=== PATIENT | female | born 1975 | race Hispanic/Latino ===

== ENCOUNTER → 2018-06-09 | Outpatient (CLI) | payer MEDICARE ==
[~2018-06-09] MED LIST: IOHEXOL-350 50ML VIAL IV ONE
== END | disposition home or self-care (01) ==
LOC: RAH 08:23
PROVIDERS: ATTEND Family Medicine
DX: R10.11 Right upper quadrant pain (principal); E11.69 Type 2 diabetes mellitus with other specified complication; Z90.49 Acquired absence of other specified parts of digestive tract
CPT/HCPCS: 74170; Q9967

== ENCOUNTER 2018-12-04 22:42 | Emergency (ER) | payer MEDICARE ==
[2018-12-04 23:31] LABS: APPEARANCE,URINE Cloudy (CLEAR); BILIRUBIN,URINE Negative (NEGATIVE); COLOR,URINE Yellow (YELLOW); GLUCOSE, URINE (UA) Negative (NEGATIVE); KETONES,URINE Negative (NEGATIVE); LEUKOCYTE ESTERASE ,URINE Large (NEGATIVE); NITRATE,URINE Negative (NEGATIVE); OCCULT BLOOD,URINE Negative (NEGATIVE); PROTEIN,URINE Negative (NEGATIVE); UROBILINOGEN,URINE 0.2 mg/dL (0.2-1.0)
[2018-12-04 23:42] LABS: BASOPHILS % (AUTO) 0.6 % (0.0-5.0); EOSINOPHILS % (AUTO) 2.8 % (0.0-8.0); HEMATOCRIT 38.2 % (36-48); LYMPHOCYTES % (AUTO) 15.3 % (21.0-51.0); MEAN CORPUSCULAR HEMOGLOBIN 28.9 pg (27.0-33.0); MEAN CORPUSCULAR HGB CONC 33.5 g/dL (32.0-36.0); MEAN CORPUSCULAR VOLUME 86.4 fL (79-99); MONOCYTES % (AUTO) 5.3 % (3.0-13.0); NUCLEATED RED BLOOD CELLS 0.1 % (0.0-0.19); PLATELET COUNT (AUTO) 292 K/uL (130-400); RED BLOOD CELL COUNT(AUTO) 4.43 MIL/uL (4.00-5.50); RED CELL DISTRIBUTION WIDTH 12.8 % (11.0-15.5); WHITE BLOOD COUNT (AUTO) 7.5 K/uL (4.8-10.8)
[2018-12-04] MEDS ORDERED: ONDANSETRON HCL 4 MG/2 ML VIAL ONE (23:42)
[2018-12-04] MEDS ORDERED: METOCLOPRAMIDE 10 MG/2 ML VIAL ONE (23:42)
[2018-12-04] MEDS ORDERED: SODIUM CHLORIDE 0.9% 1000ML 2,000 ML IV ONE (23:43)
[2018-12-04 23:47] LABS: BACTERIA,URINE None Seen /HPF (None Seen); RBC,URINE None Seen /HPF (0-1)
[2018-12-04 23:50] LABS: CREATININE 0.8 mg/dL (0.5-1.5); POTASSIUM 4.1 mmol/L (3.5-5.1)
[2018-12-04 23:54] LABS: INR 0.92 (0.85-1.15); PROTHROMBIN TIME 9.7 SEC (9.6-11.6)
[2018-12-04 23:55] LABS: ALBUMIN 3.2 g/dL (3.5-5.0); BILIRUBIN,TOTAL 0.2 mg/dL (0.2-1.0); TOTAL PROTEIN, SERUM 6.9 g/dL (6.0-8.3)
[2018-12-04] MEDS ORDERED: IOHEXOL-350 75 ML VIAL IV ONE (23:58)
[2018-12-05] MEDS ORDERED: DIPHENOXYLATE HCL/ATROPINE 2.5/0.025 MG TAB PO ONE (01:49)
[2018-12-05] MEDS ORDERED: DiphenhydrAMINE HCL 50 MG/ML VIAL ONE (01:49)
== END 2018-12-05 02:08 | disposition home or self-care (01) ==
LOC: EEVIPCON 22:42 → EDH 22:42
DX: E86.9 Volume depletion, unspecified (principal); R11.2 Nausea with vomiting, unspecified; R19.7 Diarrhea, unspecified; R10.31 Right lower quadrant pain; E11.9 Type 2 diabetes mellitus without complications; E78.5 Hyperlipidemia, unspecified; F41.9 Anxiety disorder, unspecified; F32.9 Major depressive disorder, single episode, unspecified; Z88.6 Allergy status to analgesic agent; Z90.710 Acquired absence of both cervix and uterus
CPT/HCPCS: 36415; 74177; 80053; 81001; 82550; 83605; 83690; 84484; 85025; 85610; 85730; 93005; 96361; 96374; 96375 ×2; 99285; J1200; J2405; J2765; J7030; Q9967

== ENCOUNTER 2019-09-27 | Emergency (ER) | payer MEDICARE | END 2019-09-27 21:11 | disposition home or self-care (01) ==

== ENCOUNTER 2020-02-20 19:55 | Emergency (ER) | payer MEDICARE ==
[2020-02-20 20:31] LABS: APPEARANCE,URINE Clear (CLEAR); BILIRUBIN,URINE Negative (NEGATIVE); COLOR,URINE Yellow (YELLOW); GLUCOSE, URINE (UA) Negative (NEGATIVE); KETONES,URINE Negative (NEGATIVE); LEUKOCYTE ESTERASE ,URINE Negative (NEGATIVE); NITRATE,URINE Negative (NEGATIVE); OCCULT BLOOD,URINE Negative (NEGATIVE); PH,URINE 6.5 (5.0-8.0); PROTEIN,URINE Negative (NEGATIVE)
[2020-02-20 21:12] LABS: BASOPHILS % (AUTO) 0.5 % (0.0-5.0); EOSINOPHILS % (AUTO) 3.6 % (0.0-8.0); HEMATOCRIT 34.5 % (36-48); LYMPHOCYTES % (AUTO) 35.2 % (21.0-51.0); MEAN CORPUSCULAR HEMOGLOBIN 28.2 pg (27.0-33.0); MEAN CORPUSCULAR HGB CONC 32.8 g/dL (32.0-36.0); NEUTROPHILS % (AUTO) 52.5 % (40.0-77.0); PLATELET COUNT (AUTO) 314 K/uL (130-400); RED BLOOD CELL COUNT(AUTO) 4.01 MIL/uL (4.00-5.50); RED CELL DISTRIBUTION WIDTH 12.4 % (11.0-15.5); WHITE BLOOD COUNT (AUTO) 8.4 K/uL (4.8-10.8)
[2020-02-20 21:19] LABS: CREATININE 0.8 mg/dL (0.5-1.5); POTASSIUM 3.7 mmol/L (3.5-5.1)
[2020-02-20 21:24] LABS: ALBUMIN 3.4 g/dL (3.5-5.0); BILIRUBIN,TOTAL 0.2 mg/dL (0.2-1.0); TOTAL PROTEIN, SERUM 6.9 g/dL (6.0-8.3)
[2020-02-20] MEDS ORDERED: DiphenhydrAMINE HCL 50 MG/ML VIAL ONE (22:05)
[2020-02-20] MEDS ORDERED: FAMOTIDINE/PF 20 MG/2 ML VIAL IV ONE (22:06)
[2020-02-20] MEDS ORDERED: METOCLOPRAMIDE 10 MG/2 ML VIAL ONE (22:07)
[2020-02-20] MEDS ORDERED: SODIUM CHLORIDE 0.9% 100 ML IV ONE (22:18)
[2020-02-20] MEDS ORDERED: MORPHINE SULFATE 4 MG/1ML SYG ONE (23:54)
== END 2020-02-21 01:30 | disposition home or self-care (01) ==
LOC: EDH 19:55
DX: K52.89 Other specified noninfective gastroenteritis and colitis (principal); E78.5 Hyperlipidemia, unspecified; E11.9 Type 2 diabetes mellitus without complications; F41.9 Anxiety disorder, unspecified; Z79.899 Other long term (current) drug therapy; Z90.710 Acquired absence of both cervix and uterus
CPT/HCPCS: 36415; 74176; 80053; 81003; 81025; 85025; 96374; 96375 ×2; 99284; J1200; J2270; J2765; J3490

== ENCOUNTER 2020-03-11 18:41 | Emergency (ER) | payer MEDICARE ==
[2020-03-11] MEDS ORDERED: ONDANSETRON HCL 4 MG/2 ML VIAL ONE (20:06)
[2020-03-11] MEDS ORDERED: KETOROLAC TROMETHAMINE 30MG/ML ONE (20:06)
[2020-03-11 20:33] LABS: APPEARANCE,URINE Clear (CLEAR); BILIRUBIN,URINE Negative (NEGATIVE); COLOR,URINE Yellow (YELLOW); GLUCOSE, URINE (UA) Negative (NEGATIVE); KETONES,URINE Negative (NEGATIVE); LEUKOCYTE ESTERASE ,URINE Negative (NEGATIVE); NITRATE,URINE Negative (NEGATIVE); OCCULT BLOOD,URINE Negative (NEGATIVE); PH,URINE 5.5 (5.0-8.0); PROTEIN,URINE Negative (NEGATIVE)
[2020-03-11 20:37] LABS: BASOPHILS % (AUTO) 0.8 % (0.0-5.0); EOSINOPHILS % (AUTO) 3.3 % (0.0-8.0); LYMPHOCYTES % (AUTO) 37.1 % (21.0-51.0); MEAN CORPUSCULAR HEMOGLOBIN 28.9 pg (27.0-33.0); MEAN CORPUSCULAR HGB CONC 33.1 g/dL (32.0-36.0); MEAN CORPUSCULAR VOLUME 87.1 fL (79-99); NEUTROPHILS % (AUTO) 50.5 % (40.0-77.0); PLATELET COUNT (AUTO) 310 K/uL (130-400); RED BLOOD CELL COUNT(AUTO) 4.02 MIL/uL (4.00-5.50); RED CELL DISTRIBUTION WIDTH 12.3 % (11.0-15.5); WHITE BLOOD COUNT (AUTO) 7.5 K/uL (4.8-10.8)
[2020-03-11 20:45] LABS: CREATININE 0.7 mg/dL (0.5-1.5); POTASSIUM 3.9 mmol/L (3.5-5.1)
[2020-03-11 20:50] LABS: ALBUMIN 3.5 g/dL (3.5-5.0); BILIRUBIN,TOTAL 0.2 mg/dL (0.2-1.0)
[2020-03-11] MEDS ORDERED: IOHEXOL-350 75 ML VIAL IV ONE (21:13)
[2020-03-11] MEDS ORDERED: MORPHINE SULFATE 2 MG/ML 1ML SYG ONE (21:19)
== END 2020-03-11 23:46 | disposition home or self-care (01) ==
LOC: EDH 18:41
DX: N20.0 Calculus of kidney (principal); E11.9 Type 2 diabetes mellitus without complications; E78.5 Hyperlipidemia, unspecified; F41.9 Anxiety disorder, unspecified; F32.9 Major depressive disorder, single episode, unspecified; Z90.710 Acquired absence of both cervix and uterus; Z98.890 Other specified postprocedural states; Z88.6 Allergy status to analgesic agent
CPT/HCPCS: 36415; 74177; 80053; 81003; 83690; 84484; 85025; 96374; 96375; 99285; J1885; J2405; Q9967

== ENCOUNTER 2020-03-26 11:22 | Emergency (ER) | payer MEDICARE ==
[2020-03-26] MEDS ORDERED: ONDANSETRON 4 MG TABLET ONE (12:31)
[2020-03-26] MEDS ORDERED: MORPHINE SULFATE 4 MG/1ML SYG ONE (12:31)
[2020-03-26 12:51] LABS: APPEARANCE,URINE Clear (CLEAR); BILIRUBIN,URINE Negative (NEGATIVE); COLOR,URINE Yellow (YELLOW); GLUCOSE, URINE (UA) Negative (NEGATIVE); KETONES,URINE Negative (NEGATIVE); LEUKOCYTE ESTERASE ,URINE Negative (NEGATIVE); NITRATE,URINE Negative (NEGATIVE); OCCULT BLOOD,URINE Negative (NEGATIVE); PROTEIN,URINE Negative (NEGATIVE); UROBILINOGEN,URINE 0.2 mg/dL (0.2-1.0)
[2020-03-26 13:20] LABS: BASOPHILS % (AUTO) 0.6 % (0.0-5.0); EOSINOPHILS % (AUTO) 3.1 % (0.0-8.0); HEMATOCRIT 38.9 % (36-48); LYMPHOCYTES % (AUTO) 36.3 % (21.0-51.0); MEAN CORPUSCULAR HEMOGLOBIN 28.1 pg (27.0-33.0); MEAN CORPUSCULAR HGB CONC 32.4 g/dL (32.0-36.0); MEAN CORPUSCULAR VOLUME 86.8 fL (79-99); MONOCYTES % (AUTO) 7.4 % (3.0-13.0); NEUTROPHILS % (AUTO) 52.3 % (40.0-77.0); PLATELET COUNT (AUTO) 325 K/uL (130-400); RED BLOOD CELL COUNT(AUTO) 4.48 MIL/uL (4.00-5.50); RED CELL DISTRIBUTION WIDTH 12.2 % (11.0-15.5); WHITE BLOOD COUNT (AUTO) 6.2 K/uL (4.8-10.8)
[2020-03-26 13:31] LABS: CREATININE 0.7 mg/dL (0.5-1.5); POTASSIUM 3.9 mmol/L (3.5-5.1)
[2020-03-26 13:35] LABS: ALBUMIN 3.6 g/dL (3.5-5.0); BILIRUBIN,TOTAL 0.2 mg/dL (0.2-1.0); TOTAL PROTEIN, SERUM 7.4 g/dL (6.0-8.3)
[2020-03-26 13:51] LABS: B-TYPE NATRIURETIC PEPTIDE 18 pg/mL (0-100)
[2020-03-26] MEDS ORDERED: KETOROLAC TROMETHAMINE 30MG/ML ONE (14:25)
[2020-03-26] MEDS ORDERED: CYCLOBENZAPRINE HCL 10 MG TABLET ONE (14:26)
== END 2020-03-26 14:39 | disposition home or self-care (01) ==
LOC: EDH 11:22
DX: R07.89 Other chest pain (principal); M54.5 Low back pain; R42 Dizziness and giddiness; R11.0 Nausea; E11.9 Type 2 diabetes mellitus without complications; E78.5 Hyperlipidemia, unspecified; F41.9 Anxiety disorder, unspecified; F32.9 Major depressive disorder, single episode, unspecified; Z88.6 Allergy status to analgesic agent; Z90.710 Acquired absence of both cervix and uterus
CPT/HCPCS: 36415; 71045; 80053; 81003; 82550; 83880; 84484; 85025; 93005; 96372 ×2; 99285; J1885; J2270; Q0162

== ENCOUNTER 2020-04-16 20:15 | Emergency (ER) | payer MEDICARE ==
[2020-04-16] MEDS ORDERED: METOCLOPRAMIDE 10 MG/2 ML VIAL ONE (21:18)
[2020-04-16] MEDS ORDERED: 0.9%NACL 1000ML 1,000 ML IV ONE (21:19)
[2020-04-16] MEDS ORDERED: DiphenhydrAMINE HCL 50 MG/ML VIAL ONE (21:19)
[2020-04-16 21:39] LABS: BASOPHILS % (AUTO) 0.6 % (0.0-5.0); EOSINOPHILS % (AUTO) 3.3 % (0.0-8.0); HEMATOCRIT 37.5 % (36-48); LYMPHOCYTES % (AUTO) 33.6 % (21.0-51.0); MEAN CORPUSCULAR HEMOGLOBIN 28.7 pg (27.0-33.0); MEAN CORPUSCULAR HGB CONC 33.1 g/dL (32.0-36.0); MEAN CORPUSCULAR VOLUME 86.8 fL (79-99); MONOCYTES % (AUTO) 7.7 % (3.0-13.0); NEUTROPHILS % (AUTO) 54.6 % (40.0-77.0); PLATELET COUNT (AUTO) 344 K/uL (130-400); RED BLOOD CELL COUNT(AUTO) 4.32 MIL/uL (4.00-5.50); RED CELL DISTRIBUTION WIDTH 11.9 % (11.0-15.5); WHITE BLOOD COUNT (AUTO) 8.7 K/uL (4.8-10.8)
[2020-04-16 21:44] LABS: APPEARANCE,URINE Clear (CLEAR); BILIRUBIN,URINE Negative (NEGATIVE); COLOR,URINE Yellow (YELLOW); GLUCOSE, URINE (UA) Negative (NEGATIVE); KETONES,URINE Negative (NEGATIVE); LEUKOCYTE ESTERASE ,URINE Trace (NEGATIVE); NITRATE,URINE Negative (NEGATIVE); OCCULT BLOOD,URINE Negative (NEGATIVE); PH,URINE 5.5 (5.0-8.0); PROTEIN,URINE Negative (NEGATIVE); UROBILINOGEN,URINE 0.2 mg/dL (0.2-1.0)
[2020-04-16 21:49] LABS: CREATININE 0.9 mg/dL (0.5-1.5); POTASSIUM 3.8 mmol/L (3.5-5.1)
[2020-04-16 21:54] LABS: BACTERIA,URINE Few /HPF (None Seen); RBC,URINE 0-1 /HPF (0-1)
[2020-04-16 21:54] LABS: ALBUMIN 3.8 g/dL (3.5-5.0); BILIRUBIN,TOTAL 0.3 mg/dL (0.2-1.0); TOTAL PROTEIN, SERUM 7.7 g/dL (6.0-8.3)
[2020-04-16 21:55] LABS: MUCUS,URINE Rare LPF (None Seen); SQUAMOUS EPITHELIAL CELL,UR Few /HPF (0-2)
[2020-04-16 21:57] LABS: AMPHET/METH SCREEN,URINE NEGATIVE (NEGATIVE); BARBITURATE SCREEN, URINE NEGATIVE (NEGATIVE); BENZODIAZEPINES SCREEN,URINE NEGATIVE (NEGATIVE); CANNABINOID SCREEN,URINE NEGATIVE (NEGATIVE); COCAINE SCREEN,URINE NEGATIVE (NEGATIVE); OPIATE SCREEN,URINE NEGATIVE (NEGATIVE); PHENCYCLIDINE SCREEN,URINE NEGATIVE (NEGATIVE)
[2020-08-23] MEDS ORDERED: CYCL-309 PO (04:19)
[2020-10-24] MEDS ORDERED: ESTR2TAB25 PO (12:01)
[2020-10-24] MEDS ORDERED: ESCI-8 PO (12:01)
[2020-10-24] MEDS ORDERED: BUPR150T8 PO (12:01)
[2020-10-24] MEDS ORDERED: MULT-1367 PO (12:01)
[2020-10-24] MEDS ORDERED: LITH300T4 PO (12:01)
[2020-10-24] MEDS ORDERED: TRAZ-187 PO (12:01)
[2020-10-24] MEDS ORDERED: ERGO500093 PO (12:01)
[2020-10-24] MEDS ORDERED: ISOS10TA8 PO (12:01)
[2020-10-24] MEDS ORDERED: LINA145C PO (12:01)
[2020-10-24] MEDS ORDERED: BUSP10TA3 PO (12:01)
[2020-10-24] MEDS ORDERED: OLAN10TA73 PO (12:01)
[2020-10-24] MEDS ORDERED: PRAV80TA21 PO (12:01)
[2020-11-27] MEDS ORDERED: CYCL-309 PO (22:04)
[2020-12-03] MEDS ORDERED: CYCL10TA16 PO (20:32)
== END 2020-04-16 23:13 | disposition home or self-care (01) ==
LOC: EDH 20:15
DX: B34.9 Viral infection, unspecified (principal); R51.9 Headache, unspecified; Z20.822 Contact with and (suspected) exposure to COVID-19; E11.9 Type 2 diabetes mellitus without complications; E78.5 Hyperlipidemia, unspecified; F41.9 Anxiety disorder, unspecified; F32.9 Major depressive disorder, single episode, unspecified; R11.2 Nausea with vomiting, unspecified; E07.9 Disorder of thyroid, unspecified; Z90.710 Acquired absence of both cervix and uterus; Z88.6 Allergy status to analgesic agent
CPT/HCPCS: 36415; 80053; 80305; 81001; 85025; 87426; 96361; 96374; 96375; 99284; J1200; J2765; J7030; U0003

== ENCOUNTER 2020-05-20 20:06 | Emergency (ER) | payer MEDICARE ==
[2020-05-20] MEDS ORDERED: SOLU-MEDROL 125MG VIAL ONE (21:06)
[2020-05-20 21:38] LABS: APPEARANCE,URINE Clear (CLEAR); BASOPHILS % (AUTO) 0.6 % (0.0-5.0); BILIRUBIN,URINE Negative (NEGATIVE); COLOR,URINE Yellow (YELLOW); EOSINOPHILS % (AUTO) 2.9 % (0.0-8.0); GLUCOSE, URINE (UA) Negative (NEGATIVE); HEMATOCRIT 34.6 % (36-48); KETONES,URINE Trace mg/dL (NEGATIVE); LEUKOCYTE ESTERASE ,URINE Negative (NEGATIVE); LYMPHOCYTES % (AUTO) 32.7 % (21.0-51.0); MEAN CORPUSCULAR HEMOGLOBIN 28.9 pg (27.0-33.0); MEAN CORPUSCULAR HGB CONC 32.9 g/dL (32.0-36.0); MEAN CORPUSCULAR VOLUME 87.6 fL (79-99); MONOCYTES % (AUTO) 6.8 % (3.0-13.0); NEUTROPHILS % (AUTO) 56.9 % (40.0-77.0); NITRATE,URINE Negative (NEGATIVE); OCCULT BLOOD,URINE Negative (NEGATIVE); PLATELET COUNT (AUTO) 311 K/uL (130-400); PROTEIN,URINE Negative (NEGATIVE); RED BLOOD CELL COUNT(AUTO) 3.95 MIL/uL (4.00-5.50); UROBILINOGEN,URINE 0.2 mg/dL (0.2-1.0); WHITE BLOOD COUNT (AUTO) 7.9 K/uL (4.8-10.8)
[2020-05-20 21:41] LABS: HCG,QUAL RESULT NEGATIVE (NEGATIVE)
[2020-05-20 21:48] LABS: CREATININE 0.9 mg/dL (0.5-1.5); POTASSIUM 3.8 mmol/L (3.5-5.1)
[2020-05-20 21:51] LABS: ALBUMIN 3.5 g/dL (3.5-5.0); BILIRUBIN,TOTAL 0.2 mg/dL (0.2-1.0)
[2020-08-23] MEDS ORDERED: CYCL-309 PO (04:19)
[2020-10-24] MEDS ORDERED: LINA145C PO (12:01)
[2020-10-24] MEDS ORDERED: ESTR2TAB25 PO (12:01)
[2020-10-24] MEDS ORDERED: ESCI-8 PO (12:01)
[2020-10-24] MEDS ORDERED: OLAN10TA73 PO (12:01)
[2020-10-24] MEDS ORDERED: LITH300T4 PO (12:01)
[2020-10-24] MEDS ORDERED: TRAZ-187 PO (12:01)
[2020-10-24] MEDS ORDERED: BUPR150T8 PO (12:01)
[2020-10-24] MEDS ORDERED: BUSP10TA3 PO (12:01)
[2020-10-24] MEDS ORDERED: MULT-1367 PO (12:01)
[2020-10-24] MEDS ORDERED: PRAV80TA21 PO (12:01)
[2020-10-24] MEDS ORDERED: ERGO500093 PO (12:01)
[2020-10-24] MEDS ORDERED: ISOS10TA8 PO (12:01)
[2020-11-27] MEDS ORDERED: CYCL-309 PO (22:04)
[2020-12-03] MEDS ORDERED: CYCL10TA16 PO (20:32)
== END 2020-05-21 00:04 | disposition home or self-care (01) ==
LOC: EDH 20:06
DX: S46.812A Strain of other muscles, fascia and tendons at shoulder and upper arm level, left arm, initial encounter (principal); M54.6 Pain in thoracic spine; F41.9 Anxiety disorder, unspecified; F32.9 Major depressive disorder, single episode, unspecified; E11.9 Type 2 diabetes mellitus without complications; E78.5 Hyperlipidemia, unspecified; E07.9 Disorder of thyroid, unspecified; Z88.5 Allergy status to narcotic agent; Z90.710 Acquired absence of both cervix and uterus; X58.XXXA Exposure to other specified factors, initial encounter; Y93.89 Activity, other specified; Y92.89 Other specified places as the place of occurrence of the external cause; Y99.8 Other external cause status
CPT/HCPCS: 36415; 71045; 80053; 81003; 81025; 85025; 96374; 99284; J2930

== ENCOUNTER → 2020-06-24 | Outpatient (CLI) | payer MEDICARE | END | disposition home or self-care (01) | LOC: RAH 11:00 | PROVIDERS: ATTEND Family Medicine | DX: M75.52 Bursitis of left shoulder (principal); M75.112 Incomplete rotator cuff tear or rupture of left shoulder, not specified as traumatic | CPT/HCPCS: 73221 ==

== ENCOUNTER 2020-08-22 22:20 | Emergency (ER) | payer MEDICARE ==
[~2020-08-22] VITALS: Ht 165.1 cm; Wt 97.5 kg
[2020-08-22 22:28] VITALS: BP 126/74
[2020-08-23] MEDS ORDERED: PHARMACY COMMUNICATION MISC SCH
[2020-08-23 00:22] VITALS: BP 129/71
[2020-08-23] MEDS ORDERED: ORPHENADRINE CITRATE 30 MG/ML ML IM SCH (02:15)
[2020-08-23] MEDS ORDERED: KETOROLAC 60 MG VIAL (30MG/ML) IM SCH (02:15)
[2020-08-23 02:43] VITALS: BP 131/79
[2020-08-23] MEDS ORDERED: ACETAMINOPHEN-CODEINE 300/30MG TAB PO ONE (03:45)
[2020-08-23] MEDS ORDERED: ACETAMINOPHEN 500 MG TABLET PO SCH (03:45)
[2020-08-23] MEDS ORDERED: MELO7.5T12 PO (04:19)
[2020-08-23] MEDS ORDERED: LIDOP TP (04:19)
[2020-08-23] MEDS ORDERED: CYCL10TA7 PO (04:19)
[2020-08-23 04:27] VITALS: BP 129/74
== END 2020-08-23 04:35 | disposition home or self-care (01) ==
LOC: EDH 08-23 04:03
DX: S60.212A Contusion of left wrist, initial encounter (principal); M54.5 Low back pain; M54.6 Pain in thoracic spine; M25.512 Pain in left shoulder; M54.2 Cervicalgia; E78.5 Hyperlipidemia, unspecified; F41.9 Anxiety disorder, unspecified; F31.9 Bipolar disorder, unspecified; Z88.5 Allergy status to narcotic agent; Z98.84 Bariatric surgery status; W01.0XXA Fall on same level from slipping, tripping and stumbling without subsequent striking against object, initial encounter; Y93.01 Activity, walking, marching and hiking; Y92.89 Other specified places as the place of occurrence of the external cause; Y99.8 Other external cause status
CPT/HCPCS: 72040; 72131; 73110; 96372 ×2; 99284; J1885; J2360

== ENCOUNTER 2020-10-08 22:44 | Emergency (ER) | payer MEDICARE ==
[~2020-10-08] VITALS: Ht 165.1 cm; Wt 92.5 kg
[~2020-10-08 22:44] MED LIST changes: +CYCL10TA7 PO; -IOHEXOL-350 50ML VIAL IV ONE; +LIDOP TP; +MELO7.5T12 PO
[2020-10-08 23:55] LABS: APPEARANCE,URINE Clear (CLEAR); BILIRUBIN,URINE Negative (NEGATIVE); COLOR,URINE Yellow (YELLOW); GLUCOSE, URINE (UA) Negative (NEGATIVE); KETONES,URINE Negative (NEGATIVE); LEUKOCYTE ESTERASE ,URINE Trace (NEGATIVE); NITRATE,URINE Negative (NEGATIVE); OCCULT BLOOD,URINE Negative (NEGATIVE); PH,URINE 5.5 (5.0-8.0); PROTEIN,URINE Negative (NEGATIVE)
[2020-10-09 00:05] LABS: BACTERIA,URINE None Seen /HPF (None Seen); MUCUS,URINE Rare LPF (None Seen); RBC,URINE None Seen /HPF (0-1); SQUAMOUS EPITHELIAL CELL,UR Few /HPF (0-2); WBC,URINE 0-1 /HPF (0-1)
[2020-10-09] MEDS ORDERED: HYDR25SU38 RC (00:09)
[2020-10-09] MEDS ORDERED: LIDO15CR11 TP (00:09)
[2020-10-09] MEDS ORDERED: DICY20TA2 PO (00:09)
[2020-10-09] MEDS ORDERED: DICYCLOMINE 20MG (10MG/ML) AMP IM ONE (00:30)
[2020-10-09] MEDS ORDERED: LACTULOSE 20 GM/30 ML UDCUP PO ONE (00:30)
[2020-10-09] MEDS: LIDOCAINE HCL 2% JELLY 5 ML MM SCH (00:50)
== END 2020-10-09 00:51 | disposition home or self-care (01) ==
LOC: EDH 22:44
DX: K64.4 Residual hemorrhoidal skin tags (principal); K59.00 Constipation, unspecified; F31.9 Bipolar disorder, unspecified; F41.9 Anxiety disorder, unspecified; Z79.1 Long term (current) use of non-steroidal anti-inflammatories (NSAID); Z88.5 Allergy status to narcotic agent; Z98.84 Bariatric surgery status
CPT/HCPCS: 81001; 96372; 99283; J0500

== ENCOUNTER 2020-10-13 10:01 | Emergency (ER) | payer MEDICARE ==
[~2020-10-13] VITALS: Ht 165.1 cm; Wt 94.3 kg
[~2020-10-13 10:01] MED LIST changes: +DICY20TA2 PO; +HYDR25SU38 RC; +LIDO15CR11 TP
[2020-10-13 10:03] VITALS: BP 157/72
[2020-10-13 10:34] LABS: APPEARANCE,URINE Clear (CLEAR); BILIRUBIN,URINE Negative (NEGATIVE); COLOR,URINE Yellow (YELLOW); GLUCOSE, URINE (UA) Negative (NEGATIVE); KETONES,URINE Negative (NEGATIVE); LEUKOCYTE ESTERASE ,URINE Negative (NEGATIVE); NITRATE,URINE Negative (NEGATIVE); OCCULT BLOOD,URINE Negative (NEGATIVE); PROTEIN,URINE Negative (NEGATIVE); UROBILINOGEN,URINE 0.2 mg/dL (0.2-1.0)
[2020-10-13 11:11] LABS: MEAN CORPUSCULAR HEMOGLOBIN 28.3 pg (27.0-33.0); MEAN CORPUSCULAR HGB CONC 32.7 g/dL (32.0-36.0); MEAN CORPUSCULAR VOLUME 86.7 fL (79-99); PLATELET COUNT (AUTO) 317 K/uL (130-400); RED BLOOD CELL COUNT(AUTO) 4.27 MIL/uL (4.00-5.50); RED CELL DISTRIBUTION WIDTH 12.1 % (11.0-15.5); WHITE BLOOD COUNT (AUTO) 6.3 K/uL (4.8-10.8)
[2020-10-13 11:13] LABS: CREATININE 0.7 mg/dL (0.5-1.5); POTASSIUM 4.2 mmol/L (3.5-5.1)
[2020-10-13 11:18] LABS: ALBUMIN 3.6 g/dL (3.5-5.0); BILIRUBIN,TOTAL 0.3 mg/dL (0.2-1.0); TOTAL PROTEIN, SERUM 7.1 g/dL (6.0-8.3)
[2020-10-13 11:50] VITALS: BP 104/68
[2020-10-13 11:54] LABS: BASOPHILS % (MANUAL) 1 % (0-2); EOSINOPHILS % (MANUAL) 2 % (1-6); LYMPHOCYTES % (MANUAL) 31 % (22-44); MAN.DIFF COMMENT-IMPRESSION MANUAL DIFFERENTIAL; MONOCYTES % (MANUAL) 13 % (2-9); PLATELET MORPHOLOGY COMMENT ADEQUATE; REACTIVE LYMPHOCYTES 2 % (0-0); SEGMENTED NEUTROPHILS % 51 % (40-70)
[2020-10-13] MEDS ORDERED: HYDR25SU38 RC (12:45)
[2020-10-13] MEDS ORDERED: FENTANYL CITRATE PF 50 MCG/1 ML 2ML VIAL IM ONE (13:00)
[2020-10-13] MEDS ORDERED: FENTANYL 50 MCG/HR PATCH TD SCH (13:00)
[2020-10-13 13:30] VITALS: BP 128/75
== END 2020-10-13 13:39 | disposition home or self-care (01) ==
LOC: EDH 10:01
DX: K64.4 Residual hemorrhoidal skin tags (principal); F31.9 Bipolar disorder, unspecified; F41.9 Anxiety disorder, unspecified; Z79.1 Long term (current) use of non-steroidal anti-inflammatories (NSAID); Z90.710 Acquired absence of both cervix and uterus; Z90.49 Acquired absence of other specified parts of digestive tract
CPT/HCPCS: 36415; 80053; 81003; 84484; 85025; 93005; 96372; 99284; J3010

== ENCOUNTER 2020-10-27 06:38 | Day surgery (SDC) | payer MEDICARE ==
[2020-10-23 08:58] LABS: BASOPHILS % (AUTO) 1.1 % (0.0-5.0); EOSINOPHILS % (AUTO) 4.1 % (0.0-8.0); HEMATOCRIT 36.1 % (36-48); MEAN CORPUSCULAR HEMOGLOBIN 28.3 pg (27.0-33.0); MEAN CORPUSCULAR VOLUME 85.7 fL (79-99); NEUTROPHILS % (AUTO) 55.6 % (40.0-77.0); PLATELET COUNT (AUTO) 330 K/uL (130-400); RED BLOOD CELL COUNT(AUTO) 4.21 MIL/uL (4.00-5.50); RED CELL DISTRIBUTION WIDTH 12.1 % (11.0-15.5); WHITE BLOOD COUNT (AUTO) 5.6 K/uL (4.8-10.8)
[2020-10-23 09:10] LABS: CREATININE 0.8 mg/dL (0.5-1.5); POTASSIUM 3.6 mmol/L (3.5-5.1)
[2020-10-24 11:38] VITALS: BP 140/77
[2020-10-27] VITALS (15 sets, daily range): BP systolic 121–138; BP diastolic 67–78
[~2020-10-27] VITALS: Ht 165.1 cm; Wt 91.5 kg
[~2020-10-27 06:38] MED LIST changes: +BUPR150T8 PO; +BUSP10TA3 PO; -CYCL10TA7 PO; -DICY20TA2 PO; +ERGO500093 PO; +ESCI-8 PO; +ESTR2TAB PO; -HYDR25SU38 RC; +ISOS10TA8 PO; -LIDO15CR11 TP; -LIDOP TP; +LINA145C PO; +LITH300T4 PO; -MELO7.5T12 PO; +MULT-1367 PO; +OLAN10TA73 PO; +PRAV80TA21 PO; +TRAZ-187 PO
[2020-10-27] MEDS ORDERED: EPINEPHRINE 1 MG/ML 30ML VIAL IJ ONE (07:43)
[2020-10-27] MEDS ORDERED: LACTATED RINGERS 1000ML 1,000 ML IV ONE (07:44)
[2020-10-27] MEDS ORDERED: PROPOFOL 10 MG/ML 20ML VIAL IV ONE (07:50)
[2020-10-27] MEDS ORDERED: SUCCINYLCHOLINE CHLORIDE 20 MG/ML 10 ML VIAL ONE (07:50)
[2020-10-27] MEDS ORDERED: LIDOCAINE PF 100MG/5ML (2%) SYRINGE 5ML ONE (07:50)
[2020-10-27] MEDS ORDERED: MIDAZOLAM HCL 1 MG/ML 2ML VIAL ONE (07:51)
[2020-10-27] MEDS: CEFAZOLIN SODIUM 1 GM VIAL ONE ×2 (07:57→09:00)
[2020-10-27] MEDS ORDERED: ROCURONIUM 10MG/1ML SYR 10 MG/ML ML ONE (08:29)
[2020-10-27] MEDS ORDERED: EPHEDRINE SULFATE 50 MG/ML AMPULE ONE (08:52)
[2020-10-27] MEDS ORDERED: NEOSTIGMINE 5MG/5ML SYR IV ONE (09:52)
[2020-10-27] MEDS ORDERED: GLYCOPYRROLATE 1 MG/5 ML SYRINGE ONE (09:52)
[2020-10-27] MEDS ORDERED: ONDANSETRON 4MG INJ ONE (09:52)
[2020-10-27] MEDS ORDERED: CEPH500B PO (10:18)
[2020-10-27] MEDS ORDERED: IBUP-2070 PO (10:18)
[2020-10-27] MEDS ORDERED: HYDR-4060 PO (10:18)
[2020-10-27] MEDS ORDERED: ROPIVACAINE 0.5% 5MG/ML 30ML IJ ONE (11:30)
== END 2020-10-27 12:13 | disposition home or self-care (01) ==
LOC: DAH 06:38 → EDSTATUS 12:00 → DAH 12:13
PROVIDERS: ATTEND Orthopaedic Surgery
DX: M75.02 Adhesive capsulitis of left shoulder (principal); M75.112 Incomplete rotator cuff tear or rupture of left shoulder, not specified as traumatic; Z20.822 Contact with and (suspected) exposure to COVID-19; M77.8 Other enthesopathies, not elsewhere classified; M75.42 Impingement syndrome of left shoulder; K21.9 Gastro-esophageal reflux disease without esophagitis; E78.5 Hyperlipidemia, unspecified; E66.9 Obesity, unspecified; F31.9 Bipolar disorder, unspecified; F41.9 Anxiety disorder, unspecified; Z98.890 Other specified postprocedural states; Z68.33 Body mass index [BMI] 33.0-33.9, adult; Z98.84 Bariatric surgery status; Z90.710 Acquired absence of both cervix and uterus; Z82.49 Family history of ischemic heart disease and other diseases of the circulatory system; Z83.3 Family history of diabetes mellitus; Z90.49 Acquired absence of other specified parts of digestive tract
CPT/HCPCS: 29824; 29826; 36415; 64415; 76942; 80048; 84703; 85025; 87635; A4215; A4221; A4222; A4223; A4565; A4600; A4649 ×3; A4663; A4930 ×3; A5120; A6204; C9803; G0168; J0171; J0330; J0690; J2001; J2250; J2405; J2704; J2710; J2795; J3490 ×2; J7030; J7120

== ENCOUNTER 2020-11-02 14:27 | Emergency (ER) | payer MEDICARE ==
[~2020-11-02] VITALS: Ht 165.1 cm; Wt 94.3 kg
[~2020-11-02 14:27] MED LIST changes: +CEPH500B PO; +HYDR-4060 PO; +IBUP-2070 PO
[2020-11-02 14:30] VITALS: BP 111/70
[2020-11-02 15:03] LABS: APPEARANCE,URINE Clear (CLEAR); BILIRUBIN,URINE Negative (NEGATIVE); COLOR,URINE Yellow (YELLOW); GLUCOSE, URINE (UA) Negative (NEGATIVE); KETONES,URINE Negative (NEGATIVE); LEUKOCYTE ESTERASE ,URINE Negative (NEGATIVE); NITRATE,URINE Negative (NEGATIVE); OCCULT BLOOD,URINE Negative (NEGATIVE); PH,URINE 6.5 (5.0-8.0); PROTEIN,URINE Negative (NEGATIVE)
[2020-11-02 15:07] LABS: HEMATOCRIT 33.4 % (36-48); MEAN CORPUSCULAR HEMOGLOBIN 28.7 pg (27.0-33.0); MEAN CORPUSCULAR HGB CONC 33.2 g/dL (32.0-36.0); MEAN CORPUSCULAR VOLUME 86.3 fL (79-99); PLATELET COUNT (AUTO) 357 K/uL (130-400); RED BLOOD CELL COUNT(AUTO) 3.87 MIL/uL (4.00-5.50); RED CELL DISTRIBUTION WIDTH 12.1 % (11.0-15.5); WHITE BLOOD COUNT (AUTO) 7.2 K/uL (4.8-10.8)
[2020-11-02 15:19] LABS: CREATININE 0.8 mg/dL (0.5-1.5)
[2020-11-02 15:30] LABS: BAND NEUTROPHILS % (MANUAL) 4 % (0-2); EOSINOPHILS % (MANUAL) 2 % (1-6); LYMPHOCYTES % (MANUAL) 15 % (22-44); MAN.DIFF COMMENT-IMPRESSION MANUAL DIFFERENTIAL; MONOCYTES % (MANUAL) 8 % (2-9); REACTIVE LYMPHOCYTES 6 % (0-0); SEGMENTED NEUTROPHILS % 65 % (40-70)
[2020-11-02 15:34] LABS: ALBUMIN 3.5 g/dL (3.5-5.0); BILIRUBIN,TOTAL 0.2 mg/dL (0.2-1.0); TOTAL PROTEIN, SERUM 6.8 g/dL (6.0-8.3)
== END 2020-11-02 16:23 | disposition home or self-care (01) ==
LOC: EDH 14:27
DX: D64.9 Anemia, unspecified (principal); R42 Dizziness and giddiness; E78.00 Pure hypercholesterolemia, unspecified; F41.9 Anxiety disorder, unspecified; F31.9 Bipolar disorder, unspecified; Z79.899 Other long term (current) drug therapy; Z90.49 Acquired absence of other specified parts of digestive tract; Z98.84 Bariatric surgery status; Z79.1 Long term (current) use of non-steroidal anti-inflammatories (NSAID)
CPT/HCPCS: 36415; 80053; 81003; 84484; 85025; 93005

== ENCOUNTER 2020-11-27 17:38 | Emergency (ER) | payer MEDICARE ==
[~2020-11-27] VITALS: Ht 165.1 cm; Wt 89.8 kg
[2020-11-27] MEDS ORDERED: SOLU-MEDROL 125MG VIAL IM ONE (19:30)
[2020-11-27] MEDS ORDERED: SOLU-MEDROL 125MG VIAL ONE (19:33)
[2020-11-27] MEDS ORDERED: CYCLOBENZAPRINE HCL 10 MG TABLET PO ONE (20:00)
[2020-11-27] MEDS ORDERED: CYCLOBENZAPRINE HCL 10 MG TABLET ONE (20:06)
[2020-11-27] MEDS ORDERED: METH4TAB3 PO (22:02)
[2020-11-27] MEDS ORDERED: CYCL10TA7 PO (22:04)
[2020-11-27 22:13] VITALS: BP 128/88
== END 2020-11-27 22:20 | disposition home or self-care (01) ==
LOC: EDH 17:38
DX: S39.012A Strain of muscle, fascia and tendon of lower back, initial encounter (principal); S70.02XA Contusion of left hip, initial encounter; S70.12XA Contusion of left thigh, initial encounter; F41.9 Anxiety disorder, unspecified; F31.9 Bipolar disorder, unspecified; E78.00 Pure hypercholesterolemia, unspecified; Z79.1 Long term (current) use of non-steroidal anti-inflammatories (NSAID); Z79.52 Long term (current) use of systemic steroids; Z79.899 Other long term (current) drug therapy; Z87.19 Personal history of other diseases of the digestive system; Z90.49 Acquired absence of other specified parts of digestive tract; Z98.84 Bariatric surgery status; W01.0XXA Fall on same level from slipping, tripping and stumbling without subsequent striking against object, initial encounter; Y93.89 Activity, other specified; Y92.89 Other specified places as the place of occurrence of the external cause; Y99.8 Other external cause status
CPT/HCPCS: 73502; 96372; J2930

== ENCOUNTER 2020-12-03 18:38 | Emergency (ER) | payer MEDICARE ==
[~2020-12-03] VITALS: Ht 165.1 cm; Wt 90.7 kg
[~2020-12-03 18:38] MED LIST changes: +CYCL10TA7 PO; +METH4TAB3 PO
[2020-12-03] MEDS ORDERED: BUPIVACAINE/PF 0.5% 30ML VIAL INJ ONE (19:00)
[2020-12-03] MEDS ORDERED: KETOROLAC 60 MG VIAL (30MG/ML) IM ONE (19:00)
[2020-12-03] MEDS ORDERED: HYDROCODONE/ACETAMINOPHEN 10/325 MG TAB PO ONE (19:00)
[2020-12-03] MEDS ORDERED: TRIAMCINOLONE ACETONIDE 40 MG/ML 1ML VIAL SQ ONE (19:00)
[2020-12-03] MEDS ORDERED: IBUP-1552 PO (20:32)
[2020-12-03] MEDS ORDERED: CYCL10 PO (20:32)
[2020-12-03 20:34] VITALS: BP 120/70
== END 2020-12-03 21:27 | disposition home or self-care (01) ==
LOC: EDH 18:38
DX: S39.013A Strain of muscle, fascia and tendon of pelvis, initial encounter (principal); M70.62 Trochanteric bursitis, left hip; E03.9 Hypothyroidism, unspecified; E66.9 Obesity, unspecified; E78.00 Pure hypercholesterolemia, unspecified; F31.9 Bipolar disorder, unspecified; F41.9 Anxiety disorder, unspecified; Z79.1 Long term (current) use of non-steroidal anti-inflammatories (NSAID); Z79.52 Long term (current) use of systemic steroids; Z79.899 Other long term (current) drug therapy; Z87.19 Personal history of other diseases of the digestive system; Z90.49 Acquired absence of other specified parts of digestive tract; W18.39XA Other fall on same level, initial encounter; Y93.89 Activity, other specified; Y92.89 Other specified places as the place of occurrence of the external cause; Y99.8 Other external cause status
CPT/HCPCS: 20610; 72192; 96372; 99284; J1885; J3301; J3490

== ENCOUNTER 2020-12-09 21:20 | Emergency (ER) | payer MEDICARE ==
[~2020-12-09] VITALS: Ht 165.1 cm; Wt 88.9 kg
[~2020-12-09 21:20] MED LIST changes: +CYCL10 PO; +IBUP-1552 PO
[2020-12-09 21:24] VITALS: BP 133/53
[2020-12-09 21:50] LABS: APPEARANCE,URINE Cloudy (CLEAR); BILIRUBIN,URINE Negative (NEGATIVE); COLOR,URINE Yellow (YELLOW); GLUCOSE, URINE (UA) Negative (NEGATIVE); KETONES,URINE Negative (NEGATIVE); LEUKOCYTE ESTERASE ,URINE Trace (NEGATIVE); NITRATE,URINE Negative (NEGATIVE); OCCULT BLOOD,URINE Negative (NEGATIVE); PROTEIN,URINE Negative (NEGATIVE)
[2020-12-09 21:56] LABS: AMORPHOUS SEDIMENT,UR Trace /LPF (None Seen); MUCUS,URINE Few LPF (None Seen)
[2020-12-09 22:01] LABS: BACTERIA,URINE Few /HPF (None Seen); YEAST,URINE BUDDING Rare /HPF (None Seen)
[2020-12-09] MEDS ORDERED: KETOROLAC 30MG VIAL (30MG/ML) IM ONE (22:30)
[2020-12-09] MEDS ORDERED: HYDROCODONE/ACETAMINOPHEN 5/325 MG TAB PO ONE (22:30)
[2020-12-09] MEDS ORDERED: CEPH500T PO (23:51)
[2020-12-09] MEDS ORDERED: PHEN-847 PO (23:51)
[2020-12-09] MEDS ORDERED: [UNRECOGNIZED DRUG - CODE] VG (23:51)
[2020-12-09] MEDS ORDERED: BISA10SU61 RC (23:51)
[2020-12-10] VITALS: BP 136/69
== END 2020-12-09 23:59 | disposition home or self-care (01) ==
LOC: EDH 21:20
DX: N39.0 Urinary tract infection, site not specified (principal); B37.3 Candidiasis of vulva and vagina; K59.00 Constipation, unspecified; E78.00 Pure hypercholesterolemia, unspecified; F31.9 Bipolar disorder, unspecified; F41.9 Anxiety disorder, unspecified; E66.9 Obesity, unspecified; Z79.1 Long term (current) use of non-steroidal anti-inflammatories (NSAID); Z79.52 Long term (current) use of systemic steroids; Z79.899 Other long term (current) drug therapy; Z87.19 Personal history of other diseases of the digestive system; Z90.49 Acquired absence of other specified parts of digestive tract; Z68.32 Body mass index [BMI] 32.0-32.9, adult
CPT/HCPCS: 74176; 81001; 81025; 96372; 99284; J1885

== ENCOUNTER 2020-12-30 21:02 | Emergency (ER) | payer MEDICARE ==
[~2020-12-30] VITALS: Ht 165.1 cm; Wt 90.3 kg
[~2020-12-30 21:02] MED LIST changes: +BISA10SU61 RC; +CEPH500T PO; -ESTR2TAB PO; +ESTR2TAB25 PO; +PHEN-847 PO; +[UNRECOGNIZED DRUG - CODE] VG
[2020-12-31 00:37] LABS: APPEARANCE,URINE Clear (CLEAR); BILIRUBIN,URINE Negative (NEGATIVE); COLOR,URINE Yellow (YELLOW); GLUCOSE, URINE (UA) Negative (NEGATIVE); KETONES,URINE Negative (NEGATIVE); LEUKOCYTE ESTERASE ,URINE Small (NEGATIVE); NITRATE,URINE Negative (NEGATIVE); OCCULT BLOOD,URINE Negative (NEGATIVE); PROTEIN,URINE Negative (NEGATIVE)
[2020-12-31 00:46] LABS: RBC,URINE 0-1 /HPF (0-1)
[2020-12-31 00:47] LABS: BACTERIA,URINE None Seen /HPF (None Seen); SQUAMOUS EPITHELIAL CELL,UR Few /HPF (0-2)
[2020-12-31] MEDS ORDERED: HYDROCODONE/ACETAMINOPHEN 5/325 MG TAB PO ONE (02:00)
[2020-12-31] MEDS ORDERED: KETOROLAC 60 MG VIAL (30MG/ML) IM ONE (02:00)
[2020-12-31] MEDS ORDERED: ORPHENADRINE CITRATE 30 MG/ML ML IM ONE (02:00)
[2020-12-31] MEDS ORDERED: ORPH-43 PO (03:10)
[2020-12-31] MEDS ORDERED: LIDOP TP (03:10)
[2020-12-31] MEDS ORDERED: MELO7.5T12 PO (03:10)
[2020-12-31 03:32] VITALS: BP 119/85
== END 2020-12-31 03:41 | disposition home or self-care (01) ==
LOC: EDH 21:02
DX: M54.50 Low back pain, unspecified (principal); M62.838 Other muscle spasm; R42 Dizziness and giddiness; F31.9 Bipolar disorder, unspecified; F41.9 Anxiety disorder, unspecified; Z79.1 Long term (current) use of non-steroidal anti-inflammatories (NSAID); Z79.52 Long term (current) use of systemic steroids; Z79.899 Other long term (current) drug therapy; Z90.49 Acquired absence of other specified parts of digestive tract
CPT/HCPCS: 72100; 81001; 96372 ×2; 99284; J1885; J2360

== ENCOUNTER 2021-01-25 02:12 | Emergency (ER) | payer MEDICARE ==
[~2021-01-25] VITALS: Ht 165.1 cm; Wt 90.7 kg
[~2021-01-25 02:12] MED LIST changes: +CYCL-309 PO; -CYCL10 PO; +CYCL10TA16 PO; -CYCL10TA7 PO; +LIDOP TP; +MELO7.5T12 PO; +ORPH-43 PO
[2021-01-25] MEDS ORDERED: MELO7.5T12 PO (02:55)
[2021-01-25] MEDS ORDERED: CYCL-309 PO (02:55)
[2021-01-25] MEDS ORDERED: LIDOP TP (02:56)
[2021-01-25] MEDS ORDERED: KETOROLAC 60 MG VIAL (30MG/ML) IM ONE (03:00)
[2021-01-25] MEDS ORDERED: ORPHENADRINE CITRATE 30 MG/ML ML IM ONE (03:00)
[2021-01-25 03:18] VITALS: BP 118/82
== END 2021-01-25 02:35 | disposition home or self-care (01) ==
LOC: EDH 02:12
DX: M62.830 Muscle spasm of back (principal); Z79.1 Long term (current) use of non-steroidal anti-inflammatories (NSAID); Z79.52 Long term (current) use of systemic steroids; Z79.899 Other long term (current) drug therapy; Z90.49 Acquired absence of other specified parts of digestive tract; Z98.84 Bariatric surgery status
CPT/HCPCS: 96372 ×2; 99284; J1885; J2360

== ENCOUNTER 2021-02-02 19:16 | Emergency (ER) | payer MEDICARE ==
[~2021-02-02] VITALS: Ht 165.1 cm; Wt 90.7 kg
[2021-02-02] MEDS ORDERED: MORPHINE 4 MG SYG IM ONE ×2 (20:00→22:00)
[2021-02-02] MEDS ORDERED: ACETAMINOPHEN 500 MG TABLET PO ONE (20:00)
[2021-02-02] MEDS ORDERED: MORPHINE 4 MG SYG ONE (21:44)
[2021-02-02] MEDS ORDERED: ACET1TAB25 PO (21:48)
[2021-02-02 22:10] VITALS: BP 117/78
== END 2021-02-02 22:20 | disposition home or self-care (01) ==
LOC: EDH 19:16
DX: S39.012A Strain of muscle, fascia and tendon of lower back, initial encounter (principal); M54.2 Cervicalgia; F41.9 Anxiety disorder, unspecified; F31.9 Bipolar disorder, unspecified; Z79.1 Long term (current) use of non-steroidal anti-inflammatories (NSAID); Z79.52 Long term (current) use of systemic steroids; Z98.1 Arthrodesis status; Z90.49 Acquired absence of other specified parts of digestive tract; Z79.899 Other long term (current) drug therapy; X58.XXXA Exposure to other specified factors, initial encounter; Y93.89 Activity, other specified; Y92.89 Other specified places as the place of occurrence of the external cause; Y99.8 Other external cause status
CPT/HCPCS: 72040; 72100; 96372 ×2; 99284; J2270 ×2

== ENCOUNTER → 2021-02-17 | Emergency (ER) | payer MEDICARE ==
[~2021-02-17] MED LIST changes: +ACET1TAB25 PO; +LACT10SO9 PO
== END | disposition left against medical advice (07) ==
LOC: EDH 22:16
DX: L29.9 Pruritus, unspecified (principal); Z53.21 Procedure and treatment not carried out due to patient leaving prior to being seen by health care provider

== ENCOUNTER 2021-03-02 19:29 | Emergency (ER) | payer MEDICARE ==
[~2021-03-02] VITALS: Ht 165.1 cm; Wt 90.7 kg
[~2021-03-02 19:29] MED LIST changes: -LACT10SO9 PO
[2021-03-02 21:28] LABS: BASOPHILS % (AUTO) 0.9 % (0.0-5.0); EOSINOPHILS % (AUTO) 4.9 % (0.0-8.0); HEMATOCRIT 33.8 % (36-48); LYMPHOCYTES % (AUTO) 37.3 % (21.0-51.0); MEAN CORPUSCULAR HGB CONC 32.5 g/dL (32.0-36.0); NEUTROPHILS % (AUTO) 48.6 % (40.0-77.0); PLATELET COUNT (AUTO) 314 K/uL (130-400); RED BLOOD CELL COUNT(AUTO) 3.93 MIL/uL (4.00-5.50); RED CELL DISTRIBUTION WIDTH 11.9 % (11.0-15.5); WHITE BLOOD COUNT (AUTO) 7.5 K/uL (4.8-10.8)
[2021-03-02] MEDS ORDERED: KETOROLAC 30MG VIAL (30MG/ML) IVP ONE (21:30)
[2021-03-02] MEDS ORDERED: ONDANSETRON 4MG INJ IVP ONE (21:30)
[2021-03-02] MEDS ORDERED: 0.9%NACL 1000ML 1,000 ML IV ONE (21:30)
[2021-03-02] MEDS ORDERED: MAG/ALUM/SIMETH 30 ML UDCUP PO ONE (21:30)
[2021-03-02 21:43] LABS: CREATININE 0.9 mg/dL (0.5-1.5); POTASSIUM 4.3 mmol/L (3.5-5.1)
[2021-03-02 21:47] LABS: ALBUMIN 3.6 g/dL (3.5-5.0); BILIRUBIN,TOTAL 0.1 mg/dL (0.2-1.0)
[2021-03-02] MEDS ORDERED: LACTULOSE 20 GM/30 ML UDCUP PR SCH (23:30)
[2021-03-02] MEDS ORDERED: LACT10SO9 PO (23:36)
[2021-03-02 23:53] VITALS: BP 127/89
== END 2021-03-02 23:53 | disposition home or self-care (01) ==
LOC: EDH 19:29
DX: K59.00 Constipation, unspecified (principal); E03.9 Hypothyroidism, unspecified; F41.9 Anxiety disorder, unspecified; F31.9 Bipolar disorder, unspecified; R11.2 Nausea with vomiting, unspecified; Z90.710 Acquired absence of both cervix and uterus; Z90.49 Acquired absence of other specified parts of digestive tract; Z79.899 Other long term (current) drug therapy
CPT/HCPCS: 36415; 74018; 80053; 81025; 83690; 85025; 96361; 96374; 96375; 99284; J1885; J2405; J7030

== ENCOUNTER 2021-05-06 05:26 | Emergency (ER) | payer MEDICARE ==
[~2021-05-06] VITALS: Ht 165.1 cm; Wt 86.2 kg
[~2021-05-06 05:26] MED LIST changes: +LACT10SO9 PO
[2021-05-06] MEDS ORDERED: OSEL75 PO (07:20)
[2021-05-06] MEDS ORDERED: FLUT16H NASAL (07:20)
[2021-05-06] MEDS ORDERED: ACET-66 PO (07:20)
[2021-05-06 07:47] VITALS: BP 132/74
== END 2021-05-06 07:48 | disposition home or self-care (01) ==
LOC: EDH 05:26
DX: J10.1 Influenza due to other identified influenza virus with other respiratory manifestations (principal); F41.9 Anxiety disorder, unspecified; F32.9 Major depressive disorder, single episode, unspecified; Z20.822 Contact with and (suspected) exposure to COVID-19; Z90.710 Acquired absence of both cervix and uterus; Z90.49 Acquired absence of other specified parts of digestive tract; Z98.890 Other specified postprocedural states; Z79.899 Other long term (current) drug therapy
CPT/HCPCS: 87635; 87804 ×2; 87880; 99283; C9803

== ENCOUNTER → 2021-05-26 | Outpatient (CLI) | payer MEDICARE ==
[~2021-05-26] MED LIST changes: +ACET-66 PO; +FLUT16H NASAL; +OSEL75 PO
== END | disposition home or self-care (01) ==
LOC: LAB 11:26
PROVIDERS: ATTEND Internal Medicine Gastroenterology
DX: K59.04 Chronic idiopathic constipation (principal)
CPT/HCPCS: 36415; 74018; 84443

== ENCOUNTER → 2021-06-19 | Outpatient (CLI) | payer MEDICARE ==
[~2021-06-19] MED LIST changes: +IOHEXOL-350 75 ML VIAL IV ONE
== END | disposition home or self-care (01) ==
LOC: RAH 10:24
PROVIDERS: ATTEND Anesthesiology
DX: M47.812 Spondylosis without myelopathy or radiculopathy, cervical region (principal); M48.02 Spinal stenosis, cervical region; Z98.890 Other specified postprocedural states
CPT/HCPCS: 72127; Q9967

== ENCOUNTER 2021-07-23 22:12 | Emergency (ER) | payer MEDICARE ==
[~2021-07-23] VITALS: Ht 165.1 cm; Wt 86.2 kg
[~2021-07-23 22:12] MED LIST changes: +ACET-2079 PO; -ACET1TAB25 PO; +BUPR-113 PO; -BUPR150T8 PO; -IOHEXOL-350 75 ML VIAL IV ONE
[2021-07-23 23:44] LABS: BILIRUBIN,URINE Negative (NEGATIVE); COLOR,URINE Yellow (YELLOW); GLUCOSE, URINE (UA) Negative (NEGATIVE); KETONES,URINE Negative (NEGATIVE); LEUKOCYTE ESTERASE ,URINE Moderate (NEGATIVE); NITRATE,URINE Negative (NEGATIVE); OCCULT BLOOD,URINE Negative (NEGATIVE); PH,URINE 6.5 (5.0-8.0); PROTEIN,URINE Negative (NEGATIVE)
[2021-07-23 23:45] LABS: APPEARANCE,URINE HAZY (CLEAR)
[2021-07-23 23:48] LABS: HCG,QUAL RESULT NEGATIVE (NEGATIVE)
[2021-07-23 23:57] LABS: BACTERIA,URINE Moderate /HPF (None Seen); MUCUS,URINE Rare LPF (None Seen); RBC,URINE 0-1 /HPF (0-1)
[2021-07-23 23:58] LABS: BASOPHILS % (AUTO) 0.9 % (0.0-5.0); EOSINOPHILS % (AUTO) 2.8 % (0.0-8.0); HEMATOCRIT 35.3 % (36-48); LYMPHOCYTES % (AUTO) 37.5 % (21.0-51.0); MEAN CORPUSCULAR HEMOGLOBIN 27.8 pg (27.0-33.0); MEAN CORPUSCULAR HGB CONC 32.9 g/dL (32.0-36.0); MEAN CORPUSCULAR VOLUME 84.7 fL (79-99); MONOCYTES % (AUTO) 7.9 % (3.0-13.0); NEUTROPHILS % (AUTO) 50.7 % (40.0-77.0); PLATELET COUNT (AUTO) 329 K/uL (130-400); RED BLOOD CELL COUNT(AUTO) 4.17 MIL/uL (4.00-5.50); RED CELL DISTRIBUTION WIDTH 12.3 % (11.0-15.5); WHITE BLOOD COUNT (AUTO) 8.2 K/uL (4.8-10.8)
[2021-07-24 00:15] LABS: CREATININE 0.7 mg/dL (0.5-1.5); POTASSIUM 4.1 mmol/L (3.5-5.1)
[2021-07-24 00:20] LABS: ALBUMIN 3.6 g/dL (3.5-5.0); BILIRUBIN,TOTAL 0.2 mg/dL (0.2-1.0); TOTAL PROTEIN, SERUM 7.2 g/dL (6.0-8.3)
[2021-07-24] MEDS ORDERED: HYOSCYAMINE SULFATE 0.125 MG TAB.SUBL SL SCH (00:30)
[2021-07-24] MEDS ORDERED: SUCRALFATE 1 GM TABLET PO SCH (00:30)
[2021-07-24] MEDS ORDERED: ONDANSETRON 4MG INJ IVP ONE (00:30)
[2021-07-24] MEDS ORDERED: FAMOTIDINE 20MG VIAL IV ONE (00:30)
[2021-07-24] MEDS ORDERED: KETOROLAC 30MG VIAL (30MG/ML) IVP ONE (02:30)
[2021-07-24] MEDS ORDERED: SUCR1TAB28 PO (02:59)
[2021-07-24 03:03] VITALS: BP 122/72
== END 2021-07-24 03:12 | disposition home or self-care (01) ==
LOC: EDH 22:12
DX: R10.13 Epigastric pain (principal); R79.89 Other specified abnormal findings of blood chemistry; R82.81 Pyuria; F32.9 Major depressive disorder, single episode, unspecified; F41.9 Anxiety disorder, unspecified; Z98.890 Other specified postprocedural states; Z79.899 Other long term (current) drug therapy
CPT/HCPCS: 36415; 74176; 80053; 81001; 81025; 85025; 87088; 96374; 96375; 99284; J1885; J2405; J3490

== ENCOUNTER 2021-10-21 21:03 | Emergency (ER) | payer OTHER, MEDICARE ==
[~2021-10-21] VITALS: Ht 165.1 cm; Wt 86.6 kg
[~2021-10-21 21:03] MED LIST changes: +SUCR1TAB28 PO
[2021-10-21] MEDS ORDERED: TETRACAINE HCL 0.5% 4 ML OPHTH SOLN ONE (21:12)
[2021-10-21] MEDS ORDERED: FLUORESCEIN SODIUM 1 STRIP STRIP ONE (21:13)
[2021-10-21 21:21] VITALS: BP 137/85
[2021-10-21] MEDS ORDERED: ACET-66 PO (21:25)
[2021-10-21] MEDS ORDERED: ERYT1OIN7 OP (21:25)
[2021-10-21] MEDS ORDERED: ERYT1OIN7 OS (21:29)
[2021-10-21] MEDS ORDERED: ACETAMINOPHEN 500 MG TABLET PO ONE (21:30)
[2021-10-21] MEDS ORDERED: ERYTHROMYCIN BASE 0.5% OPHTH OINT 1 GM TUBE OU SCH (21:30)
== END 2021-10-21 21:34 | disposition home or self-care (01) ==
LOC: EDH 21:03
DX: H10.9 Unspecified conjunctivitis (principal); F41.9 Anxiety disorder, unspecified; F32.A Depression, unspecified; Z98.890 Other specified postprocedural states; Z79.899 Other long term (current) drug therapy; Z90.49 Acquired absence of other specified parts of digestive tract

== ENCOUNTER 2022-02-17 07:22 | Emergency (ER) | payer OTHER, MEDICARE ==
[~2022-02-17] VITALS: Ht 165.1 cm; Wt 81.6 kg
[~2022-02-17 07:22] MED LIST changes: +ERYT1OIN7 OS
[2022-02-17] MEDS ORDERED: ACET1TAB97 PO (09:15)
[2022-02-17] MEDS ORDERED: KETOROLAC 60 MG VIAL (30MG/ML) IM ONE (09:30)
[2022-02-17] MEDS ORDERED: HYDROCODONE/ACETAMINOPHEN 5/325 MG TAB PO ONE (09:30)
[2022-02-17 09:45] VITALS: BP 112/74
== END 2022-02-17 09:45 | disposition home or self-care (01) ==
LOC: EDH 07:22
DX: M25.551 Pain in right hip (principal); F41.9 Anxiety disorder, unspecified; F32.9 Major depressive disorder, single episode, unspecified; Z90.49 Acquired absence of other specified parts of digestive tract; Z79.1 Long term (current) use of non-steroidal anti-inflammatories (NSAID); Z79.52 Long term (current) use of systemic steroids; Z90.710 Acquired absence of both cervix and uterus; Z79.899 Other long term (current) drug therapy
CPT/HCPCS: 99283; 96372; J1885

== ENCOUNTER 2022-03-16 18:37 | Emergency (ER) | payer OTHER, MEDICARE ==
[~2022-03-16] VITALS: Ht 165.1 cm; Wt 79.4 kg
[~2022-03-16 18:37] MED LIST changes: +ACET1TAB97 PO
[2022-03-16 18:50] VITALS: BP 141/88
[2022-03-16] MEDS ORDERED: IBUP-1493 PO (20:05)
[2022-03-16] MEDS ORDERED: PHEN118L19 PO (20:05)
[2022-03-16] MEDS ORDERED: IBUPROFEN 800 MG TAB PO ONE (20:30)
== END 2022-03-16 21:01 | disposition home or self-care (01) ==
LOC: EDH 18:37
DX: B34.9 Viral infection, unspecified (principal); M54.9 Dorsalgia, unspecified; Z79.899 Other long term (current) drug therapy
CPT/HCPCS: 99284; 87635; 87804 ×2; 93005 ×2; C9803

== ENCOUNTER → 2022-04-20 | Outpatient (CLI) | payer OTHER, MEDICARE ==
[~2022-04-20] MED LIST changes: -ACET-2079 PO; -ACET-66 PO; -ACET1TAB97 PO; -BISA10SU61 RC; -CEPH500B PO; -CEPH500T PO; -CYCL-309 PO; -CYCL10TA16 PO; -ERYT1OIN7 OS; -FLUT16H NASAL; -HYDR-4060 PO; +IBUP-1493 PO; -IBUP-1552 PO; -IBUP-2070 PO; -LACT10SO9 PO; -LIDOP TP; -MELO7.5T12 PO; -METH4TAB3 PO; -ORPH-43 PO; -OSEL75 PO; -PHEN-847 PO; +PHEN118L19 PO; -SUCR1TAB28 PO; -[UNRECOGNIZED DRUG - CODE] VG
== END | disposition home or self-care (01) ==
LOC: RAH 09:09
PROVIDERS: ATTEND Family Medicine
DX: M70.61 Trochanteric bursitis, right hip (principal)
CPT/HCPCS: 73721

== ENCOUNTER 2023-01-22 20:58 | Emergency (ER) | payer OTHER, MEDICARE ==
[~2023-01-22] VITALS: Ht 165.1 cm; Wt 74.8 kg
[2023-01-22] MEDS ORDERED: 0.9%NACL 1000ML 1,000 ML IV ONE ×2 (21:30→23:30)
[2023-01-22 22:05] LABS: BASOPHILS # (AUTO) 0.07 K/uL (0.00-0.20); BASOPHILS % (AUTO) 0.7 % (0.0-5.0); EOSINOPHILS # (AUTO) 0.13 K/uL (0.00-0.70); EOSINOPHILS % (AUTO) 1.4 % (0.0-8.0); HEMATOCRIT 32.5 % (36-48); IMMATURE GRANULOCYTE ABSOLUTE 0.05 K/uL (0-1); LYMPHOCYTES # (AUTO) 1.7 K/uL (1.0-4.8); LYMPHOCYTES % (AUTO) 18.4 % (21.0-51.0); MEAN CORPUSCULAR HEMOGLOBIN 24.3 pg (27.0-33.0); MEAN CORPUSCULAR HGB CONC 30.5 g/dL (32.0-36.0); MEAN CORPUSCULAR VOLUME 79.7 fL (79-99); MONOCYTES # (AUTO) 0.6 K/uL (0.1-1.0); MONOCYTES % (AUTO) 6.6 % (3.0-13.0); NEUTROPHILS # (AUTO) 6.8 K/uL (1.8-7.7); NEUTROPHILS % (AUTO) 72.4 % (40.0-77.0); PLATELET COUNT (AUTO) 381 K/uL (130-400); RED BLOOD CELL COUNT(AUTO) 4.08 MIL/uL (4.00-5.50); WHITE BLOOD COUNT (AUTO) 9.4 K/uL (4.8-10.8)
[2023-01-22] MEDS ORDERED: DIATR MEGLU/DIATRIZOATE SODIUM 30 ML BOTTLE ONE (22:05)
[2023-01-22] MEDS ORDERED: IOHEXOL-350 75 ML VIAL IV ONE (22:16)
[2023-01-22 22:25] LABS: CREATININE 0.7 mg/dL (0.5-1.5); POTASSIUM 3.8 mmol/L (3.5-5.1)
[2023-01-22 22:29] LABS: ALBUMIN 3.4 g/dL (3.5-5.0); BILIRUBIN,TOTAL 0.2 mg/dL (0.2-1.0)
[2023-01-22] MEDS ORDERED: KETOROLAC 30MG VIAL (30MG/ML) IVP ONE (22:30)
[2023-01-22] MEDS ORDERED: FAMOTIDINE 20MG VIAL IV ONE (22:30)
[2023-01-22] MEDS ORDERED: METOCLOPRAMIDE 10 MG/2 ML VIAL IVP ONE (22:30)
[2023-01-22] MEDS ORDERED: LACTULOSE 20 GM/30 ML UDCUP PO ONE (23:30)
[2023-01-23] MEDS ORDERED: LACT10SO9 PO (00:04)
[2023-01-23] MEDS ORDERED: [UNRECOGNIZED DRUG - OTHER] PO (00:04)
[2023-01-23 00:12] VITALS: BP 150/60; PULSE 80; RESP 18; O2SAT 98
== END 2023-01-23 01:13 | disposition home or self-care (01) ==
LOC: EDH 20:58
DX: K59.00 Constipation, unspecified (principal); R10.9 Unspecified abdominal pain; F41.9 Anxiety disorder, unspecified; F32.A Depression, unspecified; Z79.899 Other long term (current) drug therapy; Z98.890 Other specified postprocedural states; Z90.49 Acquired absence of other specified parts of digestive tract; Z90.710 Acquired absence of both cervix and uterus
CPT/HCPCS: 99285; 74178; 96374; 96375; 80053; 84703; 85025; 36415; 74018; J3490; J1885; J2765; Q9967; Q9963

== ENCOUNTER 2023-01-31 17:43 | Emergency (ER) | payer OTHER, MEDICARE ==
[~2023-01-31] VITALS: Ht 165.1 cm; Wt 81.2 kg
[~2023-01-31 17:43] MED LIST changes: +LACT10SO9 PO; +[UNRECOGNIZED DRUG - OTHER] PO
[2023-01-31 18:05] VITALS: BP 131/88; PULSE 104; RESP 16; O2SAT 100
[2023-01-31 18:37] LABS: SARS-CoV-2, RNA, NAAT NEGATIVE SARS CoV-2 (NEGATIVE)
[2023-01-31 18:43] LABS: INFLUENZA TYPE A Negative For Type A (NEGATIVE); INFLUENZA TYPE B Negative For Type B (NEGATIVE)
== END 2023-01-31 19:10 | disposition left against medical advice (07) ==
LOC: EDH 17:43
DX: R50.9 Fever, unspecified (principal); Z53.21 Procedure and treatment not carried out due to patient leaving prior to being seen by health care provider; Z20.822 Contact with and (suspected) exposure to COVID-19
CPT/HCPCS: 99281; 87635; 87804 ×2; C9803

== ENCOUNTER 2023-07-24 00:32 | Emergency (ER) | payer MEDICARE ==
[~2023-07-24] VITALS: Ht 152.4 cm; Wt 70.3 kg
[2023-07-24] MEDS: KETOROLAC 30MG VIAL (30MG/ML) IVP ONE (01:09)
[2023-07-24] MEDS: ONDANSETRON 4MG INJ IVP ONE (01:09)
[2023-07-24] MEDS: 0.9%NACL 1000ML 1,000 ML IV ONE (01:09)
[2023-07-24 01:10] LABS: BASOPHILS # (AUTO) 0.07 K/uL (0.00-0.20); BASOPHILS % (AUTO) 1.2 % (0.0-5.0); EOSINOPHILS % (AUTO) 3.5 % (0.0-8.0); HEMATOCRIT 34.6 % (36-48); IMMATURE GRANULOCYTE ABSOLUTE 0.01 K/uL (0-1); LYMPHOCYTES # (AUTO) 2.3 K/uL (1.0-4.8); LYMPHOCYTES % (AUTO) 39.8 % (21.0-51.0); MEAN CORPUSCULAR HEMOGLOBIN 25.5 pg (27.0-33.0); MEAN CORPUSCULAR HGB CONC 31.8 g/dL (32.0-36.0); MEAN CORPUSCULAR VOLUME 80.1 fL (79-99); MONOCYTES # (AUTO) 0.4 K/uL (0.1-1.0); MONOCYTES % (AUTO) 7.3 % (3.0-13.0); NEUTROPHILS # (AUTO) 2.7 K/uL (1.8-7.7); PLATELET COUNT (AUTO) 369 K/uL (130-400); RED BLOOD CELL COUNT(AUTO) 4.32 MIL/uL (4.00-5.50); RED CELL DISTRIBUTION WIDTH 17.5 % (11.0-15.5); WHITE BLOOD COUNT (AUTO) 5.7 K/uL (4.8-10.8)
[2023-07-24 01:18] LABS: APPEARANCE,URINE CLOUDY (CLEAR); BILIRUBIN,URINE NEGATIVE (NEGATIVE); COLOR,URINE YELLOW (YELLOW); GLUCOSE, URINE (UA) NEGATIVE (NEGATIVE); KETONES,URINE NEGATIVE (NEGATIVE); LEUKOCYTE ESTERASE ,URINE 500 Leu/uL (NEGATIVE); NITRATE,URINE NEGATIVE (NEGATIVE); OCCULT BLOOD,URINE NEGATIVE (NEGATIVE); PROTEIN,URINE 20 mg/dL (NEGATIVE)
[2023-07-24 01:21] LABS: CREATININE 0.8 mg/dL (0.5-1.0); POTASSIUM 3.5 mmol/L (3.5-5.1)
[2023-07-24 01:22] LABS: ADD UA MICROSCOPIC YES
[2023-07-24 01:25] LABS: ALBUMIN 3.8 g/dL (3.5-5.0); BILIRUBIN,TOTAL 0.3 mg/dL (0.2-1.0); TOTAL PROTEIN, SERUM 7.4 g/dL (6.0-8.3)
[2023-07-24 01:25] LABS: BACTERIA,URINE RARE /HPF (None Seen); MUCUS,URINE MANY LPF (None Seen); SQUAMOUS EPITHELIAL CELL,UR MANY /HPF (0-2); WBC,URINE 26-50 /HPF (0-1)
[2023-07-24] MEDS: CEFTRIAXONE 1G VIAL IVPB STA (02:10)
[2023-07-24] MEDS: MORPHINE 2 MG SYG IVP STA (02:42)
[2023-07-24] MEDS ORDERED: MACR100 PO (03:40)
[2023-07-24] MEDS ORDERED: ONDA22I SL (03:40)
[2023-07-24] MEDS ORDERED: ACET-541 PO (03:40)
[2023-07-24 04:06] VITALS: BP 126/82; PULSE 65; RESP 16; O2SAT 100
== END 2023-07-24 04:07 | disposition home or self-care (01) ==
LOC: EDH 00:32
DX: N39.0 Urinary tract infection, site not specified (principal); E11.9 Type 2 diabetes mellitus without complications; F31.9 Bipolar disorder, unspecified; F41.9 Anxiety disorder, unspecified; K76.0 Fatty (change of) liver, not elsewhere classified; Z79.899 Other long term (current) drug therapy; Z90.49 Acquired absence of other specified parts of digestive tract; Z90.710 Acquired absence of both cervix and uterus; Z98.890 Other specified postprocedural states
CPT/HCPCS: 99285; 74176; 96374; 96375; 80053; 83690; 85025; 87088; 81001; 36415; J2270; J7030; J0696; J2405; J1885

== ENCOUNTER 2023-08-06 17:49 | Emergency (ER) | payer MEDICARE ==
[~2023-08-06] VITALS: Ht 165.1 cm; Wt 65.8 kg
[~2023-08-06 17:49] MED LIST changes: +ACET-541 PO; +MACR100 PO; +ONDA22I SL
[2023-08-06] MEDS: 0.9%NACL 1000ML 1,000 ML IV ONE (18:13)
[2023-08-06] MEDS: ONDANSETRON 4MG INJ IVP ONE (18:13)
[2023-08-06] MEDS: FAMOTIDINE 20MG VIAL IV ONE (18:13)
[2023-08-06] MEDS: MORPHINE 2 MG SYG IVP ONE (18:13)
[2023-08-06 18:15] LABS: BASOPHILS # (AUTO) 0.05 K/uL (0.00-0.20); BASOPHILS % (AUTO) 0.7 % (0.0-5.0); EOSINOPHILS # (AUTO) 0.06 K/uL (0.00-0.70); EOSINOPHILS % (AUTO) 0.8 % (0.0-8.0); HEMATOCRIT 33.8 % (36-48); IMMATURE GRANULOCYTE ABSOLUTE 0.02 K/uL (0-1); LYMPHOCYTES # (AUTO) 1.1 K/uL (1.0-4.8); LYMPHOCYTES % (AUTO) 14.6 % (21.0-51.0); MEAN CORPUSCULAR HEMOGLOBIN 25.9 pg (27.0-33.0); MEAN CORPUSCULAR HGB CONC 31.1 g/dL (32.0-36.0); MEAN CORPUSCULAR VOLUME 83.3 fL (79-99); MONOCYTES # (AUTO) 0.6 K/uL (0.1-1.0); MONOCYTES % (AUTO) 7.3 % (3.0-13.0); NEUTROPHILS # (AUTO) 5.8 K/uL (1.8-7.7); NEUTROPHILS % (AUTO) 76.3 % (40.0-77.0); PLATELET COUNT (AUTO) 223 K/uL (130-400); RED BLOOD CELL COUNT(AUTO) 4.06 MIL/uL (4.00-5.50); RED CELL DISTRIBUTION WIDTH 17.1 % (11.0-15.5); WHITE BLOOD COUNT (AUTO) 7.6 K/uL (4.8-10.8)
[2023-08-06 18:23] LABS: POTASSIUM 3.5 mmol/L (3.5-5.1)
[2023-08-06 18:28] LABS: ALBUMIN 3.3 g/dL (3.5-5.0); BILIRUBIN,TOTAL 0.3 mg/dL (0.2-1.0); TOTAL PROTEIN, SERUM 6.7 g/dL (6.0-8.3)
[2023-08-06 18:45] LABS: APPEARANCE,URINE CLOUDY (CLEAR); BILIRUBIN,URINE NEGATIVE (NEGATIVE); COLOR,URINE YELLOW (YELLOW); GLUCOSE, URINE (UA) NEGATIVE (NEGATIVE); KETONES,URINE 5 mg/dL (NEGATIVE); LEUKOCYTE ESTERASE ,URINE MODERATE Leu/uL (NEGATIVE); NITRATE,URINE NEGATIVE (NEGATIVE); OCCULT BLOOD,URINE SMALL (NEGATIVE); PH,URINE 5.5 (5.0-8.0); PROTEIN,URINE 30 mg/dL (NEGATIVE); UROBILINOGEN,URINE 0.2 mg/dL (0.2-1.0)
[2023-08-06] MEDS ORDERED: IOHEXOL-350 75 ML VIAL IV ONE (18:50)
[2023-08-06 18:55] LABS: ADD UA MICROSCOPIC YES
[2023-08-06 19:00] LABS: BACTERIA,URINE MOD /HPF (None Seen); MUCUS,URINE RARE LPF (None Seen); NON-SQUAMOUS EPITHELIAL CELL 8 /HPF (0-2); OTHER CASTS, URINE 40 /LPF (None Seen); SQUAMOUS EPITHELIAL CELL,UR FEW /HPF (0-2); UNCLASSIFIED CRYSTAL 8 /HPF (None Seen); WBC CLUMP RARE /HPF (0-1); YEAST,URINE BUDDING RARE /HPF (None Seen)
[2023-08-06] MEDS: CEFTRIAXONE 1G VIAL IM ONE (19:49)
[2023-08-06] MEDS: METOCLOPRAMIDE 10 MG/2 ML VIAL IVP ONE (19:52)
[2023-08-06] MEDS: MORPHINE 4 MG SYG IVP ONE (19:56)
[2023-08-06] MEDS ORDERED: DICY20TA2 PO (20:42)
[2023-08-06] MEDS ORDERED: ONDA4TAB10 PO (20:42)
[2023-08-06] MEDS ORDERED: NITR100C PO (20:42)
[2023-08-06 21:09] VITALS: BP 108/69; PULSE 78; RESP 20; O2SAT 100
== END 2023-08-06 21:17 | disposition home or self-care (01) ==
LOC: EDH 17:49
DX: A08.4 Viral intestinal infection, unspecified (principal); N39.0 Urinary tract infection, site not specified; R11.2 Nausea with vomiting, unspecified; R19.7 Diarrhea, unspecified; Z98.84 Bariatric surgery status
CPT/HCPCS: 99285; 74177; 96374; 96375; 96361; 80053; 83690; 85025; 87088; 81001; 36415; 96372; J3490; J2270 ×2; J7030; J0696; J2405; J2765; Q9967

== ENCOUNTER 2023-09-01 12:19 | Emergency (ER) | payer MEDICARE ==
[~2023-09-01] VITALS: Ht 165.1 cm; Wt 63.5 kg
[~2023-09-01 12:19] MED LIST changes: +DICY20TA2 PO; +NITR100C PO; +ONDA-243 PO
[2023-09-01] MEDS: 0.9%NACL 1000ML 1,000 ML IV ONE (13:13)
[2023-09-01] MEDS: FAMOTIDINE 20MG VIAL IV ONE (13:13)
[2023-09-01] MEDS: KETOROLAC 30MG VIAL (30MG/ML) IVP ONE (13:13)
[2023-09-01 13:22] LABS: BASOPHILS # (AUTO) 0.03 K/uL (0.00-0.20); BASOPHILS % (AUTO) 0.8 % (0.0-5.0); EOSINOPHILS # (AUTO) 0.12 K/uL (0.00-0.70); EOSINOPHILS % (AUTO) 3.4 % (0.0-8.0); HEMATOCRIT 29.3 % (36-48); IMMATURE GRANULOCYTE ABSOLUTE 0.01 K/uL (0-1); LYMPHOCYTES # (AUTO) 1.4 K/uL (1.0-4.8); LYMPHOCYTES % (AUTO) 39.8 % (21.0-51.0); MEAN CORPUSCULAR HEMOGLOBIN 26.3 pg (27.0-33.0); MEAN CORPUSCULAR HGB CONC 31.7 g/dL (32.0-36.0); MEAN CORPUSCULAR VOLUME 82.8 fL (79-99); MONOCYTES # (AUTO) 0.4 K/uL (0.1-1.0); MONOCYTES % (AUTO) 10.2 % (3.0-13.0); NEUTROPHILS # (AUTO) 1.6 K/uL (1.8-7.7); NEUTROPHILS % (AUTO) 45.5 % (40.0-77.0); PLATELET COUNT (AUTO) 257 K/uL (130-400); RED BLOOD CELL COUNT(AUTO) 3.54 MIL/uL (4.00-5.50); WHITE BLOOD COUNT (AUTO) 3.5 K/uL (4.8-10.8)
[2023-09-01 13:25] LABS: APPEARANCE,URINE CLOUDY (CLEAR); BILIRUBIN,URINE NEGATIVE (NEGATIVE); COLOR,URINE LIGHT-YELLOW (YELLOW); GLUCOSE, URINE (UA) NEGATIVE (NEGATIVE); KETONES,URINE NEGATIVE (NEGATIVE); LEUKOCYTE ESTERASE ,URINE 500 Leu/uL (NEGATIVE); NITRATE,URINE NEGATIVE (NEGATIVE); OCCULT BLOOD,URINE NEGATIVE (NEGATIVE); PH,URINE 6.5 (5.0-8.0); PROTEIN,URINE 10 mg/dL (NEGATIVE); UROBILINOGEN,URINE 0.2 mg/dL (0.2-1.0)
[2023-09-01 13:30] LABS: CREATININE 0.7 mg/dL (0.5-1.0); POTASSIUM 3.9 mmol/L (3.5-5.1)
[2023-09-01 13:35] LABS: ALBUMIN 3.1 g/dL (3.5-5.0); BILIRUBIN,TOTAL 0.3 mg/dL (0.2-1.0); TOTAL PROTEIN, SERUM 6.1 g/dL (6.0-8.3)
[2023-09-01 13:36] LABS: ADD UA MICROSCOPIC YES
[2023-09-01] MEDS: LIDOCAINE HCL 2% VISCOUS 15 ML UDCUP PO ONE (14:15)
[2023-09-01] MEDS: CEFTRIAXONE 1G VIAL IVPB ONE (14:15)
[2023-09-01] MEDS: DICYCLOMINE HCL 10 MG/5 ML ML PO ONE (14:15)
[2023-09-01] MEDS: MAG/ALUM/SIMETH 30 ML UDCUP PO ONE (14:15)
[2023-09-01 14:19] LABS: BACTERIA,URINE RARE /HPF (None Seen); CALCIUM OXALATE CRYSTALS,UR FEW /LPF (None Seen); MUCUS,URINE FEW LPF (None Seen); NON-SQUAMOUS EPITHELIAL CELL 1 /HPF (0-2); SQUAMOUS EPITHELIAL CELL,UR MANY /HPF (0-2); UNCLASSIFIED CRYSTAL <1 /HPF (None Seen)
[2023-09-01] MEDS ORDERED: AMOX1TAB16 PO (14:39)
[2023-09-01] MEDS ORDERED: SUCR1TAB PO (14:39)
[2023-09-01] MEDS: MORPHINE 2 MG SYG IVP ONE (15:00)
[2023-09-01 15:30] VITALS: BP 110/68; PULSE 80; RESP 18; O2SAT 98
== END 2023-09-01 15:49 | disposition home or self-care (01) ==
LOC: EDH 12:19
DX: K29.00 Acute gastritis without bleeding (principal); N39.0 Urinary tract infection, site not specified; E11.9 Type 2 diabetes mellitus without complications; F41.9 Anxiety disorder, unspecified; F32.A Depression, unspecified; Z79.899 Other long term (current) drug therapy; Z90.49 Acquired absence of other specified parts of digestive tract; Z90.710 Acquired absence of both cervix and uterus; Z98.890 Other specified postprocedural states
CPT/HCPCS: 99284; 96365; 96375; 80053; 83690; 85025; 87088; 81001; 36415; J3490; J2270; J7030; J0696; J1885

== ENCOUNTER 2023-09-18 00:28 | Emergency (ER) | payer MEDICARE ==
[~2023-09-18] VITALS: Ht 165.1 cm; Wt 63.5 kg
[~2023-09-18 00:28] MED LIST changes: +AMOX1TAB16 PO; +SUCR1TAB PO
[2023-09-18 01:03] LABS: BILIRUBIN,URINE NEGATIVE (NEGATIVE); COLOR,URINE YELLOW (YELLOW); GLUCOSE, URINE (UA) NEGATIVE (NEGATIVE); KETONES,URINE NEGATIVE (NEGATIVE); LEUKOCYTE ESTERASE ,URINE 500 Leu/uL (NEGATIVE); NITRATE,URINE NEGATIVE (NEGATIVE); OCCULT BLOOD,URINE SMALL (NEGATIVE); PH,URINE 5.5 (5.0-8.0); PROTEIN,URINE 30 mg/dL (NEGATIVE); UROBILINOGEN,URINE 0.2 mg/dL (0.2-1.0)
[2023-09-18 01:05] LABS: BASOPHILS # (AUTO) 0.04 K/uL (0.00-0.20); BASOPHILS % (AUTO) 0.9 % (0.0-5.0); EOSINOPHILS # (AUTO) 0.16 K/uL (0.00-0.70); EOSINOPHILS % (AUTO) 3.6 % (0.0-8.0); HEMATOCRIT 32.3 % (36-48); IMMATURE GRANULOCYTE ABSOLUTE 0.01 K/uL (0-1); LYMPHOCYTES # (AUTO) 1.7 K/uL (1.0-4.8); LYMPHOCYTES % (AUTO) 37.5 % (21.0-51.0); MEAN CORPUSCULAR HEMOGLOBIN 26.2 pg (27.0-33.0); MEAN CORPUSCULAR VOLUME 84.6 fL (79-99); MONOCYTES # (AUTO) 0.3 K/uL (0.1-1.0); MONOCYTES % (AUTO) 7.7 % (3.0-13.0); NEUTROPHILS # (AUTO) 2.2 K/uL (1.8-7.7); NEUTROPHILS % (AUTO) 50.1 % (40.0-77.0); PLATELET COUNT (AUTO) 312 K/uL (130-400); RED BLOOD CELL COUNT(AUTO) 3.82 MIL/uL (4.00-5.50); RED CELL DISTRIBUTION WIDTH 13.3 % (11.0-15.5); WHITE BLOOD COUNT (AUTO) 4.4 K/uL (4.8-10.8)
[2023-09-18 01:21] LABS: CREATININE 0.7 mg/dL (0.5-1.0); POTASSIUM 3.8 mmol/L (3.5-5.1)
[2023-09-18 01:24] LABS: ADD UA MICROSCOPIC YES; APPEARANCE,URINE CLOUDY (CLEAR)
[2023-09-18 01:25] LABS: ALBUMIN 3.7 g/dL (3.5-5.0); BILIRUBIN,TOTAL 0.3 mg/dL (0.2-1.0); TOTAL PROTEIN, SERUM 7.2 g/dL (6.0-8.3)
[2023-09-18 01:26] LABS: MUCUS,URINE RARE LPF (None Seen); RBC,URINE 26-50 /HPF (0-1); SQUAMOUS EPITHELIAL CELL,UR MANY /HPF (0-2); WBC CLUMP FEW /HPF (0-1); WBC,URINE TNTC /HPF (0-1)
[2023-09-18] MEDS ORDERED: IOHEXOL-350 75 ML VIAL IV ONE (01:34)
[2023-09-18 02:03] LABS: AMPHET/METH SCREEN,URINE NEGATIVE (NEGATIVE); BARBITURATE SCREEN, URINE NEGATIVE (NEGATIVE); BENZODIAZEPINES SCREEN,URINE NEGATIVE (NEGATIVE); CANNABINOID SCREEN,URINE NEGATIVE (NEGATIVE); COCAINE SCREEN,URINE NEGATIVE (NEGATIVE); OPIATE SCREEN,URINE POSITIVE (NEGATIVE); PHENCYCLIDINE SCREEN,URINE NEGATIVE (NEGATIVE)
[2023-09-18] MEDS: MORPHINE 2 MG SYG IVP STA (02:11)
[2023-09-18] MEDS: CEFTRIAXONE 1G VIAL IVPB STA (02:11)
[2023-09-18] MEDS: ONDANSETRON 4MG INJ IVP STA (02:11)
[2023-09-18] MEDS: ACETAMINOPHEN 500 MG TABLET ONE (03:07)
[2023-09-18] MEDS: ACETAMINOPHEN 500 MG TABLET PO STA (03:07)
[2023-09-18 03:28] VITALS: BP 107/66; PULSE 78; RESP 16; O2SAT 99
[2023-09-18] MEDS ORDERED: CEPH500B PO (03:28)
== END 2023-09-18 03:36 | disposition home or self-care (01) ==
LOC: EDH 00:28
DX: N39.0 Urinary tract infection, site not specified (principal); E11.9 Type 2 diabetes mellitus without complications; F31.9 Bipolar disorder, unspecified; F41.9 Anxiety disorder, unspecified; N20.0 Calculus of kidney; Z79.899 Other long term (current) drug therapy; Z90.49 Acquired absence of other specified parts of digestive tract; Z90.710 Acquired absence of both cervix and uterus; Z98.890 Other specified postprocedural states
CPT/HCPCS: 99285; 74176; 96374; 96375 ×2; 80053; 80305; 83690; 85025; 87086; 36415; 81001; J2270; J0696; J2405; Q9967

== ENCOUNTER 2023-10-01 11:52 | Emergency (ER) | payer MEDICARE ==
[~2023-10-01] VITALS: Ht 165.1 cm; Wt 63.5 kg
[~2023-10-01 11:52] MED LIST changes: +CEPH500B PO; +IBUP-2070 PO; +PHEN-846 PO
[2023-10-01] MEDS: ONDANSETRON 4MG INJ IVP ONE (13:04)
[2023-10-01] MEDS: PANTOPRAZOLE 40 MG/VIAL IVP ONE (13:04)
[2023-10-01] MEDS: 0.9% NACL 500ML IV.SOLN 500 ML IV ONE (13:04)
[2023-10-01 13:06] LABS: BASOPHILS # (AUTO) 0.03 K/uL (0.00-0.20); BASOPHILS % (AUTO) 0.4 % (0.0-5.0); EOSINOPHILS # (AUTO) 0.01 K/uL (0.00-0.70); EOSINOPHILS % (AUTO) 0.1 % (0.0-8.0); HEMATOCRIT 31.7 % (36-48); IMMATURE GRANULOCYTE ABSOLUTE 0.03 K/uL (0-1); LYMPHOCYTES # (AUTO) 0.4 K/uL (1.0-4.8); LYMPHOCYTES % (AUTO) 4.5 % (21.0-51.0); MEAN CORPUSCULAR HGB CONC 32.5 g/dL (32.0-36.0); MONOCYTES # (AUTO) 0.7 K/uL (0.1-1.0); MONOCYTES % (AUTO) 8.3 % (3.0-13.0); NEUTROPHILS # (AUTO) 6.7 K/uL (1.8-7.7); NEUTROPHILS % (AUTO) 86.3 % (40.0-77.0); PLATELET COUNT (AUTO) 280 K/uL (130-400); RED BLOOD CELL COUNT(AUTO) 3.82 MIL/uL (4.00-5.50); RED CELL DISTRIBUTION WIDTH 14.2 % (11.0-15.5); WHITE BLOOD COUNT (AUTO) 7.8 K/uL (4.8-10.8)
[2023-10-01 13:28] LABS: ALBUMIN 3.4 g/dL (3.5-5.0); BILIRUBIN,TOTAL 0.4 mg/dL (0.2-1.0); CREATININE 0.6 mg/dL (0.5-1.0); POTASSIUM 3.2 mmol/L (3.5-5.1); TOTAL PROTEIN, SERUM 6.2 g/dL (6.0-8.3)
[2023-10-01] MEDS: MORPHINE 2 MG SYG IVP ONE ×2 (13:52→15:08)
[2023-10-01 15:34] VITALS: BP 124/65; PULSE 74; RESP 14; O2SAT 98
== END 2023-10-01 15:45 | disposition home or self-care (01) ==
LOC: EDH 11:52
DX: R10.13 Epigastric pain (principal); R11.10 Vomiting, unspecified; F41.9 Anxiety disorder, unspecified; F31.9 Bipolar disorder, unspecified; E03.9 Hypothyroidism, unspecified; Z98.84 Bariatric surgery status; Z90.710 Acquired absence of both cervix and uterus; Z79.899 Other long term (current) drug therapy; Z79.2 Long term (current) use of antibiotics
CPT/HCPCS: 99284; 80053; 83690; 85025; 83605; 36415; 96374; 96375; 96376; J7040; J2270 ×2; J2405; J2470

== ENCOUNTER 2023-11-10 18:19 | Emergency (ER) | payer MEDICARE ==
[~2023-11-10] VITALS: Ht 165.1 cm; Wt 59.0 kg
[2023-11-10 19:52] LABS: BASOPHILS # (AUTO) 0.05 K/uL (0.00-0.20); BASOPHILS % (AUTO) 0.6 % (0.0-5.0); EOSINOPHILS # (AUTO) 0.07 K/uL (0.00-0.70); EOSINOPHILS % (AUTO) 0.9 % (0.0-8.0); HEMATOCRIT 33.5 % (36-48); IMMATURE GRANULOCYTE ABSOLUTE 0.03 K/uL (0-1); LYMPHOCYTES # (AUTO) 1.6 K/uL (1.0-4.8); LYMPHOCYTES % (AUTO) 20.5 % (21.0-51.0); MEAN CORPUSCULAR HEMOGLOBIN 28.2 pg (27.0-33.0); MEAN CORPUSCULAR HGB CONC 32.2 g/dL (32.0-36.0); MEAN CORPUSCULAR VOLUME 87.5 fL (79-99); MONOCYTES # (AUTO) 0.6 K/uL (0.1-1.0); NEUTROPHILS # (AUTO) 5.5 K/uL (1.8-7.7); NEUTROPHILS % (AUTO) 69.6 % (40.0-77.0); PLATELET COUNT (AUTO) 333 K/uL (130-400); RED BLOOD CELL COUNT(AUTO) 3.83 MIL/uL (4.00-5.50); RED CELL DISTRIBUTION WIDTH 15.7 % (11.0-15.5)
[2023-11-10 20:05] LABS: CREATININE 0.7 mg/dL (0.5-1.0); POTASSIUM 3.7 mmol/L (3.5-5.1)
[2023-11-10 20:09] LABS: ALBUMIN 3.1 g/dL (3.5-5.0); BILIRUBIN,DIRECT 0.1 mg/dL (0.0-0.3); BILIRUBIN,TOTAL 0.3 mg/dL (0.2-1.0); TOTAL PROTEIN, SERUM 5.9 g/dL (6.0-8.3)
[2023-11-10 22:00] LABS: APPEARANCE,URINE TURBID (CLEAR); BILIRUBIN,URINE NEGATIVE (NEGATIVE); COLOR,URINE YELLOW (YELLOW); GLUCOSE, URINE (UA) NEGATIVE (NEGATIVE); KETONES,URINE NEGATIVE (NEGATIVE); LEUKOCYTE ESTERASE ,URINE 500 Leu/uL (NEGATIVE); NITRATE,URINE 2+ (NEGATIVE); OCCULT BLOOD,URINE MODERATE (NEGATIVE); PH,URINE 6.5 (5.0-8.0); PROTEIN,URINE 70 mg/dL (NEGATIVE); UROBILINOGEN,URINE 0.2 mg/dL (0.2-1.0)
[2023-11-10 22:01] LABS: HCG,QUALITATIVE URINE NEGATIVE (NEGATIVE)
[2023-11-10 22:02] LABS: ADD UA MICROSCOPIC YES
[2023-11-10 22:05] LABS: MUCUS,URINE MANY LPF (None Seen); RBC,URINE 26-50 /HPF (0-1); RENAL EPITHELIAL CELLS,URINE RARE /HPF (None Seen); SQUAMOUS EPITHELIAL CELL,UR FEW /HPF (0-2); WBC CLUMP MANY /HPF (0-1); WBC,URINE TNTC /HPF (0-1)
[2023-11-10] MEDS ORDERED: IOHEXOL 350 MG/ML 100ML INFUS..BTL IV ONE (22:27)
[2023-11-10] MEDS: 0.9%NACL 1000ML 1,000 ML IV ONE (23:34)
[2023-11-10] MEDS: ONDANSETRON 4MG INJ IVP ONE (23:34)
[2023-11-10] MEDS: cefTRIAXone 1G VIAL IVPB ONE (23:34)
[2023-11-10] MEDS: MORPHINE 4 MG SYG IVP ONE (23:34)
[2023-11-11] MEDS: acetaMINOPHEN 325 MG TAB PO ONE (00:24)
[2023-11-11 01:05] LABS: INFLUENZA TYPE A Negative For Type A (NEGATIVE); INFLUENZA TYPE B Negative For Type B (NEGATIVE)
[2023-11-11 01:07] LABS: COVID19 (SARS ANTIGEN RAPID) PRESUMPTIVE NEGATIVE (NEGATIVE)
[2023-11-11] MEDS ORDERED: LEVO250T75 PO (01:10)
[2023-11-11] MEDS: MORPHINE 2 MG SYG IVP ONE (01:19)
[2023-11-11 01:33] VITALS: BP 127/75; PULSE 62; RESP 16; O2SAT 99
== END 2023-11-11 01:39 | disposition home or self-care (01) ==
LOC: EDH 18:19
DX: K52.9 Noninfective gastroenteritis and colitis, unspecified (principal); N39.0 Urinary tract infection, site not specified; R53.1 Weakness; F41.9 Anxiety disorder, unspecified; F31.9 Bipolar disorder, unspecified; E03.9 Hypothyroidism, unspecified; Z79.899 Other long term (current) drug therapy; Z98.84 Bariatric surgery status; Z20.822 Contact with and (suspected) exposure to COVID-19
CPT/HCPCS: 99285; 74177; 96365; 96375; 71045; 87426; 82550; 80076; 84484; 80048; 84703; 83690; 85025; 87086 ×2; 87186; 87804 ×2; 81001; 81025; 36415; 93005; 96376; J7030; J0696; J2405; J2270 ×2; Q9967

== ENCOUNTER 2023-11-14 18:09 | Emergency (ER) | payer MEDICARE ==
[~2023-11-14] VITALS: Ht 165.1 cm; Wt 59.0 kg
[~2023-11-14 18:09] MED LIST changes: +LEVO250T75 PO
[2023-11-14 18:51] LABS: BASOPHILS # (AUTO) 0.03 K/uL (0.00-0.20); BASOPHILS % (AUTO) 0.8 % (0.0-5.0); EOSINOPHILS # (AUTO) 0.13 K/uL (0.00-0.70); EOSINOPHILS % (AUTO) 3.4 % (0.0-8.0); HEMATOCRIT 33.8 % (36-48); IMMATURE GRANULOCYTE ABSOLUTE 0.02 K/uL (0-1); LYMPHOCYTES # (AUTO) 1.4 K/uL (1.0-4.8); LYMPHOCYTES % (AUTO) 36.1 % (21.0-51.0); MEAN CORPUSCULAR HEMOGLOBIN 28.5 pg (27.0-33.0); MEAN CORPUSCULAR HGB CONC 31.1 g/dL (32.0-36.0); MEAN CORPUSCULAR VOLUME 91.8 fL (79-99); MONOCYTES # (AUTO) 0.3 K/uL (0.1-1.0); MONOCYTES % (AUTO) 8.5 % (3.0-13.0); NEUTROPHILS # (AUTO) 1.9 K/uL (1.8-7.7); NEUTROPHILS % (AUTO) 50.7 % (40.0-77.0); PLATELET COUNT (AUTO) 253 K/uL (130-400); RED BLOOD CELL COUNT(AUTO) 3.68 MIL/uL (4.00-5.50); RED CELL DISTRIBUTION WIDTH 15.6 % (11.0-15.5); WHITE BLOOD COUNT (AUTO) 3.8 K/uL (4.8-10.8)
[2023-11-14 19:03] LABS: CREATININE 0.6 mg/dL (0.5-1.0); POTASSIUM 3.8 mmol/L (3.5-5.1)
[2023-11-14 19:12] LABS: ALBUMIN 3.1 g/dL (3.5-5.0); BILIRUBIN,TOTAL 0.2 mg/dL (0.2-1.0); TOTAL PROTEIN, SERUM 6.1 g/dL (6.0-8.3)
[2023-11-14 19:34] LABS: PROTHROMBIN TIME 10.8 SEC (9.6-11.6)
[2023-11-14 19:35] LABS: PARTIAL THROMBOPLASTIN TIME 24.8 SEC (26.3-35.5)
[2023-11-14 19:50] VITALS: BP 114/78; PULSE 49; RESP 14; O2SAT 100
[2023-11-14] MEDS: ONDANSETRON 4MG INJ IVP ONE (20:23)
[2023-11-14] MEDS: MORPHINE 2 MG SYG IVP ONE (20:24)
== END 2023-11-14 21:46 | disposition home or self-care (01) ==
LOC: EDH 18:09
DX: M79.602 Pain in left arm (principal); F41.9 Anxiety disorder, unspecified; F32.A Depression, unspecified; E03.9 Hypothyroidism, unspecified; Z79.899 Other long term (current) drug therapy; Z98.890 Other specified postprocedural states
CPT/HCPCS: 99285; 96374; 70450; 71045; 96375; 84484; 80053; 85025; 85610; 85730; 36415; 93005; J2270; J2405

== ENCOUNTER 2023-12-25 19:38 | Emergency (ER) | payer MEDICARE ==
[~2023-12-25] VITALS: Ht 165.1 cm; Wt 59.0 kg
[~2023-12-25 19:38] MED LIST changes: -ACET-541 PO; -AMOX1TAB16 PO; +BENZ1TAB83 PO; -BUPR-113 PO; -BUSP10TA3 PO; +BUSP15TA3 PO; -CEPH500B PO; -DICY20TA2 PO; +DOCU100C33 PO; -ERGO500093 PO; -ESCI-8 PO; -ESTR2TAB25 PO; +FAMO20TA8 PO; +FLUO20CA30 PO; +GABA300C PO; +HYDR-4060 PO; -IBUP-1493 PO; -IBUP-2070 PO; -ISOS10TA8 PO; -LACT10SO9 PO; -LEVO250T75 PO; +LEVO25TA54 PO; -LINA145C PO; +LINA290C PO; -MACR100 PO; -NITR100C PO; +OMEP40CA21 PO; -ONDA-243 PO; -ONDA22I SL; -PHEN-846 PO; -PHEN118L19 PO; -PRAV80TA21 PO; -SUCR1TAB PO; +SUCR1TAB2 PO; -[UNRECOGNIZED DRUG - OTHER] PO
[2023-12-25] MEDS: PANTOPrazole 40 MG/VIAL IVP ONE (20:18)
[2023-12-25] MEDS: ondanSETRON 4MG INJ IVP ONE (20:18)
[2023-12-25] MEDS: morPHINE 4 MG SYG IVP ONE (20:19)
[2023-12-25 20:31] LABS: BASOPHILS # (AUTO) 0.05 K/uL (0.00-0.20); BASOPHILS % (AUTO) 0.7 % (0.0-5.0); EOSINOPHILS # (AUTO) 0.12 K/uL (0.00-0.70); EOSINOPHILS % (AUTO) 1.7 % (0.0-8.0); HEMATOCRIT 32.1 % (36-48); IMMATURE GRANULOCYTE ABSOLUTE 0.02 K/uL (0-1); LYMPHOCYTES # (AUTO) 1.6 K/uL (1.0-4.8); LYMPHOCYTES % (AUTO) 22.4 % (21.0-51.0); MEAN CORPUSCULAR HEMOGLOBIN 29.7 pg (27.0-33.0); MEAN CORPUSCULAR HGB CONC 31.8 g/dL (32.0-36.0); MEAN CORPUSCULAR VOLUME 93.6 fL (79-99); MONOCYTES # (AUTO) 0.6 K/uL (0.1-1.0); MONOCYTES % (AUTO) 8.6 % (3.0-13.0); NEUTROPHILS # (AUTO) 4.7 K/uL (1.8-7.7); NEUTROPHILS % (AUTO) 66.3 % (40.0-77.0); PLATELET COUNT (AUTO) 343 K/uL (130-400); RED BLOOD CELL COUNT(AUTO) 3.43 MIL/uL (4.00-5.50); RED CELL DISTRIBUTION WIDTH 13.1 % (11.0-15.5); WHITE BLOOD COUNT (AUTO) 7.1 K/uL (4.8-10.8)
[2023-12-25 21:07] LABS: APPEARANCE,URINE CLEAR (CLEAR); BILIRUBIN,URINE NEGATIVE (NEGATIVE); COLOR,URINE LIGHT-YELLOW (YELLOW); GLUCOSE, URINE (UA) NEGATIVE (NEGATIVE); KETONES,URINE NEGATIVE (NEGATIVE); LEUKOCYTE ESTERASE ,URINE 500 Leu/uL (NEGATIVE); NITRATE,URINE NEGATIVE (NEGATIVE); OCCULT BLOOD,URINE NEGATIVE (NEGATIVE); PROTEIN,URINE NEGATIVE (NEGATIVE)
[2023-12-25 21:08] LABS: ADD UA MICROSCOPIC YES
[2023-12-25 21:13] LABS: BACTERIA,URINE RARE /HPF (None Seen); HYALINE CASTS, URINE 0-1 /LPF (0-1 /LPF); MUCUS,URINE RARE LPF (None Seen); SQUAMOUS EPITHELIAL CELL,UR FEW /HPF (0-2); UNCLASSIFIED CRYSTAL 5 /HPF (None Seen)
[2023-12-25 21:26] LABS: CREATININE 0.7 mg/dL (0.5-1.0); POTASSIUM 3.9 mmol/L (3.5-5.1)
[2023-12-25 22:01] VITALS: BP 118/77; PULSE 62; RESP 20; TEMP 98.6; O2SAT 99
[2023-12-25] MEDS: cefTRIAXone 1G VIAL IVPB ONE (22:03)
[2023-12-25] MEDS: acetaMINOPHEN 500 MG TABLET PO ONE (22:20)
[2023-12-25] MEDS ORDERED: CEPH500B PO (22:26)
== END 2023-12-25 22:38 | disposition home or self-care (01) ==
LOC: EDH 19:38
DX: N39.0 Urinary tract infection, site not specified (principal); K92.1 Melena; D64.9 Anemia, unspecified; K21.9 Gastro-esophageal reflux disease without esophagitis; F31.9 Bipolar disorder, unspecified; F41.9 Anxiety disorder, unspecified; Z79.899 Other long term (current) drug therapy; Z98.84 Bariatric surgery status; Z98.890 Other specified postprocedural states
CPT/HCPCS: 99284; 96365; 96375; 80048; 85025; 87086; 81001; 36415; J0696; J2405; J2270; J2470

== ENCOUNTER → 2024-01-09 | Outpatient (CLI) | payer MEDICARE ==
[~2024-01-09] MED LIST changes: +CEPH500B PO
== END | disposition home or self-care (01) ==
LOC: RAH 12:42
PROVIDERS: ATTEND Internal Medicine Gastroenterology
DX: R13.10 Dysphagia, unspecified (principal); R63.30 Feeding difficulties, unspecified
CPT/HCPCS: 74230; 92611

== ENCOUNTER 2024-01-30 14:41 | Emergency (ER) | payer MEDICARE ==
[~2024-01-30] VITALS: Ht 165.1 cm; Wt 55.3 kg
[2024-01-30] MEDS: acetaMINOPHEN 500 MG TABLET PO ONE (16:18)
[2024-01-30 16:49] LABS: RAPID GROUP A STREP negative (NEGATIVE)
[2024-01-30 16:54] LABS: APPEARANCE,URINE CLEAR (CLEAR); BILIRUBIN,URINE NEGATIVE (NEGATIVE); COLOR,URINE LIGHT-YELLOW (YELLOW); GLUCOSE, URINE (UA) NEGATIVE (NEGATIVE); HCG,QUALITATIVE URINE NEGATIVE (NEGATIVE); KETONES,URINE NEGATIVE (NEGATIVE); LEUKOCYTE ESTERASE ,URINE NEGATIVE Leu/uL (NEGATIVE); NITRATE,URINE NEGATIVE (NEGATIVE); PROTEIN,URINE NEGATIVE (NEGATIVE); UROBILINOGEN,URINE 0.2 mg/dL (0.2-1.0)
[2024-01-30 16:55] LABS: ADD UA MICROSCOPIC YES
[2024-01-30 16:56] LABS: BACTERIA,URINE RARE /HPF (None Seen); MUCUS,URINE RARE LPF (None Seen); SQUAMOUS EPITHELIAL CELL,UR RARE /HPF (0-2)
[2024-01-30 16:58] LABS: INFLUENZA TYPE A Negative For Type A (NEGATIVE); INFLUENZA TYPE B Negative For Type B (NEGATIVE)
[2024-01-30 16:59] LABS: SARS-CoV-2, RNA, NAAT NEGATIVE SARS CoV-2 (NEGATIVE)
--- NOTE | 2024-01-30 17:20 | ERN ---
General Chief Complaint: Generalized Body Aches Stated Complaint: BODY ACHES, FEVER, HEADACHE Time Seen by MD: 14:49 Time Seen by Midlevel: 14:49 Source: patient History of Present Illness Initial Comments Patient is a 48-year-old female with a past medical history of anxiety, bipolar disorder, depression, and gastric bypass who presents to the emergency d [facility] for evaluation of fever. Patient states her fever started at noon and decided to immediately report to the ER. Denies sick contacts. Denies any cough, congestion, abdominal pain, chest pain, shortness for breath, or any other symptoms at this time. Allergies: Uncoded Allergies: DERMABOND (Allergy, Unknown, RASH, 12/07/23) Home Meds Active Scripts Cephalexin Monohydrate (Keflex) 500 Mg Cap, 500 MG PO BID for 5 Days, #10 CAP Prov:JAYESH FITZPATRICK MD 12/25/23 Reported Medications Omeprazole (Omeprazole) 40 Mg Capsule.dr, 40 MG PO HS, CAP 12/05/23 Multivitamin (Multivitamin) 1 Each Tablet, 1 EACH PO DAILY, TAB 12/05/23 Hydrocodone/Acetaminophen (Hydrocodon-Acetaminophen 5-325) 5 Mg-325 Mg Tablet, 1 EACH PO QIDP PRN for PAIN, TAB 12/05/23 Sucralfate (Sucralfate) 1 Gram Tablet, 1 GM PO QID, TAB 12/05/23 Famotidine (Famotidine) 20 Mg Tablet, 20 MG PO DAILY, TAB 12/05/23 Gabapentin (Neurontin) 300 Mg Capsule, 300 MG PO TID, CAP 12/05/23 Benztropine Mesylate (Benztropine Mesylate) 1 Mg Tablet, 1 MG PO BID, TAB 12/05/23 Docusate Sodium (Docusate Sodium) 100 Mg Capsule, 100 MG PO BID, CAP 12/05/23 Levothyroxine Sodium (Levothyroxine Sodium) 25 Mcg Tablet, 25 MCG PO ACBKFST, TAB 12/05/23 Fluoxetine HCl (Prozac) 20 Mg Cap, 20 MG PO DAILY, CAP 12/05/23 Buspirone HCl (Buspirone HCl) 15 Mg Tablet, 15 MG PO BID, TAB 12/05/23 Linaclotide (Linzess) 290 Mcg Capsule, 290 MCG PO DAILY, CAP 12/05/23 Trazodone HCl (Trazodone HCl) 100 Mg Tablet, 100 MG PO HS, TAB 10/24/20 Olanzapine (Olanzapine) 10 Mg Tablet, 10 MG PO HS, TAB 10/24/20 [place] Carbonate ([place] Carbonate) 300 Mg Tablet, 300 MG PO BID, TAB 10/24/20 Past Medical History Past Medical History: Anxiety, Bipolar, Depression, GERD, GI Bleed Medical History Other: THYROID, PSYCHOSIS, STOMACH ISSUES Past Surgical History: Unknown Surgical History Other: GASTRIC BYPASS, NECK AND BACK FUSION Family History Family History: Negative Social History Social History: Negative, Lives with family Female( History) History: Not Applicable ROS Dictation CONSTITUTIONAL: Negative except for HPI HEAD/FACE: Negative except for HPI EENT: Negative except for HPI RESPIRATORY: Negative except for HPI GASTROINTESTINAL/ABDOMINAL: Negative except for HPI GENITOURINARY: Negative except for HPI MUSCULOSKELETAL: Negative except for HPI INTEGUMENTARY: Negative except for HPI NEUROLOGICAL/PSYCH: Negative except for HPI HEMATOLOGIC/LYMPHATIC: Negative except for HPI All Systems Negative, Except as noted above. 13 point review of systems assessed and all negative except for above. Physical Exam Physical Exam Dictation Vital Signs reviewed General Appearance: Alert, oriented x 3, no acute distress, well developed, nour ished. Head and Face: non-traumatic. Eyes: PERRL, pink conjunctivas, eyelid no trauma, anterior chamber with arcus senilis. Ears: Pinnas intact and no signs of trauma or erythema ear canals clear and no discharge TM no erythema Nose: No discharge, no bleeding. Oropharynx: Mouth normal, tongue pink, pharynx clear,no erythema, tonsils no exudates, no abscesses noted, mucous mem brane moist Neck: Supple, non-tender, no thyromegaly, no masses, no JVD, no bruits Breast:Deferred Chest:No tenderness, no crepitus, no paradoxical movement, no retractions Lungs:Clear, well-ventilated, symmetric, no rales, no wheezing, no rhonchi, no stridor, good breath sounds bilaterally Heart: Regular rate, regular rhythm, no murmur, no gallops Vascular: no peripheral edema, Abdomen: Soft, positive bowel sounds, nondistended, no guarding, nontender, no rebound, no masses no hepatomegaly, no splenomegaly, no Lock's sign, no hernias. Rectal: Deferred Genital: Deferred Neurological: Normal speech, motor function intact, sensory function intact Musculoskeletal: Neck nontender, full range of motion, back nontender, full range of motion, Extremities: nontender, full range of motion Skin: Color pink, dry, no turgor, no rash, no lacerations, no abrasions, no contusions. Lymphatic: Deferred Results Laboratory and Microbiology Lab and Micro Result Laboratory Tests Test 01/30/24 16:16 01/30/24 16:25 Urine Color LIGHT-YELLOW (YELLOW) Urine Appearance CLEAR (CLEAR) Urine pH 7.0 (5.0-8.0) Urine Specific [place] 1.017 (1.001-1.031) Urine Protein NEGATIVE mg/dL (NEGATIVE) Urine Glucose (UA) NEGATIVE mg/dL (NEGATIVE) Urine Ketones NEGATIVE mg/dL (NEGATIVE) Urine Occult Blood +- (TRACE) (NEGATIVE) H Urine Nitrate NEGATIVE (NEGATIVE) Urine Bilirubin NEGATIVE mg/dL (NEGATIVE) Urine Urobilinogen 0.2 mg/dL (0.2-1.0) Urine Leukocyte Esterase NEGATIVE John/uL Urine RBC 6-10 /HPF (0-1) H Urine WBC 2-5 /HPF (0-1) H Urine Squamous Epithelial Cells RARE /HPF (0-2) Urine Bacteria RARE /HPF (None Seen) Urine HCG, Qualitative NEGATIVE (NEGATIVE) Influenza Type A Antigen Negative For Type A Influenza Type B Antigen Negative For Type B SARS-CoV-2, RNA, NAAT NEGATIVE SARS CoV-2 Group A Streptococcus Rapid negative (NEGATIVE) Labs Reviewed?: Yes MDM MDM: Patient is a 48-year-old female with a past medical history of anxiety, bipolar disorder, depression, and gastric bypass who presents to the emergency department for evaluation of fever. Patient states her fever started at noon and decided to immediately report to the ER. Denies sick contacts. Denies any cough, congestion, abdominal pain, chest pain, shortness for breath, or any other symptoms at this time. On physical examination patient is in no acute distress. On arrival she was a temperature of 102.0. She has not taken anything for her fever. She was given 1 g of Tylenol in the emergency department. Given that she is not complaining of any nausea, vomiting, or abdominal pain respiratory swabs were obtained that were all negative. Her urine analysis does not show any evidence of infection at this time. Her symptoms are most likely viral in nature however she was advised that if her symptoms persist for over three days she is to report to the ER again for repeat evaluation. Patient agrees with this plan and is comfortable with plan for discharge. Return precautions were discussed and all of her questions were answered. Differential diagnosis: Viral syndrome, upper respiratory infection, urinary tract infection There are no social concerns with this patient. Prescription drug management Prescriptions will include: Supportive management Medical management and examination interpretation discussions were had by me with other qualified healthcare professionals as indicated for the patient's care. ED Course Orders Procedure Category Date Status Time Covid Rna Naat LAB 01/30/24 Complete 14:46 Rapid (Group A Strep) LAB 01/30/24 Complete 14:46 Influenza Type A & B, LAB 01/30/24 Complete Rapid 14:46 Acetaminophen 500mg PHA 01/30/24 Complete Tab (Tylenol 500mg T 16:00 Urinalysis Profile LAB 01/30/24 Complete 15:35 ,Urine Test LAB 01/30/24 Complete 15:35 Morphine 2mg Syg PHA 01/30/24 Complete (Morphine 2mg Syg) 17:30 Current Medications Medications (Trade) Dose Ordered Sig/Damian Route PRN Reason Start Time Stop Time Status Last Admin Dose Admin Acetaminophen (TYLenol 500MG TAB) 1,000 mg ONCE ONCE PO 01/30/24 16:00 01/30/24 16:01 DC 01/30/24 16:18 Morphine Sulfate (morPHINE 2MG SYG) 2 mg ONCE ONCE IM 01/30/24 17:30 01/30/24 17:31 DC 01/30/24 18:02 Vital Signs Date Time Temp Pulse Resp B/P (MAP) Pulse Ox O2 Delivery O2 Flow Rate FiO2 01/30/24 18:05 97.9 65 16 112/62 97 Room Air* 0 21 01/30/24 16:18 102.0 01/30/24 14:43 102.0 80 16 127/84 97 Room Air 0 DX & DISP Disposition: Discharge Departure Impression: Primary Impression: Viral syndrome Additional Impression: Fever Condition: Stable Referrals: RAYMON SCHRADER JR, MD (PCP) I have reviewed the case, and I agree with, Diagnosis and Plan I performed the substantive portion of the visit. I have reviewed and personally made and approve the management plan that is documented in the note by myself or the REJI. I acknowledge for responsibility for the patient's management plan. WAQAS PRYOR Jan 30, 2024 17:20
[2024-01-30 18:02] VITALS: TEMP 98.9
[2024-01-30] MEDS: morPHINE 2 MG SYG IM ONE (18:02)
[2024-01-30 18:05] VITALS: BP 112/62; PULSE 65; RESP 16; TEMP 97.9; O2SAT 97
== END 2024-01-30 18:06 | disposition home or self-care (01) ==
LOC: EDH 14:41
DX: B34.9 Viral infection, unspecified (principal); F31.9 Bipolar disorder, unspecified; F41.9 Anxiety disorder, unspecified; K21.9 Gastro-esophageal reflux disease without esophagitis; Z20.822 Contact with and (suspected) exposure to COVID-19; Z79.899 Other long term (current) drug therapy; Z98.84 Bariatric surgery status
CPT/HCPCS: 99283; 87635; 87880; 87804 ×2; 81001; 81025; 96372; J2270

== ENCOUNTER 2024-02-11 22:57 | Emergency (ER) | payer MEDICARE ==
[~2024-02-11] VITALS: Ht 157.5 cm; Wt 56.7 kg
--- NOTE | 2024-02-11 22:59 | NUR ---
COVID AND FLU SWABS COLLECTED AND SENT [facility] PROVIDED
[2024-02-11 23:34] LABS: APPEARANCE,URINE TURBID (CLEAR); BILIRUBIN,URINE NEGATIVE (NEGATIVE); COLOR,URINE YELLOW (YELLOW); GLUCOSE, URINE (UA) NEGATIVE (NEGATIVE); KETONES,URINE NEGATIVE (NEGATIVE); LEUKOCYTE ESTERASE ,URINE 500 Leu/uL (NEGATIVE); NITRATE,URINE NEGATIVE (NEGATIVE); OCCULT BLOOD,URINE MODERATE (NEGATIVE); PH,URINE 5.5 (5.0-8.0); PROTEIN,URINE 30 mg/dL (NEGATIVE); UROBILINOGEN,URINE 0.2 mg/dL (0.2-1.0)
[2024-02-11 23:37] LABS: ADD UA MICROSCOPIC YES
[2024-02-11 23:37] LABS: INFLUENZA TYPE A Negative For Type A (NEGATIVE); INFLUENZA TYPE B Negative For Type B (NEGATIVE)
[2024-02-11 23:40] LABS: BACTERIA,URINE MOD /HPF (None Seen); CALCIUM OXALATE CRYSTALS,UR MANY /LPF (None Seen); MUCUS,URINE FEW LPF (None Seen); RBC,URINE TNTC /HPF (0-1); SQUAMOUS EPITHELIAL CELL,UR FEW /HPF (0-2); WBC,URINE TNTC /HPF (0-1)
[2024-02-11 23:44] LABS: BASOPHILS # (AUTO) 0.04 K/uL (0.00-0.20); BASOPHILS % (AUTO) 0.5 % (0.0-5.0); EOSINOPHILS # (AUTO) 0.12 K/uL (0.00-0.70); EOSINOPHILS % (AUTO) 1.4 % (0.0-8.0); HEMATOCRIT 35.3 % (36-48); IMMATURE GRANULOCYTE ABSOLUTE 0.06 K/uL (0-1); LYMPHOCYTES # (AUTO) 2.4 K/uL (1.0-4.8); LYMPHOCYTES % (AUTO) 28.6 % (21.0-51.0); MEAN CORPUSCULAR HEMOGLOBIN 29.4 pg (27.0-33.0); MEAN CORPUSCULAR VOLUME 91.9 fL (79-99); MONOCYTES # (AUTO) 0.7 K/uL (0.1-1.0); MONOCYTES % (AUTO) 8.8 % (3.0-13.0); PLATELET COUNT (AUTO) 366 K/uL (130-400); RED BLOOD CELL COUNT(AUTO) 3.84 MIL/uL (4.00-5.50); RED CELL DISTRIBUTION WIDTH 12.3 % (11.0-15.5); WHITE BLOOD COUNT (AUTO) 8.3 K/uL (4.8-10.8)
[2024-02-11 23:48] LABS: SARS-CoV-2, RNA, NAAT NEGATIVE SARS CoV-2 (NEGATIVE)
[2024-02-11] MEDS: MAG/ALUM/SIMETH 30 ML UDCUP PO ONE (23:52)
[2024-02-11] MEDS: DICYCLOMINE HCL 10 MG/5 ML ML PO ONE (23:52)
[2024-02-11] MEDS: LIDOCAINE HCL 2% VISCOUS 15 ML UDCUP PO ONE (23:52)
[2024-02-11] MEDS: ondanSETRON 4MG INJ IVP ONE (23:52)
[2024-02-11] MEDS: LACTATED RINGERS 1000ML IV ONE (23:55)
--- NOTE | 2024-02-11 23:55 | ERN ---
General Chief Complaint: Abdominal Pain Stated Complaint: ABD PAIN, N/V Time Seen by MD: 23:05 History of Present Illness Initial Comments Mrs Tim is a 48-year-old female significant past medical history GERD, depression, history of gastric bypass who presents today with a chief complaint of nausea or vomiting. Patient reports epigastric pain over the last several hours. Patient states that she is pending a revision of her gastric bypass. Patient reports that she had lentils, soups, serial all which she had troubled by digesting. Patient denies any fevers chills lightheadedness dizziness double vision blurry vision headache chest pain Allergies: Uncoded Allergies: DERMABOND (Allergy, Unknown, RASH, 12/07/23) Home Meds Active Scripts Cephalexin Monohydrate (Keflex) 500 Mg Cap, 500 MG PO BID for 5 Days, #10 CAP Prov:JAYESH FITZPATRICK MD 12/25/23 Reported Medications Omeprazole (Omeprazole) 40 Mg Capsule.dr, 40 MG PO HS, CAP 12/05/23 Multivitamin (Multivitamin) 1 Each Tablet, 1 EACH PO DAILY, TAB 12/05/23 Hydrocodone/Acetaminophen (Hydrocodon-Acetaminophen 5-325) 5 Mg-325 Mg Tablet, 1 EACH PO QIDP PRN for PAIN, TAB 12/05/23 Sucralfate (Sucralfate) 1 Gram Tablet, 1 GM PO QID, TAB 12/05/23 Famotidine (Famotidine) 20 Mg Tablet, 20 MG PO DAILY, TAB 12/05/23 Gabapentin (Neurontin) 300 Mg Capsule, 300 MG PO TID, CAP 12/05/23 Benztropine Mesylate (Benztropine Mesylate) 1 Mg Tablet, 1 MG PO BID, TAB 12/05/23 Docusate Sodium (Docusate Sodium) 100 Mg Capsule, 100 MG PO BID, CAP 12/05/23 Levothyroxine Sodium (Levothyroxine Sodium) 25 Mcg Tablet, 25 MCG PO ACBKFST, TAB 12/05/23 Fluoxetine HCl (Prozac) 20 Mg Cap, 20 MG PO DAILY, CAP 12/05/23 Buspirone HCl (Buspirone HCl) 15 Mg Tablet, 15 MG PO BID, TAB 12/05/23 Linaclotide (Linzess) 290 Mcg Capsule, 290 MCG PO DAILY, CAP 12/05/23 Trazodone HCl (Trazodone HCl) 100 Mg Tablet, 100 MG PO HS, TAB 10/24/20 Olanzapine (Olanzapine) 10 Mg Tablet, 10 MG PO HS, TAB 10/24/20 [place] Carbonate ([place] Carbonate) 300 Mg Tablet, 300 MG PO BID, TAB 10/24/20 Past Medical History Past Medical History: Anxiety, Bipolar, Depression, GERD, GI Bleed Medical History Other: THYROID, PSYCHOSIS, STOMACH ISSUES Past Surgical History: Bariatric Surgery Surgical History Other: GASTRIC BYPASS, NECK AND BACK FUSION, BLADDER LIFT,HEMORRHOIDS Family History Family History: Negative Social History Social History: Negative, Lives with family Female( History) History: Not Applicable ROS Dictation Constitutional: Negative for fever,chills, and weight loss Eyes: Negative for injury, pain,redness, and discharge ENT: Negative for injury,pain or swelling Cardiovascular: Negative for chest pain, palpitations, and edema Respiratory: Negative for shortness of breath, cough, and wheezing, Abdomen/GI: Positive for abdominal pain, nausea, vomiting Back: Negative for injury and pain : Negative for injury, bleeding and discharge MS/Extremity: Negative for injury and deformity Skin: Negative for rash, and discoloration Neuro: Negative for headache, weakness, numbness, tingling, and seizure Psych: Negative for suicide ideation, homicidal ideation, and hallucinations Physical Exam Physical Exam Dictation General: awake, alert, NAD Head/Face: Normocephalic, atraumatic Eyes: PERRL, EOMI, vision at baseline ENT: oral cavity clear Neck: Trachea midline, supple, Cardiovascular: RRR, normal S1/S2, No MRGs, no JVD Respiratory: CTAB, no respiratory distress, No rales or wheezes Abdomen: Pain with palpation in the epigastric region. Skin: Warm, dry, normal turgor, no rash MS/Extremity: Pulses equal Neuro: COAx4, GCS 15 Psych: Normal behavior, mood, and affect normal Results Laboratory and Microbiology Lab and Micro Result Laboratory Tests Test 02/11/24 23:00 02/11/24 23:23 02/11/24 23:35 Influenza Type A Antigen Negative For Type A Influenza Type B Antigen Negative For Type B SARS-CoV-2, RNA, NAAT NEGATIVE SARS CoV-2 Urine Color YELLOW (YELLOW) Urine Appearance TURBID (CLEAR) Urine pH 5.5 (5.0-8.0) Urine Specific [place] 1.025 (1.001-1.031) Urine Protein 30 mg/dL (NEGATIVE) H Urine Glucose (UA) NEGATIVE mg/dL (NEGATIVE) Urine Ketones NEGATIVE mg/dL (NEGATIVE) Urine Occult Blood MODERATE (NEGATIVE) H Urine Nitrate NEGATIVE (NEGATIVE) Urine Bilirubin NEGATIVE mg/dL (NEGATIVE) Urine Urobilinogen 0.2 mg/dL (0.2-1.0) Urine Leukocyte Esterase 500 John/uL (NEGATIVE) H Urine RBC TNTC /HPF (0-1) H Urine WBC TNTC /HPF (0-1) H Urine Squamous Epithelial Cells FEW /HPF (0-2) Urine Calcium Oxalate Crystals MANY /LPF (None Seen) Urine Bacteria MOD /HPF (None Seen) White Blood Count 8.3 K/uL (4.8-10.8) Red Blood Count 3.84 MIL/uL (4.00-5.50) L Hemoglobin 11.3 g/dL (12.0-16.0) L Hematocrit 35.3 % (36-48) L Mean Corpuscular Volume 91.9 fL (79-99) Mean Corpuscular Hemoglobin 29.4 pg (27.0-33.0) Mean Corpuscular Hemoglobin Concent 32.0 g/dL (32.0-36.0) Red Cell Distribution Width 12.3 % (11.0-15.5) Platelet Count 366 K/uL (130-400) Mean Platelet Volume 8.8 fL (7.5-10.5) Immature Granulocyte % (Auto) 0.7 % (0-1) Neutrophils (%) (Auto) 60.0 % (40.0-77.0) Lymphocytes (%) (Auto) 28.6 % (21.0-51.0) Monocytes (%) (Auto) 8.8 % (3.0-13.0) Eosinophils (%) (Auto) 1.4 % (0.0-8.0) Basophils (%) (Auto) 0.5 % (0.0-5.0) Neutrophils # (Auto) 5.0 K/uL (1.8-7.7) Lymphocytes # (Auto) 2.4 K/uL (1.0-4.8) Monocytes # (Auto) 0.7 K/uL (0.1-1.0) Eosinophils # (Auto) 0.12 K/uL (0.00-0.70) Basophils # (Auto) 0.04 K/uL (0.00-0.20) Absolute Immature Granulocyte (auto 0.06 K/uL (0-1) Nucleated Red Blood Cells 0.0 % (0.0-0.19) Sodium Level 141 mmol/L (136-145) Potassium Level 4.0 mmol/L (3.5-5.1) Chloride Level 106 mmol/L (101-111) Carbon Dioxide Level 32 mmol/L (21-32) Blood Urea Nitrogen 13 mg/dL (7-18) Creatinine 0.6 mg/dL (0.5-1.0) Glomerular Filtration Rate Calc 110 mL/min (>90) Random Glucose 98 mg/dL (70-105) Total Calcium 8.6 mg/dL (8.5-10.1) Total Bilirubin 0.2 mg/dL (0.2-1.0) Direct Bilirubin < 0.1 mg/dL (0.0-0.3) Aspartate Amino Transf (AST/SGOT) 21 U/L (10-37) Alanine Aminotransferase (ALT/SGPT) 51 U/L (12-78) Alkaline Phosphatase 121 U/L (50-136) Total Protein 6.7 g/dL (6.0-8.3) Albumin 3.3 g/dL (3.5-5.0) L Lipase 38 U/L (16-77) MDM Patient was had improvement with the GI cocktail. Patient will be given Rocephin. MDM: Differential diagnosis: UTI Rationale: Tests considered and ordered secondary to shared decision making include: Previous outside records reviewed: Old ER visits. Risk of complication and/or morbidity or mortality of patient management: None Medications-Per medication reconciliation Need for hospitalization: Patient does not meet criteria for hospitalization. Need for emergency major/minor surgery: No There are no social concerns with this patient. Prescription drug management Prescriptions will include symptomatic care Patient's prior external medical records from other ER visits were reviewed by me as indicated. Prior testing and results from previous visits were reviewed. Prior tests were taken into account with medical decision making and resource utilization, independent historian/historians were used to obtain complete medical history. I independently interpreted the test that were performed, results were reviewed by me and considered findings on radiology if ordered. Medical management and examination interpretation discussions were had by me with other qualified healthcare professionals as indicated for the patient's care. ED Course Orders Procedure Category Date Status Time Vital Signs Per CPOE 02/11/24 Transmitted Routine 22:58 Saline Lock Iv CPOE 02/11/24 Transmitted 22:58 Cbc With Differential LAB 02/11/24 Complete 22:58 Lipase LAB 02/11/24 Complete 22:58 Urinalysis Profile LAB 02/11/24 Complete 22:58 Basic Metabolic Panel LAB 02/11/24 Complete 22:58 Hepatic Function Panel LAB 02/11/24 Complete 22:58 Covid Rna Naat LAB 02/11/24 Complete 22:58 Influenza Type A & B, LAB 02/11/24 Complete Rapid 22:58 Culture Urine JOSE 02/11/24 In Process 23:37 Lactated Ringers PHA 02/12/24 Complete 1000ml (Lactated 00:00 Mag/Alum/Simeth 30ml PHA 02/12/24 Complete (Maalox Plus 30ml) 00:00 Dicyclomine Hcl PHA 02/12/24 Complete (Bentyl 10mg/5ml 00:00 Lidocaine Hcl 2% PHA 02/12/24 Complete Viscous (Lidocaine Hcl 00:00 Ondansetron 4mg Inj PHA 02/12/24 Complete (Zofran 4mg Inj) 00:00 Morphine 4mg Syg PHA 02/12/24 Complete (Morphine 4mg Syg) 01:00 Current Medications Medications (Trade) Dose Ordered Sig/Damian Route PRN Reason Start Time Stop Time Status Last Admin Dose Admin Al Hydroxide/Mg Hydroxide (MAALox PLUS 30ML) 30 ml ONCE ONCE PO 02/12/24 00:00 02/12/24 00:01 DC 02/11/24 23:52 Dicyclomine HCl (Bentyl 10mg/5ml Syrup) 10 mg ONCE ONCE PO 02/12/24 00:00 02/12/24 00:01 DC 02/11/24 23:52 Lactated Ringer's (Lactated Ringers 1000ml) 1,000 ml ONCE ONCE IV 02/12/24 00:00 02/12/24 00:01 DC 02/11/24 23:55 Lidocaine HCl (Lidocaine HCl 2% Viscous) 10 ml ONCE ONCE PO 02/12/24 00:00 02/12/24 00:01 DC 02/11/24 23:52 Morphine Sulfate (morPHINE 4MG SYG) 4 mg ONCE ONCE IVP 02/12/24 01:00 02/12/24 01:01 DC 02/12/24 00:49 Ondansetron HCl (zoFRAN 4MG INJ) 4 mg ONCE ONCE IVP 02/12/24 00:00 02/12/24 00:01 DC 02/11/24 23:52 Vital Signs Date Time Temp Pulse Resp B/P (MAP) Pulse Ox O2 Delivery O2 Flow Rate FiO2 02/12/24 01:12 98.2 62 20 118/58 99 Room Air* 0 21 02/12/24 00:04 98.4 58 18 124/64 98 Room Air* 0 02/11/24 22:58 98.2 72 16 136/83 100 Room Air DX & DISP Disposition: Discharge Departure Impression: Primary Impression: UTI (urinary tract infection) Additional Impression: Nausea and vomiting Condition: Stable Scripts Sulfamethoxazole/Trimethoprim (Bactrim Ds Tablet) 800 Mg-160 Mg Tablet 1 TAB PO BID for 7 Days, #14 TAB 0 Refills Prov: MARINA FLORES MD 02/12/24 Referrals: RAYMON SCHRADER JR, MD (PCP) MARINA FLORES MD Feb 11, 2024 23:55
[2024-02-11 23:56] LABS: CARBON DIOXIDE 32 mmol/L (21-32); CHLORIDE 106 mmol/L (101-111); CREATININE 0.6 mg/dL (0.5-1.0); GLOMERULAR FILTR. RATE CALC 110 mL/min (>90); GLUCOSE,RANDOM 98 mg/dL (70-105); SODIUM SERUM 141 mmol/L (136-145); UREA NITROGEN, BLOOD 13 mg/dL (7-18)
[2024-02-12] LABS: ALANINE AMINOTRANSFERASE 51 U/L (12-78); ALBUMIN 3.3 g/dL (3.5-5.0); ASPARTATE AMINOTRANSFERASE 21 U/L (10-37); BILIRUBIN,DIRECT < 0.1 mg/dL (0.0-0.3); BILIRUBIN,TOTAL 0.2 mg/dL (0.2-1.0); TOTAL PROTEIN, SERUM 6.7 g/dL (6.0-8.3)
[2024-02-12] MEDS: morPHINE 4 MG SYG IVP ONE (00:49)
[2024-02-12 01:12] VITALS: BP 118/58; PULSE 62; RESP 20; TEMP 98.3; O2SAT 99
[2024-02-12] MEDS ORDERED: SULF1TAB42 PO (01:46)
[2024-02-12] MEDS ORDERED: sulfaMETHOX-TMP DS 800/160 TAB PO ONE (02:00)
[2024-02-12] MEDS: cefTRIAXone 1G VIAL IVPB ONE (02:03)
== END 2024-02-12 02:17 | disposition home or self-care (01) ==
LOC: EDH 22:57
DX: N39.0 Urinary tract infection, site not specified (principal); F31.9 Bipolar disorder, unspecified; F41.9 Anxiety disorder, unspecified; K21.9 Gastro-esophageal reflux disease without esophagitis; Z20.822 Contact with and (suspected) exposure to COVID-19; Z79.899 Other long term (current) drug therapy; Z98.84 Bariatric surgery status
CPT/HCPCS: 99284; 96374; 87635; 96361; 80076; 80048; 83690; 85025; 87086; 87804 ×2; 81001; 36415; 96375; J7120; J2405; J0696; J2270

== ENCOUNTER 2024-03-22 18:41 | Emergency (ER) | payer MEDICARE ==
[~2024-03-22] VITALS: Ht 165.1 cm; Wt 68.0 kg
[~2024-03-22 18:41] MED LIST changes: +SULF1TAB42 PO
--- NOTE | 2024-03-22 20:29 | ERN ---
General Chief Complaint: Hemorrhoids Stated Complaint: RECTAL PAIN HX OF HEMORROIDS Time Seen by MD: 19:10 Source: patient History of Present Illness Initial Comments Patient is a 48-year-old female coming in to be evaluated for rectal pain. Per patient she has been having this pain for about two days. She does have a history of hemorrhoids. She states that the pain began suddenly and believes it is related to her hemorrhoids. Allergies: Uncoded Allergies: DERMABOND (Allergy, Unknown, RASH, 12/07/23) Home Meds Active Scripts Sulfamethoxazole/Trimethoprim (Bactrim Ds Tablet) 800 Mg-160 Mg Tablet, 1 TAB PO BID for 7 Days, #14 TAB 0 Refills Prov:MARINA FLORES MD 02/12/24 Cephalexin Monohydrate (Keflex) 500 Mg Cap, 500 MG PO BID for 5 Days, #10 CAP Prov:JAYESH FITZPATRICK MD 12/25/23 Reported Medications Omeprazole (Omeprazole) 40 Mg Capsule.dr, 40 MG PO HS, CAP 12/05/23 Multivitamin (Multivitamin) 1 Each Tablet, 1 EACH PO DAILY, TAB 12/05/23 Hydrocodone/Acetaminophen (Hydrocodon-Acetaminophen 5-325) 5 Mg-325 Mg Tablet, 1 EACH PO QIDP PRN for PAIN, TAB 12/05/23 Sucralfate (Sucralfate) 1 Gram Tablet, 1 GM PO QID, TAB 12/05/23 Famotidine (Famotidine) 20 Mg Tablet, 20 MG PO DAILY, TAB 12/05/23 Gabapentin (Neurontin) 300 Mg Capsule, 300 MG PO TID, CAP 12/05/23 Benztropine Mesylate (Benztropine Mesylate) 1 Mg Tablet, 1 MG PO BID, TAB 12/05/23 Docusate Sodium (Docusate Sodium) 100 Mg Capsule, 100 MG PO BID, CAP 12/05/23 Levothyroxine Sodium (Levothyroxine Sodium) 25 Mcg Tablet, 25 MCG PO ACBKFST, TAB 12/05/23 Fluoxetine HCl (Prozac) 20 Mg Cap, 20 MG PO DAILY, CAP 12/05/23 Buspirone HCl (Buspirone HCl) 15 Mg Tablet, 15 MG PO BID, TAB 12/05/23 Linaclotide (Linzess) 290 Mcg Capsule, 290 MCG PO DAILY, CAP 12/05/23 Trazodone HCl (Trazodone HCl) 100 Mg Tablet, 100 MG PO HS, TAB 10/24/20 Olanzapine (Olanzapine) 10 Mg Tablet, 10 MG PO HS, TAB 10/24/20 [place] Carbonate ([place] Carbonate) 300 Mg Tablet, 300 MG PO BID, TAB 10/24/20 Past Medical History Past Medical History: Anxiety, Bipolar, Depression, Hypothyroid, Other Medical History Other: PTSD Past Surgical History: Hysterectomy, Cholecystectomy, Other Surgical History Other: GASTRIC BYPASS Family History Family History: Negative Social History Social History: Negative, Lives with family Female( History) History: Not Applicable ROS Dictation CONSTITUTIONAL: No chills, no fever, no weakness, no diaphoresis, no malaise. HEAD/FACE: No signs of trauma. EENT: No eye pain, no blurred vision, no tearing, no double vision, no ear pain, no ear discharge, no nose pain, no nasal congestion, no throat pain, no throat swelling, no mouth pain. RESPIRATORY: No cough, no orthopnea, no SOB, no stridor, no wheezing. CARDIOVASCULAR: No chest pain, no edema, no palpitations, no syncope. GASTROINTESTINAL/ABDOMINAL: No abdominal pain, no constipation, no diarrhea, no nausea, no vomiting. GENITOURINARY: No abnormal discharge, no dysuria, no frequent urination, no hematuria. No complaints of pain in the genitals. MUSCULOSKELETAL: No back pain, no gout, no joint pain, no joint swelling, no muscle pain, no muscle stiffness, no neck pain. INTEGUMENTARY: No change in color, no change in hair/nails, no dryness, no lesion, no lumps, no rash. NEUROLOGICAL/PSYCH: No anxiety, not depressed, no emotional problem, no headache, no numbness, no pre-existing deficit, no history of seizures, no tremors, no weakness. HEMATOLOGIC/LYMPHATIC: Not anemic, no history of blood clots, no apparent bleeding, no bruising, glands not swollen. All Systems Negative, Except as Noted. Physical Exam Physical Exam Dictation VITAL SIGNS: Reviewed. GENERAL APPEARANCE: Alert, oriented x3, no acute distress, obese. HEAD AND FACE: Non-traumatic. EYES: PERRL, pink conjunctivas, eyelid no trauma, anterior chamber clear. EARS: Pinnas intact and no signs of trauma or erythema. Ear canals clear and no discharge. TMs no erythema. NOSE: No discharge, no bleeding. OROPHARYNX: Mouth normal, teeth no caries, tongue pink. Pharynx clear, no erythema. Tonsils no exudates, no abscesses noted. Mucous membrane moist. NECK: Supple, non-tender, no thyromegaly, no masses, no JVD, no bruits. BREAST: Deferred. CHEST: No tenderness, no crepitus, no paradoxical movement, no retractions. LUNGS: Clear, well-ventilated, symmetric, no rales, no wheezing, no rhonchi, no stridor, good breath sounds bilaterally. HEART: Regular rate, regular rhythm, no murmur, no gallops. VASCULAR: No peripheral edema. ABDOMEN: Soft, positive bowel sounds, nondistended, no guarding, nontender, no rebound, no masses no hepatomegaly, no splenomegaly, no Lock's sign, no hernias. RECTAL: Deferred. GENITAL: Deferred. NEUROLOGICAL: Normal speech, gross motor function intact, gross sensory function intact. MUSCULOSKELETAL: Neck nontender, full range of motion, back nontender, full range of motion. EXTREMITIES: Nontender, full range of motion. SKIN: Color pink, dry, no turgor, no rash, no lacerations, no abrasions, no contusions. LYMPHATICS: Deferred. Results Laboratory and Microbiology Labs Reviewed?: Yes MDM MDM: Differential diagnosis: Thrombosed hemorrhoid, hemorrhoid, 48-year-old female coming in to be evaluated for rectal pain. Patient does have a history of hemorrhoids and warts. On physical exam there was a thrombosed hemorrhoid which was bleeding thrombus was evacuated cleaned out bleeding was controlled with chromic gut sutures. Patient tolerated procedure well, local anesthesia provided by lidocaine 1% 8 mL. ED Course Orders Procedure Category Date Status Time Lidocaine Hcl 1% 20ml PHA 03/22/24 Complete Vial (Lidocaine Hc 19:51 Acetaminophen 500mg PHA 03/22/24 Complete Tab (Tylenol 500mg T 20:30 Current Medications Medications (Trade) Dose Ordered Sig/Damian Route PRN Reason Start Time Stop Time Status Last Admin Dose Admin Acetaminophen (TYLenol 500MG TAB) 1,000 mg ONCE ONCE PO 03/22/24 20:30 03/22/24 20:31 DC 03/22/24 21:02 Lidocaine HCl (Lidocaine HCl 1% 20ml Vial) 20 ml ONCE STAT INJ 03/22/24 19:51 03/22/24 19:52 DC 03/22/24 21:02 Vital Signs Date Time Temp Pulse Resp B/P (MAP) Pulse Ox O2 Delivery O2 Flow Rate FiO2 03/22/24 19:45 99.0 95 20 132/68 97 Room Air Incision and Drainage Incision and Drainage : Blade Size: 11 I & D Procedure: no betadine prep Progress The thrombosed hemorrhoid found in the 6:00 a.m. region of the rectum was bleeding. Site was cleaned anesthetized using lidocaine 1% about 8 mL. Good anesthesia achieved. Hemorrhage site was expanded with a scalpel and thrombus was evacuated. Suture was placed to control mild hemorrhage. Patient tolerated procedure well. Will be discharged in stable condition. Chromic gut 4-0 x3 sutures were placed. DX & DISP Disposition: Discharge Departure Impression: Primary Impression: Thrombosed hemorrhoids Condition: Stable Scripts Cephalexin Monohydrate (Keflex) 500 Mg Cap 1 CAP PO QID for 10 Days, #40 CAP 0 Refills Prov: KEDAR HILL MD 03/22/24 Additional Instructions: FOLLOW-UP WITH PRIMARY CARE PROVIDER IN 1 TO 2 DAYS. TAKE MEDICATIONS DIRECTED HERE IN THE EMERGENCY ROOM. OKAY TO CONTINUE HOME MEDICATIONS UNLESS OTHERWISE DISCUSSED DURING YOUR VISIT IN THE EMERGENCY ROOM TODAY. RETURN TO YOUR NEAREST EMERGENCY ROOM IF SYMPTOMS WORSEN OR IF THERE IS NO IMPROVEMENT. CALL 911 IF YOU NEED IMMEDIATE ASSISTANCE. TAKE TYLENOL [id number] NEEDED AND IF NO CONTRAINDICATIONS ARE PRESENT. INCREASE ORAL HYDRATION. A WOUND CULTURE OR URINE CULTURE WAS ORDERED HERE IN THE EMERGENCY ROOM DEPARTMENT PLEASE FOLLOW-UP WITH PRIMARY CARE PROVIDER AND ADVISE THEM TO GET REPEAT PORTS FROM OUR FACILITY. IF YOU HAD ANY CESAR WRAP/SPLINTS THAT WERE APPLIED HERE, PLEASE DO NOT REMOVE THEM UNTIL YOU SEE YOUR PRIMARY CARE OR SPECIALTY. Referrals: Referrals: RAYMON SCHRADER JR, MD (PCP) TITUS PHELAN MD Time of Disposition: 22:02 KEDAR HILL MD Mar 22, 2024 20:29
--- NOTE | 2024-03-22 20:32 | NUR ---
PATIENT CALLED IN ER LOBBY, NO ANSWER
[2024-03-22] MEDS: LIDOCAINE HCL 1% 20 ML VIAL INJ STA (21:02)
[2024-03-22] MEDS: acetaMINOPHEN 500 MG TABLET PO ONE (21:02)
[2024-03-22] MEDS ORDERED: CEPH500B PO (22:03)
[2024-03-22 22:08] VITALS: BP 128/72; PULSE 88; RESP 16; TEMP 98.1; O2SAT 98
== END 2024-03-22 22:26 | disposition home or self-care (01) ==
LOC: EDH 18:41
DX: K64.5 Perianal venous thrombosis (principal); F41.9 Anxiety disorder, unspecified; E03.9 Hypothyroidism, unspecified; Z79.899 Other long term (current) drug therapy; Z90.49 Acquired absence of other specified parts of digestive tract; Z90.710 Acquired absence of both cervix and uterus; Z98.84 Bariatric surgery status
CPT/HCPCS: 46083; 99284

== ENCOUNTER 2024-05-31 18:40 | Emergency (ER) | payer MEDICARE ==
[~2024-05-31] VITALS: Ht 165.1 cm; Wt 72.6 kg
--- NOTE | 2024-05-31 18:50 | ERN ---
General Chief Complaint: Flu Symptoms Stated Complaint: FLU LIKE SYMPTOMS Time Seen by MD: 18:42 Time Seen by Midlevel: 18:42 Source: patient History of Present Illness Initial Comments The patient is a 48-year-old female with an extensive past medical history that includes anxiety, depression, bipolar disorder, and chronic pain presenting to the emergency department for evaluation of flu-like symptoms that started earlier today. Symptoms consist of generalized body aches and sore throat. Allergies: Uncoded Allergies: DERMABOND (Allergy, Unknown, RASH, 12/07/23) Home Meds Active Scripts Cephalexin Monohydrate (Keflex) 500 Mg Cap, 1 CAP PO QID for 10 Days, #40 CAP 0 Refills Prov:KEDAR HILL MD 03/22/24 Sulfamethoxazole/Trimethoprim (Bactrim Ds Tablet) 800 Mg-160 Mg Tablet, 1 TAB PO BID for 7 Days, #14 TAB 0 Refills Prov:MARINA FLORES MD 02/12/24 Cephalexin Monohydrate (Keflex) 500 Mg Cap, 500 MG PO BID for 5 Days, #10 CAP Prov:JAYESH FITZPATRICK MD 12/25/23 Reported Medications Omeprazole (Omeprazole) 40 Mg Capsule.dr, 40 MG PO HS, CAP 12/05/23 Multivitamin (Multivitamin) 1 Each Tablet, 1 EACH PO DAILY, TAB 12/05/23 Hydrocodone/Acetaminophen (Hydrocodon-Acetaminophen 5-325) 5 Mg-325 Mg Tablet, 1 EACH PO QIDP PRN for PAIN, TAB 12/05/23 Sucralfate (Sucralfate) 1 Gram Tablet, 1 GM PO QID, TAB 12/05/23 Famotidine (Famotidine) 20 Mg Tablet, 20 MG PO DAILY, TAB 12/05/23 Gabapentin (Neurontin) 300 Mg Capsule, 300 MG PO TID, CAP 12/05/23 Benztropine Mesylate (Benztropine Mesylate) 1 Mg Tablet, 1 MG PO BID, TAB 12/05/23 Docusate Sodium (Docusate Sodium) 100 Mg Capsule, 100 MG PO BID, CAP 12/05/23 Levothyroxine Sodium (Levothyroxine Sodium) 25 Mcg Tablet, 25 MCG PO ACBKFST, TAB 12/05/23 Fluoxetine HCl (Prozac) 20 Mg Cap, 20 MG PO DAILY, CAP 12/05/23 Buspirone HCl (Buspirone HCl) 15 Mg Tablet, 15 MG PO BID, TAB 12/05/23 Linaclotide (Linzess) 290 Mcg Capsule, 290 MCG PO DAILY, CAP 12/05/23 Trazodone HCl (Trazodone HCl) 100 Mg Tablet, 100 MG PO HS, TAB 10/24/20 Olanzapine (Olanzapine) 10 Mg Tablet, 10 MG PO HS, TAB 10/24/20 [place] Carbonate ([place] Carbonate) 300 Mg Tablet, 300 MG PO BID, TAB 10/24/20 Past Medical History Past Medical History: Anxiety, Bipolar, Depression, Hypothyroid, Other Medical History Other: PTSD Past Surgical History: Hysterectomy, Cholecystectomy, Other Surgical History Other: GASTRIC BYPASS Family History Family History: Negative Social History Social History: Negative, Lives with family Female( History) History: Not Applicable ROS Dictation CONSTITUTIONAL: Negative except for HPI HEAD/FACE: Negative except for HPI EENT: Negative except for HPI RESPIRATORY: Negative except for HPI GASTROINTESTINAL/ABDOMINAL: Negative except for HPI GENITOURINARY: Negative except for HPI MUSCULOSKELETAL: Negative except for HPI INTEGUMENTARY: Negative except for HPI NEUROLOGICAL/PSYCH: Negative except for HPI HEMATOLOGIC/LYMPHATIC: Negative except for HPI All Systems Negative, Except as noted above. 13 point review of systems assessed and all negative except for above. Physical Exam Physical Exam Dictation Vital Signs reviewed General Appearance: Alert, oriented x 3, no acute distress, well developed, nourished. Head and Face: non-traumatic. Eyes: PERRL, pink conjunctivas, eyelid no trauma, anterior chamber with arcus senilis. Ears: Pinnas intact and no signs of trauma or erythema ear canals clear and no discharge TM no erythema Nose: No discharge, no bleeding. Oropharynx: Mouth normal, tongue pink, pharynx clear,no erythema, tonsils no exudates, no abscesses noted, mucous membrane moist Neck: Supple, non-tender, no thyromegaly, no masses, no JVD, no bruits Breast:Deferred Chest:No tenderness, no crepitus, no paradoxical movement, no retractions Lungs:Clear, well-ventilated, symmetric, no rales, no wheezing, no rhonchi, no stridor, good breath sounds bilaterally Heart: Regular rate, regular rhythm, no murmur, no gallops Vascular: no peripheral edema, Abdomen: Soft, positive bowel sounds, nondistended, no guarding, nontender, no rebound, no masses no hepatomegaly, no splenomegaly, no Lock's sign, no hernias. Rectal: Deferred Genital: Deferred Neurological: Normal speech, motor function intact, sensory function intact Musculoskeletal: Neck nontender, full range of motion, back nontender, full range of motion, Extremities: nontender, full range of motion Skin: Color pink, dry, no turgor, no rash, no lacerations, no abrasions, no contusions. Lymphatic: Deferred Results Laboratory and Microbiology Lab and Micro Result Laboratory Tests Test 05/31/24 18:43 Influenza Type A Antigen Negative For Type A Influenza Type B Antigen Negative For Type B SARS-CoV-2, RNA, NAAT NEGATIVE SARS CoV-2 Group A Streptococcus Rapid negative (NEGATIVE) Labs Reviewed?: Yes MDM MDM: Differential diagnosis: Viral illness, upper respiratory infection, strep There are no social concerns with this patient. Prescription drug management Prescriptions will include: None Medical management and examination interpretation discussions were had by me with other qualified healthcare professionals as indicated for the patient's care. ED Course Orders Procedure Category Date Status Time Covid Rna Naat LAB 05/31/24 Complete 18:45 Influenza Type A & B, LAB 05/31/24 Complete Rapid 18:45 Rapid (Group A Strep) LAB 05/31/24 Complete 18:45 Vital Signs Date Time Temp Pulse Resp B/P (MAP) Pulse Ox O2 Delivery O2 Flow Rate FiO2 05/31/24 18:42 98.4 77 20 106/71 99 Room Air 0 DX & DISP Disposition: Discharge Departure Impression: Primary Impression: Viral syndrome Condition: Stable Additional Instructions: You have tested negative for influenza a, influenza B, COVID-19, and strep. Please follow up with your primary care doctor for further evaluation. Referrals: RAYMON SCHRADER JR, MD (PCP) Time of Disposition: 20:06 I have reviewed the case, and I agree with, Diagnosis and Plan I performed the substantive portion of the visit. I have reviewed and personally made and approve the management plan that is documented in the note by myself or the REJI. I acknowledge for responsibility for the patient's management plan. WAQAS PRYOR May 31, 2024 18:50
[2024-05-31 19:12] LABS: RAPID GROUP A STREP negative (NEGATIVE)
[2024-05-31 19:16] LABS: SARS-CoV-2, RNA, NAAT NEGATIVE SARS CoV-2 (NEGATIVE)
[2024-05-31 19:22] LABS: INFLUENZA TYPE A Negative For Type A (NEGATIVE); INFLUENZA TYPE B Negative For Type B (NEGATIVE)
[2024-05-31 20:10] VITALS: BP 106/66; PULSE 78; RESP 16; TEMP 98.3; O2SAT 98
== END 2024-05-31 20:16 | disposition home or self-care (01) ==
LOC: EDH 18:40
DX: B34.9 Viral infection, unspecified (principal); E03.9 Hypothyroidism, unspecified; F31.9 Bipolar disorder, unspecified; F41.9 Anxiety disorder, unspecified; Z20.822 Contact with and (suspected) exposure to COVID-19; Z79.899 Other long term (current) drug therapy; Z90.49 Acquired absence of other specified parts of digestive tract; Z90.710 Acquired absence of both cervix and uterus; Z98.84 Bariatric surgery status
CPT/HCPCS: 87635; 87804; 87880; 99283

== ENCOUNTER 2024-06-11 05:28 | Day surgery (SDC) | payer MEDICARE ==
[2024-06-08 11:30] VITALS: BP 97/61; PULSE 69; RESP 18; TEMP 97.3
--- NOTE | 2024-06-08 11:32 | EKG ---
[facility] Test Date: 2024-06-08 Test Time: 11:28:06 Pat Name: RAYNE GLASER Department: [facility] Room: Gender: F Receptionist Nurse: [id number] : 1975 Requested By: EB PARK Order Number: [id number] Reading MD: Nadia Gilbert Measurements Intervals Warner Rate: 62 P: 47 SD: 135 QRS: 42 QRSD: 104 T: 22 QT: 401 QTc: 408 Interpretive Statements Sinus rhythm Compared to ECG 12/05/2023 13:48:01 Myocardial infarct finding no longer present Electronically Signed On 06-09-2024 16:47:33 CDT by Nadia Gilbert Please click the below link to view image of tracing.
[2024-06-08 11:48] LABS: BASOPHILS # (AUTO) 0.04 K/uL (0.00-0.20); BASOPHILS % (AUTO) 0.7 % (0.0-5.0); EOSINOPHILS # (AUTO) 0.15 K/uL (0.00-0.70); EOSINOPHILS % (AUTO) 2.8 % (0.0-8.0); HEMATOCRIT 37.4 % (36-48); IMMATURE GRANULOCYTE ABSOLUTE 0.01 K/uL (0-1); LYMPHOCYTES # (AUTO) 1.5 K/uL (1.0-4.8); LYMPHOCYTES % (AUTO) 27.9 % (21.0-51.0); MEAN CORPUSCULAR HEMOGLOBIN 30.1 pg (27.0-33.0); MEAN CORPUSCULAR HGB CONC 32.9 g/dL (32.0-36.0); MEAN CORPUSCULAR VOLUME 91.4 fL (79-99); MONOCYTES # (AUTO) 0.5 K/uL (0.1-1.0); MONOCYTES % (AUTO) 8.8 % (3.0-13.0); NEUTROPHILS # (AUTO) 3.2 K/uL (1.8-7.7); NEUTROPHILS % (AUTO) 59.6 % (40.0-77.0); PLATELET COUNT (AUTO) 287 K/uL (130-400); RED BLOOD CELL COUNT(AUTO) 4.09 MIL/uL (4.00-5.50); RED CELL DISTRIBUTION WIDTH 12.2 % (11.0-15.5); WHITE BLOOD COUNT (AUTO) 5.4 K/uL (4.8-10.8)
[2024-06-08 12:01] LABS: INR 1.06 (0.85-1.15); PROTHROMBIN TIME 11.2 SEC (9.6-11.6)
[2024-06-08 12:02] LABS: PARTIAL THROMBOPLASTIN TIME 27.9 SEC (26.3-35.5)
[2024-06-08 12:22] LABS: ALBUMIN 3.7 g/dL (3.5-5.0); BILIRUBIN,TOTAL 0.4 mg/dL (0.2-1.0); CREATININE 0.6 mg/dL (0.5-1.0); POTASSIUM 4.5 mmol/L (3.5-5.1)
[~2024-06-11] VITALS: Ht 165.1 cm; Wt 67.0 kg
[2024-06-11] VITALS (13 sets, daily range): BP systolic 96–117; BP diastolic 53–77; PULSE 65–77; RESP 14–18; TEMP 97.1–97.3
[~2024-06-11 05:28] MED LIST changes: +BENZ0.5T44 PO; -BENZ1TAB83 PO; -CEPH500B PO; +ESOM40CA66 PO; -FLUO20CA30 PO; +FLUO40CA7 PO; -HYDR-4060 PO; +LITH150C PO; -LITH300T4 PO; -MULT-1367 PO; -OLAN10TA73 PO; +OLAN5TAB76 PO; -OMEP40CA21 PO; -SUCR1TAB2 PO; -SULF1TAB42 PO; +TIZA-194 PO
[2024-06-11] MEDS ORDERED: 0.9%NACL 1000ML 1,000 ML IV ONE (06:15)
[2024-06-11] MEDS ORDERED: ceFAZolin SODIUM 2 GM VIAL ONE (06:15)
[2024-06-11] MEDS ORDERED: LIDOCAINE HCL 2% PF 20 ML JEL DISP.SYRIN MM ONE (07:11)
[2024-06-11] MEDS ORDERED: BUPIvacaine/PF 0.25% 30ML VIAL IJ ONE (07:12)
[2024-06-11] MEDS ORDERED: LIDOCAINE HCL 1% 20 ML VIAL ONE (07:12)
[2024-06-11] MEDS ORDERED: MIDAZOLAM HCL 1 MG/ML 2ML VIAL ONE (07:52)
[2024-06-11] MEDS ORDERED: proPOFol 10 MG/ML 20ML VIAL IV ONE (07:52)
[2024-06-11] MEDS ORDERED: LIDOCAINE PF 100MG/5ML (2%) SYRINGE 5ML ONE (07:52)
[2024-06-11] MEDS ORDERED: FENTanyl CITRate PF 50 MCG/1 ML 2ML VIAL ONE (07:52)
[2024-06-11] MEDS: ceFAZolin SODIUM 2 GM VIAL IVPB ONE (08:00)
[2024-06-11] MEDS ORDERED: ondanSETRON 4MG INJ ONE (08:02)
[2024-06-11] MEDS ORDERED: dexaMETHasone SOD PHOSPHATE 4 MG/ML 1ML VIAL ONE (08:02)
[2024-06-11] MEDS ORDERED: phenylEPHRINE HCL 10 MG/ML 1ML VIAL IV ONE (08:14)
[2024-06-11] MEDS ORDERED: 0.9%NACL 10ML VIAL ONE (08:14)
[2024-06-11] MEDS: acetaMINOPHEN 100 ML ONE (08:44)
--- NOTE | 2024-06-11 08:44 | OP ---
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 Examination revealed the presence of a posterior fistula in anal. After discussion with the patient and explaining the risks and recuperation of the procedure she elected to undergo an anal fistulotomy and all other indicated procedures] DESCRIPTION OF PROCEDURE: [The patient was identified in the holding area transferred to the OR placed supine on the operative table. Venodyne boots were placed for DVT prophylaxis. IV antibiotics given. After general anesthesia was obtained, time-out conducted, perineum was prepped and draped in the usual sterile fashion after she was placed in lithotomy position with great care taken to pad all pressure points. Anal block was given with 0.25% Marcaine 1% lidocaine with epinephrine. Afterwards, careful examination reveal a posterior fistula in anal. A probe was passed from the external to internal opening revealing an interest enteric fistula. The fistula was unroofed and the base cauterized. Biopsy of the fistula tract was performed and passed to the back table. Hemostasis was noted to be excellent. The single chromic suture was placed at the apex of the fistulotomy below the dentate line. Area was aspirated and irrigated until clear. Surgicel left in the fistula tract. Counts done and correct. There were no complications. I was present and scrubbed for the entire case.] EB PRADO MD Jun 11, 2024 08:44
--- NOTE | 2024-06-11 09:47 | NUR ---
Full and complete discharge instructions given to Patient and Family both verbally and in writing. Explained Surgical procedure precautions and follow up. All questions answered. PIV removed with catheter tip intact. Home with Family W/C to POV.
== END 2024-06-11 09:40 | disposition home or self-care (01) ==
LOC: DAH 05:28
PROVIDERS: ATTEND Surgery
DX: K60.311 Anal fistula, simple, initial (principal); K62.5 Hemorrhage of anus and rectum; K62.89 Other specified diseases of anus and rectum; K21.9 Gastro-esophageal reflux disease without esophagitis; K64.1 Second degree hemorrhoids; K59.09 Other constipation; E78.5 Hyperlipidemia, unspecified; I10 Essential (primary) hypertension; F32.A Depression, unspecified; F41.9 Anxiety disorder, unspecified; K31.84 Gastroparesis; E11.43 Type 2 diabetes mellitus with diabetic autonomic (poly)neuropathy; E03.9 Hypothyroidism, unspecified; E66.9 Obesity, unspecified; Z98.890 Other specified postprocedural states; Z68.25 Body mass index [BMI] 25.0-25.9, adult; Z79.899 Other long term (current) drug therapy
CPT/HCPCS: 80053; 85025; 85610; 85730; 36415; 93005; 46270; 88304; A6260; J1100; A4663; J7120; J3010; J7030; J0665 ×2; J2003; J2250; J2704; J2405; J2371; J0690 ×2; A4215; A4213; A4222; A4221; A4216; A4223 ×2; J3490

== ENCOUNTER 2024-06-25 18:19 | Emergency (ER) | payer MEDICARE ==
[~2024-06-25] VITALS: Ht 165.1 cm; Wt 72.6 kg
--- NOTE | 2024-06-25 18:37 | ERN ---
ED Note History of Present Illness Stated Complaint: PELVIC AND BACK PAIN Chief Complaint: Flank Pain Time Seen by MD: 18:23 Dictation: PATIENT IS A 48-YEAR-OLD FEMALE HERE WITH LEFT FLANK PAIN RADIATING TO LEFT LOWER QUADRANT, ACUTE ONSET LAST TUESDAY. SHE HAS HAD NAUSEA WITHOUT VOMITING NO FEVER NO CHILLS. STATES SHE HAS A HISTORY OF URINARY TRACT INFECTIONS, DENIES ANY HISTORY OF UROLITHIASIS. NOT BEEN ABLE TO SEE YOUR PRIMARY CARE DOCTOR Allergies: Uncoded Allergies: DERMABOND (Allergy, Unknown, RASH, 12/07/23) Home Meds Reported Medications Tizanidine HCl (Tizanidine HCl) 2 Mg Tablet, 2 MG PO HS, TAB 06/08/24 Esomeprazole Magnesium (Esomeprazole Magnesium) 40 Mg Capsule.dr, 40 MG PO DAILY, CAP 06/08/24 Benztropine Mesylate (Benztropine Mesylate) 0.5 Mg Tablet, 0.5 MG PO HS, TAB 06/08/24 Fluoxetine HCl (Prozac) 40 Mg Capsule, 40 MG PO DAILY, CAP 06/08/24 Olanzapine (Olanzapine) 5 Mg Tablet, 5 MG PO HS, TAB 06/08/24 [place] Carbonate ([place] Carbonate) 150 Mg Capsule, 150 MG PO BID, CAP 06/08/24 Famotidine (Famotidine) 20 Mg Tablet, 20 MG PO HS, TAB 12/05/23 Gabapentin (Neurontin) 300 Mg Capsule, 300 MG PO TID, CAP 12/05/23 Docusate Sodium (Docusate Sodium) 100 Mg Capsule, 100 MG PO BID, CAP 12/05/23 Levothyroxine Sodium (Levothyroxine Sodium) 25 Mcg Tablet, 25 MCG PO ACBKFST, TAB 12/05/23 Buspirone HCl (Buspirone HCl) 15 Mg Tablet, 15 MG PO BID, TAB 12/05/23 Linaclotide (Linzess) 290 Mcg Capsule, 290 MCG PO DAILY, CAP 12/05/23 Trazodone HCl (Trazodone HCl) 100 Mg Tablet, 100 MG PO HS, TAB 10/24/20 Past Medical History Past Medical History: Anemia, Anxiety, Bipolar, Depression, Fibromyalgia, UTI Additional Past Medical Hx: PTSD Surgical History: Hysterectomy, Other, Bariatric Surgery Surgical History Other: NECK FUSSION, BACK FUSSION, Family History: Negative Social History: Negative, Lives with family History: Not Applicable RN Note Reviewed/Agreed w/PFSH: Yes Review of System Dictation CONSTITUTIONAL: NEGATIVE EXCEPT FOR HPI HEAD/FACE: NEGATIVE EXCEPT FOR HPI EENT: NEGATIVE EXCEPT FOR HPI RESPIRATORY: NEGATIVE EXCEPT FOR HPI GASTROINTESTINAL/ABDOMINAL: NEGATIVE EXCEPT FOR HP LEFT FLANK PAIN RADIATING LEFT LOWER QUADRANT WITH NAUSEA GENITOURINARY: NEGATIVE EXCEPT FOR HPI MUSCULOSKELETAL: NEGATIVE EXCEPT FOR HPI INTEGUMENTARY: NEGATIVE EXCEPT FOR HPI NEUROLOGICAL/PSYCH: NEGATIVE EXCEPT FOR HPI HEMATOLOGIC/LYMPHATIC: NEGATIVE EXCEPT FOR HPI ALL SYSTEMS NEGATIVE, EXCEPT NOTED ABOVE. 13 POINT REVIEW OF SYSTEMS ASSESSED AND ALL NEGATIVE EXCEPT FOR ABOVE. Initial Vital Sign VS Vital Signs Date Time Temp Pulse Resp B/P (MAP) Pulse Ox O2 Delivery O2 Flow Rate FiO2 06/25/24 18:22 98.4 75 18 120/70 100 Room Air 0 Physical Exam Dictation VITAL SIGNS REVIEWED GENERAL APPEARANCE: ALERT, ORIENTED X 3, MODERATE ACUTE DISTRESS, WELL DEVELOPED, NOURISHED. HEAD AND FACE: NON-TRAUMATIC. EYES: PERRL, PINK CONJUNCTIVAS, EYELID NO TRAUMA, ANTERIOR CHAMBER WITH ARCUS SENILIS. EARS: PINNAS INTACT AND NO SIGNS OF TRAUMA OR ERYTHEMA EAR CANALS CLEAR AND NO DISCHARGE TM NO ERYTHEMA NOSE: NO DISCHARGE, NO BLEEDING. OROPHARYNX: MOUTH NORMAL, TONGUE PINK, PHARYNX CLEAR,NO ERYTHEMA, TONSILS NO EXUDATES, NO ABSCESSES NOTED, MUCOUS MEMBRANE MOIST NECK: SUPPLE, NON-TENDER, NO THYROMEGALY, NO MASSES, NO JVD, NO BRUITS BREAST:DEFERRED CHEST:NO TENDERNESS, NO CREPITUS, NO PARADOXICAL MOVEMENT, NO RETRACTIONS LUNGS:CLEAR, WELL-VENTILATED, SYMMETRIC, NO RALES, NO WHEEZING, NO RHONCHI, NO STRIDOR, GOOD BREATH SOUNDS BILATERALLY HEART: REGULAR RATE, REGULAR RHYTHM, NO MURMUR, NO GALLOPS VASCULAR: NO PERIPHERAL EDEMA, ABDOMEN: SOFT, POSITIVE BOWEL SOUNDS, NONDISTENDED, NO GUARDING, NONTENDER, NO REBOUND, NO MASSES NO HEPATOMEGALY, NO SPLENOMEGALY, NO SIERRA'S SIGN, NO HERNIAS. NEGATIVE CVAT BILATERAL RECTAL: DEFERRED GENITAL: DEFERRED NEUROLOGICAL: NORMAL SPEECH, MOTOR FUNCTION INTACT, SENSORY FUNCTION INTACT MUSCULOSKELETAL: NECK NONTENDER, FULL RANGE OF MOTION, BACK NONTENDER, FULL RANGE OF MOTION, EXTREMITIES: NONTENDER, FULL RANGE OF MOTION SKIN: COLOR PINK, DRY, NO TURGOR, NO RASH, NO LACERATIONS, NO ABRASIONS, NO CONTUSIONS. LYMPHATIC: DEFERRED Results (Laboratory/Radiology) Laboratory/Radiology Laboratory Tests Test 06/25/24 18:30 06/25/24 18:50 Urine Color YELLOW (YELLOW) Urine Appearance CLOUDY (CLEAR) H Urine pH 5.5 (5.0-8.0) Urine Specific [place] 1.026 (1.001-1.031) Urine Protein 100 mg/dL (NEGATIVE) H Urine Glucose (UA) NEGATIVE mg/dL (NEGATIVE) Urine Ketones 5 mg/dL (NEGATIVE) H Urine Occult Blood LARGE (NEGATIVE) H Urine Nitrate 2+ (NEGATIVE) H Urine Bilirubin NEGATIVE mg/dL (NEGATIVE) Urine Urobilinogen 0.2 mg/dL (0.2-1.0) Urine Leukocyte Esterase 500 John/uL (NEGATIVE) H Urine RBC 26-50 /HPF (0-1) H Urine WBC 51-100 /HPF (0-1) H Urine Squamous Epithelial Cells FEW /HPF (0-2) Urine Other Crystals (Auto) 4 /HPF (None Seen) Urine Bacteria None /HPF (None Seen) White Blood Count 6.9 K/uL (4.8-10.8) Red Blood Count 3.99 MIL/uL (4.00-5.50) L Hemoglobin 12.0 g/dL (12.0-16.0) Hematocrit 36.5 % (36-48) Mean Corpuscular Volume 91.5 fL (79-99) Mean Corpuscular Hemoglobin 30.1 pg (27.0-33.0) Mean Corpuscular Hemoglobin Concent 32.9 g/dL (32.0-36.0) Red Cell Distribution Width 11.9 % (11.0-15.5) Platelet Count 303 K/uL (130-400) Mean Platelet Volume 8.7 fL (7.5-10.5) Immature Granulocyte % (Auto) 0.3 % (0-1) Neutrophils (%) (Auto) 68.4 % (40.0-77.0) Lymphocytes (%) (Auto) 23.0 % (21.0-51.0) Monocytes (%) (Auto) 5.9 % (3.0-13.0) Eosinophils (%) (Auto) 1.7 % (0.0-8.0) Basophils (%) (Auto) 0.7 % (0.0-5.0) Neutrophils # (Auto) 4.7 K/uL (1.8-7.7) Lymphocytes # (Auto) 1.6 K/uL (1.0-4.8) Monocytes # (Auto) 0.4 K/uL (0.1-1.0) Eosinophils # (Auto) 0.12 K/uL (0.00-0.70) Basophils # (Auto) 0.05 K/uL (0.00-0.20) Absolute Immature Granulocyte (auto 0.02 K/uL (0-1) Nucleated Red Blood Cells 0.0 % (0.0-0.19) Sodium Level 141 mmol/L (136-145) Potassium Level 3.9 mmol/L (3.5-5.1) Chloride Level 104 mmol/L (101-111) Carbon Dioxide Level 30 mmol/L (21-32) Blood Urea Nitrogen 14 mg/dL (7-18) Creatinine 0.7 mg/dL (0.5-1.0) Glomerular Filtration Rate Calc 106 mL/min (>90) Random Glucose 99 mg/dL (70-105) Total Calcium 8.8 mg/dL (8.5-10.1) Lipase 18 U/L (16-77) CT was performed with one or more of the following dose reduction techniques: Automated exposure control, adjustment of the mA and/or kV according to patient size, or use of iterative reconstruction technique. COMPARISON: None FINDINGS: ON NONCONTRAST IMAGING: ABDOMEN: Heart size is normal. Visible lung bases are clear. Gastric bypass surgery changes. No abnormal right renal calcifications, hydronephrosis, perinephric inflammation, or proximal hydroureter detected. 3 mm nonobstructing calculus at the midportion of the left kidney. A couple of punctate nonobstructing stones near the same level. The liver is normal in size and smooth in contour without biliary duct dilation. Diffuse low attenuation of the liver parenchyma suggests fatty change. The spleen is normal in size and attenuation. The gallbladder is absent. The pancreas appears normal without pancreatic duct dilation. The adrenal glands appear normal. No significant abdominal, retrocrural or retroperitoneal adenopathy noted. No evidence for intra-abdominal free air or organized fluid collection. No aortic aneurysmal dilation identified. PELVIS: No abnormal calcifications within the urinary bladder or distal ureters. No evidence for free air or organized pelvic fluid collection. No significant pelvic adenopathy detected. Extensive mid to distal colonic stool burden. Extensive small bowel anastomotic suture material. Terminal ileum appears unremarkable. The appendix appears normal. Uterus is absent. Multiple pelvic phleboliths. Streak artifact from L4-L5 interbody hardware. Very small partially-calcific fibroids may be present on the cervical cuff. 17 mm long by 3 mm wide metallic pin or other hardware within the cecum. IMPRESSION: 1. Nonobstructing left nephrolithiasis. 2. 17 mm long by 3 mm wide metallic pin or other hardware within the cecum. 3. Hepatic steatosis. 4. Constipation Labs Reviewed?: Yes ED Course ED Course Orders Procedure Category Date Status Time Cbc With Differential LAB 06/25/24 Complete 18:33 Urinalysis Profile LAB 06/25/24 Complete 18:33 0.9%Nacl 1000ml (Ns PHA 06/25/24 Complete 1000ml) 19:00 Ketorolac PHA 06/25/24 Complete Tromethamine 30mg/Ml 19:00 Ondansetron 4mg Inj PHA 06/25/24 Complete (Zofran 4mg Inj) 19:00 Ct Abdomen/Pelvis W/O CT 06/25/24 Resulted Contrast 18:33 Lipase LAB 06/25/24 Complete 18:33 Basic Metabolic Panel LAB 06/25/24 Complete 18:33 Culture Urine JOSE 06/25/24 In Process 18:42 Blood Cult JOSE 06/25/24 In Process 19:01 Ceftriaxone 1g Vial PHA 06/25/24 In Process (Rocephine 1g Inj) 19:30 Morphine 2mg Syg PHA 06/25/24 In Process (Morphine 2mg Syg) 19:30 Ondansetron 4mg Inj PHA 06/25/24 In Process (Zofran 4mg Inj) 19:30 Current Medications Medications (Trade) Dose Ordered Sig/Damian Route PRN Reason Start Time Stop Time Status Last Admin Dose Admin Ceftriaxone Sodium (ROCEphine 1G INJ) 1 gm ONCE IVP 06/25/24 19:30 06/25/24 23:30 06/25/24 19:22 Ketorolac Tromethamine (toRADol) 30 mg ONCE ONCE IVP 06/25/24 19:00 06/25/24 19:01 DC 06/25/24 18:57 Morphine Sulfate (morPHINE 2MG SYG) 2 mg ONCE IVP 06/25/24 19:30 06/25/24 23:59 06/25/24 19:30 Ondansetron HCl (zoFRAN 4MG INJ) 4 mg ONCE IVP 06/25/24 19:30 06/25/24 23:59 Ondansetron HCl (zoFRAN 4MG INJ) 4 mg ONCE ONCE IVP 06/25/24 19:00 06/25/24 19:01 DC 06/25/24 18:57 Sodium Chloride 1,000 ml @ 0 mls/hr ONCE ONCE IV 06/25/24 19:00 06/25/24 19:01 DC 06/25/24 18:57 Vital Signs Date Time Temp Pulse Resp B/P (MAP) Pulse Ox O2 Delivery O2 Flow Rate FiO2 06/25/24 18:22 98.4 75 18 120/70 100 Room Air 0 1950/PATIENT OUT OF PAIN AT THIS TIME. SHE HAS A AWARE SHE HAS A UTI WITH A STONE LEFT KIDNEY THAT IS NONOBSTRUCTING DISCHARGED HOME WITH AUGMENTIN AND PYRIDIUM IBUPROFEN TOLD SEE HER PRIMARY CARE DOCTOR Medical Decision Making MDM MEDICAL DECISION-MAKING BASED ON ABDOMINAL LABS/URINALYSIS AND CAT SCAN TO RULE OUT KIDNEY STONE. PATIENT HAS UTI NONOBSTRUCTING LEFT RENAL LITHIASIS DISCHARGED HOME WITH AUGMENTIN/PYRIDIUM/MOTRIN PATIENT TOLD INCREASE FLUIDS AND SEE HER DOCTOR DX & DISP Disposition: Discharge Departure Impression: Primary Impression: Left renal stone Additional Impression: Acute cystitis with hematuria Condition: Stable Scripts Phenazopyridine HCl (Pyridium) 200 Mg Tab 200 MG PO TIDPC for 3 Days, #9 TAB TAKE WITH FOOD TO PREVENT STOMACH UPSET. Prov: AURORA SARKAR NP 06/25/24 Ibuprofen (Ibuprofen 800 mg Tab) 800 Mg Tab 800 MG PO Q8H PRN for fever or pain, #30 TAB 0 Refills Prov: AURORA SARKAR NP 06/25/24 Amoxicillin/Potassium Clav (Amox Tr-K Clv 875-125 mg Tab) 875 Mg-125 Mg Tablet 1 EACH PO BID for 7 Days, #14 TAB 0 Refills Prov: AURORA SAKRAR NP 06/25/24 Additional Instructions: FOLLOW-UP WITH PRIMARY CARE PROVIDER IN 1 TO 2 DAYS. TAKE MEDICATIONS DIRECTED HERE IN THE EMERGENCY ROOM. OKAY TO CONTINUE HOME MEDICATIONS UNLESS OTHERWISE DISCUSSED DURING YOUR VISIT IN THE EMERGENCY ROOM TODAY. RETURN TO YOUR NEAREST EMERGENCY ROOM IF SYMPTOMS WORSEN OR IF THERE IS NO IMPROVEMENT. CALL 911 IF YOU NEED IMMEDIATE ASSISTANCE. TAKE TYLENOL OR MOTRIN [id number] NEEDED AND IF NO CONTRAINDICATIONS ARE PRESENT. INCREASE ORAL HYDRATION. A WOUND CULTURE OR URINE CULTURE WAS ORDERED HERE IN THE EMERGENCY ROOM DEPARTMENT PLEASE FOLLOW-UP WITH PRIMARY CARE PROVIDER AND ADVISE THEM TO GET REPEAT PORTS FROM OUR FACILITY. IF YOU HAD ANY CESAR WRAP/SPLINTS THAT WERE APPLIED HERE, PLEASE DO NOT REMOVE THEM UNTIL YOU SEE YOUR PRIMARY CARE OR SPECIALTY. TAKE ANTIBIOTICS DIRECTED UNTIL GONE., TAKE PYRIDIUM DIRECTED UNTIL GONE. , INCREASE YOUR WATER INTAKE. SEE YOUR PRIMARY CARE DOCTOR WITHOUT FAIL FOR FURTHER UP AND MANAGE Referrals: RAYMON SCHRADER JR, MD (PCP) Time of Disposition: 19:54 I have reviewed the case, and I agree with, Diagnosis and Plan AURORA SARKAR NP Jun 25, 2024 18:37
[2024-06-25 18:40] LABS: APPEARANCE,URINE CLOUDY (CLEAR); BILIRUBIN,URINE NEGATIVE (NEGATIVE); COLOR,URINE YELLOW (YELLOW); GLUCOSE, URINE (UA) NEGATIVE (NEGATIVE); KETONES,URINE 5 mg/dL (NEGATIVE); LEUKOCYTE ESTERASE ,URINE 500 Leu/uL (NEGATIVE); NITRATE,URINE 2+ (NEGATIVE); OCCULT BLOOD,URINE LARGE (NEGATIVE); PH,URINE 5.5 (5.0-8.0); PROTEIN,URINE 100 mg/dL (NEGATIVE); UROBILINOGEN,URINE 0.2 mg/dL (0.2-1.0)
[2024-06-25 18:41] LABS: ADD UA MICROSCOPIC YES
[2024-06-25 18:44] LABS: MUCUS,URINE FEW LPF (None Seen); RBC,URINE 26-50 /HPF (0-1); SQUAMOUS EPITHELIAL CELL,UR FEW /HPF (0-2); UNCLASSIFIED CRYSTAL 4 /HPF (None Seen); WBC,URINE 51-100 /HPF (0-1)
[2024-06-25] MEDS: ketOROlac 30MG VIAL (30MG/ML) IVP ONE (18:57)
[2024-06-25] MEDS: ondanSETRON 4MG INJ IVP ONE (18:57)
[2024-06-25] MEDS: 0.9%NACL 1000ML 1,000 ML IV ONE (18:57)
[2024-06-25 19:02] LABS: BASOPHILS # (AUTO) 0.05 K/uL (0.00-0.20); BASOPHILS % (AUTO) 0.7 % (0.0-5.0); EOSINOPHILS # (AUTO) 0.12 K/uL (0.00-0.70); EOSINOPHILS % (AUTO) 1.7 % (0.0-8.0); HEMATOCRIT 36.5 % (36-48); IMMATURE GRANULOCYTE ABSOLUTE 0.02 K/uL (0-1); LYMPHOCYTES # (AUTO) 1.6 K/uL (1.0-4.8); MEAN CORPUSCULAR HEMOGLOBIN 30.1 pg (27.0-33.0); MEAN CORPUSCULAR HGB CONC 32.9 g/dL (32.0-36.0); MEAN CORPUSCULAR VOLUME 91.5 fL (79-99); MONOCYTES # (AUTO) 0.4 K/uL (0.1-1.0); MONOCYTES % (AUTO) 5.9 % (3.0-13.0); NEUTROPHILS # (AUTO) 4.7 K/uL (1.8-7.7); NEUTROPHILS % (AUTO) 68.4 % (40.0-77.0); PLATELET COUNT (AUTO) 303 K/uL (130-400); RED BLOOD CELL COUNT(AUTO) 3.99 MIL/uL (4.00-5.50); RED CELL DISTRIBUTION WIDTH 11.9 % (11.0-15.5); WHITE BLOOD COUNT (AUTO) 6.9 K/uL (4.8-10.8)
--- NOTE | 2024-06-25 19:11 | HMCIMG ---
CT ABDOMEN WITHOUT CONTRAST. CT PELVIS WITHOUT CONTRAST. INDICATION: Left flank pain radiating to the left lower abdomen TECHNIQUE: Routine transaxial imaging using 5 mm slice thickness through the abdomen and pelvis without the administration of IV contrast. Thin slice reconstructions are also provided. Coronal and sagittal reformatted images acquired for interpretation. CT was performed with one or more of the following dose reduction techniques: Automated exposure control, adjustment of the mA and/or kV according to patient size, or use of iterative reconstruction technique. COMPARISON: None FINDINGS: ON NONCONTRAST IMAGING: ABDOMEN: Heart size is normal. Visible lung bases are clear. Gastric bypass surgery changes. No abnormal right renal calcifications, hydronephrosis, perinephric inflammation, or proximal hydroureter detected. 3 mm nonobstructing calculus at the midportion of the left kidney. A couple of punctate nonobstructing stones near the same level. The liver is normal in size and smooth in contour without biliary duct dilation. Diffuse low attenuation of the liver parenchyma suggests fatty change. The spleen is normal in size and attenuation. The gallbladder is absent. The pancreas appears normal without pancreatic duct dilation. The adrenal glands appear normal. No significant abdominal, retrocrural or retroperitoneal adenopathy noted. No evidence for intra-abdominal free air or organized fluid collection. No aortic aneurysmal dilation identified. PELVIS: No abnormal calcifications within the urinary bladder or distal ureters. No evidence for free air or organized pelvic fluid collection. No significant pelvic adenopathy detected. Extensive mid to distal colonic stool burden. Extensive small bowel anastomotic suture material. Terminal ileum appears unremarkable. The appendix appears normal. Uterus is absent. Multiple pelvic phleboliths. Streak artifact from L4-L5 interbody hardware. Very small partially-calcific fibroids may be present on the cervical cuff. 17 mm long by 3 mm wide metallic pin or other hardware within the cecum. IMPRESSION: 1. Nonobstructing left nephrolithiasis. 2. 17 mm long by 3 mm wide metallic pin or other hardware within the cecum. 3. Hepatic steatosis. 4. Constipation
[2024-06-25] MEDS: cefTRIAXone 1G VIAL IVP SCH (19:22)
[2024-06-25 19:24] LABS: CREATININE 0.7 mg/dL (0.5-1.0); POTASSIUM 3.9 mmol/L (3.5-5.1)
[2024-06-25] MEDS: morPHINE 2 MG SYG IVP SCH (19:30)
[2024-06-25] MEDS: ondanSETRON 4MG INJ IVP SCH (19:30)
[2024-06-25] MEDS ORDERED: IBUP-2077 PO (19:55)
[2024-06-25] MEDS ORDERED: AMOX1TAB16 PO (19:55)
[2024-06-25] MEDS ORDERED: PHEN-847 PO (19:55)
[2024-06-25 20:14] VITALS: BP 115/65; PULSE 71; RESP 16; TEMP 97.9; O2SAT 100
== END 2024-06-25 20:15 | disposition home or self-care (01) ==
LOC: EDH 18:19
DX: N20.0 Calculus of kidney (principal); N30.01 Acute cystitis with hematuria; F41.9 Anxiety disorder, unspecified; F43.10 Post-traumatic stress disorder, unspecified; M79.7 Fibromyalgia; Z79.899 Other long term (current) drug therapy; Z90.710 Acquired absence of both cervix and uterus
CPT/HCPCS: 99285; 74176; 96374; 96375; 80048; 83690; 85025; 87040 ×2; 87086 ×2; 87186; 81001; 36415; J1885; J2270; J7030; J0696; J2405

== ENCOUNTER 2024-07-01 08:24 | Emergency (ER) | payer MEDICARE ==
[~2024-07-01] VITALS: Ht 165.1 cm; Wt 72.6 kg
[~2024-07-01 08:24] MED LIST changes: +AMOX1TAB16 PO; +IBUP-2077 PO; +PHEN-847 PO
--- NOTE | 2024-07-01 09:15 | HMCIMG ---
ULTRASOUND OF THE PELVIS INDICATION: Pelvic pain COMPARISONS: None TECHNIQUE: Transabdominal real-time sonographic images were acquired earlier, and subsequently made available for review. FINDINGS: Uterus and ovaries are surgically absent. No abnormal adnexal masses demonstrated. Urinary bladder wall thickness measures 3.0 mm and prevoid volume = 1006 mL. No free pelvic fluid demonstrated. IMPRESSION: No acute pelvic abnormality noted.
[2024-07-01] MEDS: PHENAZOpyridine HCL 200 MG TAB 200 MG TABLET PO ONE (10:38)
[2024-07-01 10:41] LABS: APPEARANCE,URINE CLOUDY (CLEAR); BILIRUBIN,URINE NEGATIVE (NEGATIVE); COLOR,URINE LIGHT-YELLOW (YELLOW); GLUCOSE, URINE (UA) TRACE mg/dL (NEGATIVE); KETONES,URINE NEGATIVE (NEGATIVE); LEUKOCYTE ESTERASE ,URINE 250 Leu/uL (NEGATIVE); NITRATE,URINE NEGATIVE (NEGATIVE); OCCULT BLOOD,URINE SMALL (NEGATIVE); PROTEIN,URINE 10 mg/dL (NEGATIVE); UROBILINOGEN,URINE 0.2 mg/dL (0.2-1.0)
[2024-07-01 10:47] LABS: AMPHET/METH SCREEN,URINE NEGATIVE (NEGATIVE); BARBITURATE SCREEN, URINE NEGATIVE (NEGATIVE); BENZODIAZEPINES SCREEN,URINE NEGATIVE (NEGATIVE); CANNABINOID SCREEN,URINE NEGATIVE (NEGATIVE); COCAINE SCREEN,URINE NEGATIVE (NEGATIVE); OPIATE SCREEN,URINE NEGATIVE (NEGATIVE); PHENCYCLIDINE SCREEN,URINE NEGATIVE (NEGATIVE)
[2024-07-01 10:48] LABS: MUCUS,URINE RARE LPF (None Seen); RBC,URINE 26-50 /HPF (0-1); SQUAMOUS EPITHELIAL CELL,UR RARE /HPF (0-2); WBC,URINE 26-50 /HPF (0-1)
[2024-07-01] MEDS ORDERED: CEPH500B PO (10:57)
--- NOTE | 2024-07-01 10:57 | ERN ---
General Chief Complaint: Pelvic Pain Stated Complaint: PELVIC PAIN, INABILITY TO URINATE Time Seen by MD: 08:25 Source: patient History of Present Illness Initial Comments In his is a 49-year-old female coming in to be evaluated for suprapubic tenderne ss. It was the associated she was recently evaluated for a kidney stone states that she has been having some discomfort since then. Allergies: Uncoded Allergies: DERMABOND (Allergy, Unknown, RASH, 12/07/23) Home Meds Active Scripts Phenazopyridine HCl (Pyridium) 200 Mg Tab, 200 MG PO TIDPC for 3 Days, #9 TAB TAKE WITH FOOD TO PREVENT STOMACH UPSET. Prov:AURORA SARKAR NP 06/25/24 Ibuprofen (Ibuprofen 800 mg Tab) 800 Mg Tab, 800 MG PO Q8H PRN for fever or pain, #30 TAB 0 Refills Prov:AURORA SARKAR NP 06/25/24 Amoxicillin/Potassium Clav (Amox Tr-K Clv 875-125 mg Tab) 875 Mg-125 Mg Tablet, 1 EACH PO BID for 7 Days, #14 TAB 0 Refills Prov:AURORA SARKAR NP 06/25/24 Reported Medications Tizanidine HCl (Tizanidine HCl) 2 Mg Tablet, 2 MG PO HS, TAB 06/08/24 Esomeprazole Magnesium (Esomeprazole Magnesium) 40 Mg Capsule.dr, 40 MG PO DAILY, CAP 06/08/24 Benztropine Mesylate (Benztropine Mesylate) 0.5 Mg Tablet, 0.5 MG PO HS, TAB 06/08/24 Fluoxetine HCl (Prozac) 40 Mg Capsule, 40 MG PO DAILY, CAP 06/08/24 Olanzapine (Olanzapine) 5 Mg Tablet, 5 MG PO HS, TAB 06/08/24 [place] Carbonate ([place] Carbonate) 150 Mg Capsule, 150 MG PO BID, CAP 06/08/24 Famotidine (Famotidine) 20 Mg Tablet, 20 MG PO HS, TAB 12/05/23 Gabapentin (Neurontin) 300 Mg Capsule, 300 MG PO TID, CAP 12/05/23 Docusate Sodium (Docusate Sodium) 100 Mg Capsule, 100 MG PO BID, CAP 12/05/23 Levothyroxine Sodium (Levothyroxine Sodium) 25 Mcg Tablet, 25 MCG PO ACBKFST, TAB 12/05/23 Buspirone HCl (Buspirone HCl) 15 Mg Tablet, 15 MG PO BID, TAB 12/05/23 Linaclotide (Linzess) 290 Mcg Capsule, 290 MCG PO DAILY, CAP 12/05/23 Trazodone HCl (Trazodone HCl) 100 Mg Tablet, 100 MG PO HS, TAB 10/24/20 Past Medical History Past Medical History: Anemia, Anxiety, Bipolar, Depression, Fibromyalgia, Kidney Stone, UTI Medical History Other: PTSD Past Surgical History: Hysterectomy, Other, Bariatric Surgery Surgical History Other: NECK FUSSION, BACK FUSSION, Family History Family History: Negative Social History Social History: Negative, Lives with family Female( History) History: Not Applicable ROS Dictation CONSTITUTIONAL: No chills, no fever, no weakness, no diaphoresis, no malaise. HEAD/FACE: No signs of trauma. EENT: No eye pain, no blurred vision, no tearing, no double vision, no ear pain, no ear discharge, no nose pain, no nasal congestion, no throat pain, no throat swelling, no mouth pain. RESPIRATORY: No cough, no orthopnea, no SOB, no stridor, no wheezing. CARDIOVASCULAR: No chest pain, no edema, no palpitations, no syncope. GASTROINTESTINAL/ABDOMINAL: No abdominal pain, no constipation, no diarrhea, no nausea, no vomiting. GENITOURINARY: No abnormal discharge, dysuria, no frequent urination, no hematuria. No complaints of pain in the genitals. MUSCULOSKELETAL: No back pain, no gout, no joint pain, no joint swelling, no muscle pain, no muscle stiffness, no neck pain. INTEGUMENTARY: No change in color, no change in hair/nails, no dryness, no lesion, no lumps, no rash. NEUROLOGICAL/PSYCH: No anxiety, not depressed, no emotional problem, no headache, no numbness, no pre-existing deficit, no history of seizures, no tremors, no weakness. HEMATOLOGIC/LYMPHATIC: Not anemic, no history of blood clots, no apparent bleeding, no bruising, glands not swollen. All Systems Negative, Except as Noted. Physical Exam Physical Exam Dictation VITAL SIGNS: Reviewed. GENERAL APPEARANCE: Alert, oriented x3, no acute distress, obese. HEAD AND FACE: Non-traumatic. EYES: PERRL, pink conjunctivas, eyelid no trauma, anterior chamber clear. EARS: Pinnas intact and no signs of trauma or erythema. Ear canals clear and no discharge. TMs no erythema. NOSE: No discharge, no bleeding. OROPHARYNX: Mouth normal, teeth no caries, tongue pink. Pharynx clear, no erythema. Tonsils no exudates, no abscesses noted. Mucous membrane moist. NECK: Supple, non-tender, no thyromegaly, no masses, no JVD, no bruits. BREAST: Deferred. CHEST: No tenderness, no crepitus, no paradoxical movement, no retractions. LUNGS: Clear, well-ventilated, symmetric, no rales, no wheezing, no rhonchi, no stridor, good breath sounds bilaterally. HEART: Regular rate, regular rhythm, no murmur, no gallops. VASCULAR: No peripheral edema. ABDOMEN: Soft, positive bowel sounds, nondistended, no guarding, suprapubic tender, no rebound, no masses no hepatomegaly, no splenomegaly, no Lock's sign, no hernias. RECTAL: Deferred. GENITAL: Deferred. NEUROLOGICAL: Normal speech, gross motor function intact, gross sensory function intact. MUSCULOSKELETAL: Neck nontender, full range of motion, back nontender, full range of motion. EXTREMITIES: Nontender, full range of motion. SKIN: Color pink, dry, no turgor, no rash, no lacerations, no abrasions, no contusions. LYMPHATICS: Deferred. Results Laboratory and Microbiology Lab and Micro Result Laboratory Tests Test 07/01/24 10:35 Urine Color LIGHT-YELLOW (YELLOW) Urine Appearance CLOUDY (CLEAR) H Urine pH 7.0 (5.0-8.0) Urine Specific [place] 1.012 (1.001-1.031) Urine Protein 10 mg/dL (NEGATIVE) H Urine Glucose (UA) TRACE mg/dL (NEGATIVE) H Urine Ketones NEGATIVE mg/dL (NEGATIVE) Urine Occult Blood SMALL (NEGATIVE) H Urine Nitrate NEGATIVE (NEGATIVE) Urine Bilirubin NEGATIVE mg/dL (NEGATIVE) Urine Urobilinogen 0.2 mg/dL (0.2-1.0) Urine Leukocyte Esterase 250 John/uL (NEGATIVE) H Urine RBC 26-50 /HPF (0-1) H Urine WBC 26-50 /HPF (0-1) H Urine Squamous Epithelial Cells RARE /HPF (0-2) Urine Bacteria None /HPF (None Seen) Urine Opiates Screen NEGATIVE (NEGATIVE) Urine Barbiturates Screen NEGATIVE (NEGATIVE) Urine Phencyclidine Screen NEGATIVE (NEGATIVE) Urine Amphetamines Screen NEGATIVE (NEGATIVE) Urine Benzodiazepines Screen NEGATIVE (NEGATIVE) Urine Cocaine Screen NEGATIVE (NEGATIVE) Urine Marijuana (THC) Screen NEGATIVE (NEGATIVE) Labs Reviewed?: Yes EKG/XRAY/US/CT/MRI Ultrasound Comment [facility] [address] [place] [address] IMAGING REPORT Signed PATIENT: RAYNE GLASER MR#: [id number] : 1975 SEX: F AGE: 49 LOCATION: [facility] ORDER 8 STATUS: [facility] REPORT#: [id number] SERVICE 6 REASON: PELVIC PAIN ORDERING PHYSICIAN: KEDAR HILL MD PROCEDURE: PELVCOMP - US PELVIC NON-OB COMP ULTRASOUND OF THE PELVIS INDICATION: Pelvic pain COMPARISONS: None TECHNIQUE: Transabdominal real-time sonographic images were acquired earlier, and subsequently made available for review. FINDINGS: Uterus and ovaries are surgically absent. No abnormal adnexal masses demonstrated. Urinary bladder wall thickness measures 3.0 mm and prevoid volume = 1006 mL. No free pelvic fluid demonstrated. IMPRESSION: No acute pelvic abnormality noted. DICTATED BY: KEITH ESCALANTE MD DATE: 07/01/24904 ELECTRONICALLY SIGNED BY: KEITH ESCALANTE MD DATE: 07/01/24914 [facility] MDM: Differential diagnosis: UTI, urine retention, Rationale: Tests considered and ordered secondary to shared decision making include: Previous outside records reviewed: Old ER visits. Risk of complication and/or morbidity or mortality of patient management: None Patient is a 49-year-old female coming in with suprapubic tenderness. Ultrasound disclose urine retention of the 1 L. Pierre catheter was placed jagdeep ent states he feels much better. Urine analysis showed elevated leuko esterase consistent with UTI. Patient will be discharged in stable condition with a diagnosis of urine retention with UTI. Patient will be referred back to her urologist Dr. Butler. ED Course Orders Procedure Category Date Status Time Urinalysis LAB 4/13/25 Complete W/Microscopic 08:27 Drug Screen Urine LAB 07/01/24 Complete 08:27 Phenazopyridine Hcl PHA 07/01/24 Complete 200 Mg Tab (Pyridium 08:30 Us Pelvic Non-Ob Comp US 07/01/24 Resulted 08:27 Nurse Driven Pierre GRACIE 07/01/24 In Process Removal Pro 10:19 Culture Urine JOSE 07/01/24 In Process 10:42 Current Medications Medications (Trade) Dose Ordered Sig/Damian Route PRN Reason Start Time Stop Time Status Last Admin Dose Admin Phenazopyridine HCl (PYRIdium HCL 200 MG TAB) 200 mg ONCE ONCE PO 07/01/24 08:30 07/01/24 08:32 DC 07/01/24 10:38 Vital Signs Date Time Temp Pulse Resp B/P (MAP) Pulse Ox O2 Delivery O2 Flow Rate FiO2 07/01/24 10:28 98.1 82 14 115/83 99 Room Air* 0 21 07/01/24 08:25 98.1 82 14 115/83 99 Room Air 0 DX & DISP Disposition: Discharge Departure Impression: Primary Impression: Urinary tract infection Additional Impression: Urinary retention Condition: Stable Scripts Cephalexin Monohydrate (Keflex) 500 Mg Cap 1 CAP PO BID for 10 Days, #20 CAP 0 Refills Prov: KEDAR HILL MD 07/01/24 Additional Instructions: FOLLOW-UP WITH PRIMARY CARE PROVIDER IN 1 TO 2 DAYS. TAKE MEDICATIONS DIRECTED HERE IN THE EMERGENCY ROOM. OKAY TO CONTINUE HOME MEDICATIONS UNLESS OTHERWISE DISCUSSED DURING YOUR VISIT IN THE EMERGENCY ROOM TODAY. RETURN TO YOUR NEAREST EMERGENCY ROOM IF SYMPTOMS WORSEN OR IF THERE IS NO IMPROVEMENT. CALL 911 IF YOU NEED IMMEDIATE ASSISTANCE. TAKE TYLENOL [id number]-[id number] NEEDED AND IF NO CONTRAINDICATIONS ARE PRESENT. INCREASE ORAL HYDRATION. A WOUND CULTURE OR URINE CULTURE WAS ORDERED HERE IN THE EMERGENCY ROOM DEPARTMENT PLEASE FOLLOW-UP WITH PRIMARY CARE PROVIDER AND ADVISE THEM TO GET REPEAT PORTS FROM OUR FACILITY. IF YOU HAD ANY CESAR WRAP/SPLINTS THAT WERE APPLIED HERE, PLEASE DO NOT REMOVE THEM UNTIL YOU SEE YOUR PRIMARY CARE OR SPECIALTY. Referrals: Referrals: MARINA FUENTES (PCP) Time of Disposition: 10:56 KEDAR HILL MD Jul 01, 2024 10:57
[2024-07-01] MEDS: acetaMINOPHEN 500 MG TABLET PO ONE (11:31)
[2024-07-01 11:49] VITALS: BP 121/84; PULSE 80; RESP 18; TEMP 98.1; O2SAT 99
== END 2024-07-01 11:51 | disposition home or self-care (01) ==
LOC: EDH 08:24
DX: N39.0 Urinary tract infection, site not specified (principal); R33.9 Retention of urine, unspecified; F31.9 Bipolar disorder, unspecified; F41.9 Anxiety disorder, unspecified; F43.10 Post-traumatic stress disorder, unspecified; M79.7 Fibromyalgia; Z79.899 Other long term (current) drug therapy; Z90.710 Acquired absence of both cervix and uterus
CPT/HCPCS: 76856; 80305; 81001; 87086; 87186; 99284

== ENCOUNTER 2024-08-21 22:49 | Emergency (ER) | payer MEDICARE, MEDICAID ==
[~2024-08-21] VITALS: Ht 165.1 cm; Wt 65.3 kg
[~2024-08-21 22:49] MED LIST changes: +CEPH500B PO
[2024-08-21 23:10] LABS: APPEARANCE,URINE CLEAR (CLEAR); BILIRUBIN,URINE NEGATIVE (NEGATIVE); COLOR,URINE COLORLESS (YELLOW); GLUCOSE, URINE (UA) NEGATIVE (NEGATIVE); KETONES,URINE NEGATIVE (NEGATIVE); LEUKOCYTE ESTERASE ,URINE 500 Leu/uL (NEGATIVE); NITRATE,URINE NEGATIVE (NEGATIVE); OCCULT BLOOD,URINE MODERATE (NEGATIVE); PROTEIN,URINE NEGATIVE (NEGATIVE); UROBILINOGEN,URINE 0.2 mg/dL (0.2-1.0)
[2024-08-21 23:11] LABS: ADD UA MICROSCOPIC YES
--- NOTE | 2024-08-21 23:12 | ERN ---
ED Note History of Present Illness Stated Complaint: C/O PAIN,BURNING WHEN VOIDING, W/LOWER BACK PAIN Chief Complaint: Painful Urination Time Seen by MD: 22:52 Dictation: PATIENT IS A 49-YEAR-OLD FEMALE COMING IN TODAY WITH COMPLAINTS OF LEFT FLANK PAIN THAT RADIATES TO THE LEFT LOWER QUADRANT WITHOUT NAUSEA VOMITING FEVER CHILLS ONSET WAS THIS EVENING. SHE STATES SHE DOES HAVE A HISTORY OF KNOWN LEFT RENAL STONES THAT WERE DIAGNOSED BY DR. TINSLEY AT [facility] IN [facility] AND HAS A AN APPOINTMENT WITH HIS PA NEXT WEEK. SHE SAID THE PAIN GOT WORSE THIS EVENING AND DECIDED COME BACK FOR FURTHER EVALUATION Allergies: Uncoded Allergies: DERMABOND (Allergy, Unknown, RASH, 12/07/23) Home Meds Active Scripts Cephalexin Monohydrate (Keflex) 500 Mg Cap, 1 CAP PO BID for 10 Days, #20 CAP 0 Refills Prov:KEDAR HILL MD 07/01/24 Phenazopyridine HCl (Pyridium) 200 Mg Tab, 200 MG PO TIDPC for 3 Days, #9 TAB TAKE WITH FOOD TO PREVENT STOMACH UPSET. Prov:AURORA SARKAR NP 06/25/24 Ibuprofen (Ibuprofen 800 mg Tab) 800 Mg Tab, 800 MG PO Q8H PRN for fever or pain, #30 TAB 0 Refills Prov:AURORA SARKAR NP 06/25/24 Amoxicillin/Potassium Clav (Amox Tr-K Clv 875-125 mg Tab) 875 Mg-125 Mg Tablet, 1 EACH PO BID for 7 Days, #14 TAB 0 Refills Prov:AURORA SARKAR NP 06/25/24 Reported Medications Tizanidine HCl (Tizanidine HCl) 2 Mg Tablet, 2 MG PO HS, TAB 06/08/24 Esomeprazole Magnesium (Esomeprazole Magnesium) 40 Mg Capsule.dr, 40 MG PO DAILY, CAP 06/08/24 Benztropine Mesylate (Benztropine Mesylate) 0.5 Mg Tablet, 0.5 MG PO HS, TAB 06/08/24 Fluoxetine HCl (Prozac) 40 Mg Capsule, 40 MG PO DAILY, CAP 06/08/24 Olanzapine (Olanzapine) 5 Mg Tablet, 5 MG PO HS, TAB 06/08/24 [place] Carbonate ([place] Carbonate) 150 Mg Capsule, 150 MG PO BID, CAP 06/08/24 Famotidine (Famotidine) 20 Mg Tablet, 20 MG PO HS, TAB 12/05/23 Gabapentin (Neurontin) 300 Mg Capsule, 300 MG PO TID, CAP 12/05/23 Docusate Sodium (Docusate Sodium) 100 Mg Capsule, 100 MG PO BID, CAP 12/05/23 Levothyroxine Sodium (Levothyroxine Sodium) 25 Mcg Tablet, 25 MCG PO ACBKFST, TAB 12/05/23 Buspirone HCl (Buspirone HCl) 15 Mg Tablet, 15 MG PO BID, TAB 12/05/23 Linaclotide (Linzess) 290 Mcg Capsule, 290 MCG PO DAILY, CAP 12/05/23 Trazodone HCl (Trazodone HCl) 100 Mg Tablet, 100 MG PO HS, TAB 10/24/20 Past Medical History Past Medical History: Anxiety, Bipolar, Depression, Diabetes-Type II, Hypothyroid, Kidney Stone Additional Past Medical Hx: PTSD Surgical History: Unknown Surgical History Other: NECK FUSSION, BACK FUSSION, Family History: Negative Social History: Negative, Lives with family History: Not Applicable RN Note Reviewed/Agreed w/PFSH: Yes Review of System Dictation A NORMAL ROS CONSTITUTIONAL: NEGATIVE EXCEPT FOR HPI HEAD/FACE: NEGATIVE EXCEPT FOR HPI EENT: NEGATIVE EXCEPT FOR HPI RESPIRATORY: NEGATIVE EXCEPT FOR HPI GASTROINTESTINAL/ABDOMINAL: NEGATIVE EXCEPT FOR HPI LEFT FLANK PAIN THAT RADIATES TO LEFT LOWER QUADRANT GENITOURINARY: NEGATIVE EXCEPT FOR HPI MUSCULOSKELETAL: NEGATIVE EXCEPT FOR HPI INTEGUMENTARY: NEGATIVE EXCEPT FOR HPI NEUROLOGICAL/PSYCH: NEGATIVE EXCEPT FOR HPI HEMATOLOGIC/LYMPHATIC: NEGATIVE EXCEPT FOR HPI ALL SYSTEMS NEGATIVE, EXCEPT NOTED ABOVE. 13 POINT REVIEW OF SYSTEMS ASSESSED AND ALL NEGATIVE EXCEPT FOR ABOVE. Initial Vital Sign VS Vital Signs Date Time Temp Pulse Resp B/P (MAP) Pulse Ox O2 Delivery O2 Flow Rate FiO2 08/21/24 22:51 98.4 56 20 122/85 100 Room Air Physical Exam Dictation VITAL SIGNS REVIEWED GENERAL APPEARANCE: ALERT, ORIENTED X 3, MILD ACUTE DISTRESS, WELL DEVELOPED, NOURISHED. HEAD AND FACE: NON-TRAUMATIC. EYES: PERRL, PINK CONJUNCTIVAS, EYELID NO TRAUMA, ANTERIOR CHAMBER WITH ARCUS SENILIS. EARS: PINNAS INTACT AND NO SIGNS OF TRAUMA OR ERYTHEMA EAR CANALS CLEAR AND NO DISCHARGE TM NO ERYTHEMA NOSE: NO DISCHARGE, NO BLEEDING. OROPHARYNX: MOUTH NORMAL, TONGUE PINK, PHARYNX CLEAR,NO ERYTHEMA, TONSILS NO EXUDATES, NO ABSCESSES NOTED, MUCOUS MEMBRANE MOIST NECK: SUPPLE, NON-TENDER, NO THYROMEGALY, NO MASSES, NO JVD, NO BRUITS BREAST:DEFERRED CHEST:NO TENDERNESS, NO CREPITUS, NO PARADOXICAL MOVEMENT, NO RETRACTIONS LUNGS:CLEAR, WELL-VENTILATED, SYMMETRIC, NO RALES, NO WHEEZING, NO RHONCHI, NO STRIDOR, GOOD BREATH SOUNDS BILATERALLY HEART: REGULAR RATE, REGULAR RHYTHM, NO MURMUR, NO GALLOPS VASCULAR: NO PERIPHERAL EDEMA, ABDOMEN: SOFT, POSITIVE BOWEL SOUNDS, NONDISTENDED, NO GUARDING, NONTENDER, NO REBOUND, NO MASSES NO HEPATOMEGALY, NO SPLENOMEGALY, NO SIERRA'S SIGN, NO HERNIAS. NEGATIVE CVAT BILATERALLY RECTAL: DEFERRED GENITAL: DEFERRED NEUROLOGICAL: NORMAL SPEECH, MOTOR FUNCTION INTACT, SENSORY FUNCTION INTACT MUSCULOSKELETAL: NECK NONTENDER, FULL RANGE OF MOTION, BACK NONTENDER, FULL RANGE OF MOTION, EXTREMITIES: NONTENDER, FULL RANGE OF MOTION SKIN: COLOR PINK, DRY, NO TURGOR, NO RASH, NO LACERATIONS, NO ABRASIONS, NO CONTUSIONS. LYMPHATIC: DEFERRED Results (Laboratory/Radiology) Laboratory/Radiology Laboratory Tests Test 08/21/24 22:57 08/21/24 23:38 Urine Color COLORLESS (YELLOW) Urine Appearance CLEAR (CLEAR) Urine pH 7.0 (5.0-8.0) Urine Specific [place] 1.002 (1.001-1.031) Urine Protein NEGATIVE mg/dL (NEGATIVE) Urine Glucose (UA) NEGATIVE mg/dL (NEGATIVE) Urine Ketones NEGATIVE mg/dL (NEGATIVE) Urine Occult Blood MODERATE (NEGATIVE) H Urine Nitrate NEGATIVE (NEGATIVE) Urine Bilirubin NEGATIVE mg/dL (NEGATIVE) Urine Urobilinogen 0.2 mg/dL (0.2-1.0) Urine Leukocyte Esterase 500 John/uL (NEGATIVE) H Urine RBC 2-5 /HPF (0-1) H Urine WBC 26-50 /HPF (0-1) H Urine Squamous Epithelial Cells RARE /HPF (0-2) Urine Bacteria MANY /HPF (None Seen) White Blood Count 6.0 K/uL (4.8-10.8) Red Blood Count 3.74 MIL/uL (4.00-5.50) L Hemoglobin 11.2 g/dL (12.0-16.0) L Hematocrit 33.6 % (36-48) L Mean Corpuscular Volume 89.8 fL (79-99) Mean Corpuscular Hemoglobin 29.9 pg (27.0-33.0) Mean Corpuscular Hemoglobin Concent 33.3 g/dL (32.0-36.0) Red Cell Distribution Width 11.6 % (11.0-15.5) Platelet Count 248 K/uL (130-400) Mean Platelet Volume 9.8 fL (7.5-10.5) Immature Granulocyte % (Auto) 0.3 % (0-1) Neutrophils (%) (Auto) 53.3 % (40.0-77.0) Lymphocytes (%) (Auto) 34.9 % (21.0-51.0) Monocytes (%) (Auto) 8.3 % (3.0-13.0) Eosinophils (%) (Auto) 2.2 % (0.0-8.0) Basophils (%) (Auto) 1.0 % (0.0-5.0) Neutrophils # (Auto) 3.2 K/uL (1.8-7.7) Lymphocytes # (Auto) 2.1 K/uL (1.0-4.8) Monocytes # (Auto) 0.5 K/uL (0.1-1.0) Eosinophils # (Auto) 0.13 K/uL (0.00-0.70) Basophils # (Auto) 0.06 K/uL (0.00-0.20) Absolute Immature Granulocyte (auto 0.02 K/uL (0-1) Nucleated Red Blood Cells 0.0 % (0.0-0.19) Sodium Level 143 mmol/L (136-145) Potassium Level 4.1 mmol/L (3.5-5.1) Chloride Level 109 mmol/L (101-111) Carbon Dioxide Level 31 mmol/L (21-32) Blood Urea Nitrogen 8 mg/dL (7-18) Creatinine 0.5 mg/dL (0.5-1.0) Glomerular Filtration Rate Calc 114 mL/min (>90) Random Glucose 90 mg/dL (70-105) Total Calcium 8.7 mg/dL (8.5-10.1) RENAL ULTRASOUND DEMONSTRATES A 5.4 CM NONOBSTRUCTING STONE IN THE LEFT KIDNEY. PATIENT DOES HAVE AN ACUTE CYSTITIS WITH HEMATURIA RENAL FUNCTION IS NORMAL PATIENT DISCHARGED HOME WITH THE AUGMENTIN AND TOLD TO SEE HER DOCTOR IN THE NEXT 1-2 DAYS Labs Reviewed?: Yes ED Course ED Course Orders Procedure Category Date Status Time Urinalysis Profile LAB 08/21/24 Complete 22:58 Cbc With Differential LAB 08/21/24 Complete 23:06 0.9%Nacl 1000ml (Ns PHA 08/21/24 Complete 1000ml) 23:30 Ketorolac PHA 08/21/24 Complete Tromethamine 30mg/Ml 23:30 Basic Metabolic Panel LAB 08/21/24 Complete 23:06 Us Renal Sonogram US 08/21/24 Taken 23:06 Culture Urine JOSE 08/21/24 In Process 23:11 Phenazopyridine Hcl PHA 08/21/24 Complete 200 Mg Tab (Pyridium 23:30 Amox/Clav 875/125mg PHA 08/21/24 Complete Tab (Augmentin 875-1 23:51 Current Medications Medications (Trade) Dose Ordered Sig/Damian Route PRN Reason Start Time Stop Time Status Last Admin Dose Admin Amoxicillin/ Clavulanate Potassium (Augmentin 875-125 Tablet) 1 each ONCE STAT PO 08/21/24 23:51 08/21/24 23:54 DC Ketorolac Tromethamine (toRADol) 30 mg ONCE ONCE IVP 08/21/24 23:30 08/21/24 23:31 DC Phenazopyridine HCl (PYRIdium HCL 200 MG TAB) 200 mg ONCE ONCE PO 08/21/24 23:30 08/21/24 23:31 DC Sodium Chloride 1,000 ml @ 0 mls/hr ONCE ONCE IV 08/21/24 23:30 08/21/24 23:31 DC Vital Signs Date Time Temp Pulse Resp B/P (MAP) Pulse Ox O2 Delivery O2 Flow Rate FiO2 08/21/24 22:51 98.4 56 20 122/85 100 Room Air Medical Decision Making MDM MEDICAL DECISION-MAKING BASED ON BASIC LABS, URINALYSIS AND RENAL ULTRASOUND PATIENT HAS A NONOBSTRUCTIVE LEFT RENAL STONE 5 X 4 MM NO HYDRONEPHROSIS ACUTE CYSTITIS WITH HEMATURIA AND NORMAL RENAL FUNCTION DISCHARGED HOME WITH PYRIDIUM AND AUGMENTIN TOLD TO SEE HER DOCTOR IN 1-2 DAYS DX & DISP Disposition: Discharge Departure Impression: Primary Impression: Left renal stone Additional Impression: Urinary tract infection Condition: Stable Scripts Ibuprofen (Ibuprofen) 600 Mg Tablet 600 MG PO Q6H PRN for PAIN, #30 TAB Prov: AURORA SARKAR NP 08/22/24 Phenazopyridine HCl (Pyridium) 200 Mg Tab 200 MG PO TIDPC for 3 Days, #9 TAB TAKE WITH FOOD TO PREVENT STOMACH UPSET. Prov: AURORA SARKAR NP 08/22/24 Amoxicillin/Potassium Clav (Amox Tr-K Clv 875-125 mg Tab) 875 Mg-125 Mg Tablet 1 EACH PO BID for 7 Days, #14 TAB 0 Refills Prov: AURORA SARKAR NP 08/22/24 Additional Instructions: FOLLOW-UP WITH PRIMARY CARE PROVIDER IN 1 TO 2 DAYS. TAKE MEDICATIONS DIRECTED HERE IN THE EMERGENCY ROOM. OKAY TO CONTINUE HOME MEDICATIONS UNLESS OTHERWISE DISCUSSED DURING YOUR VISIT IN THE EMERGENCY ROOM TODAY. RETURN TO YOUR NEAREST EMERGENCY ROOM IF SYMPTOMS WORSEN OR IF THERE IS NO IMPROVEMENT. CALL 911 IF YOU NEED IMMEDIATE ASSISTANCE. TAKE TYLENOL OR MOTRIN [id number] NEEDED AND IF NO CONTRAINDICATIONS ARE PRESENT. INCREASE ORAL HYDRATION. A WOUND CULTURE OR URINE CULTURE WAS ORDERED HERE IN THE EMERGENCY ROOM DEPARTMENT PLEASE FOLLOW-UP WITH PRIMARY CARE PROVIDER AND ADVISE THEM TO GET REPEAT PORTS FROM OUR FACILITY. IF YOU HAD ANY CESAR WRAP/SPLINTS THAT WERE APPLIED HERE, PLEASE DO NOT REMOVE THEM UNTIL YOU SEE YOUR PRIMARY CARE OR SPECIALTY. TAKE ANTIBIOTICS DIRECTED UNTIL GONE. TAKE PYRIDIUM DIRECTED FOR THE NEXT THREE DAYS. REMEMBER THE PYRIDIUM WILL TURN YOUR URINE ORANGE RED. INCREASE YOUR WATER INTAKE., SEE YOUR PRIMARY CARE DOCTOR FOR FOLLOW UP AND MANAGEMENT. Referrals: MARINA FUENTES (PCP) Time of Disposition: 00:12 I have reviewed the case, and I agree with, Diagnosis and Plan AURORA SARKAR NP Aug 21, 2024 23:11
[2024-08-21 23:14] LABS: BACTERIA,URINE MANY /HPF (None Seen); MUCUS,URINE RARE LPF (None Seen); SQUAMOUS EPITHELIAL CELL,UR RARE /HPF (0-2); WBC,URINE 26-50 /HPF (0-1)
[2024-08-21 23:47] LABS: BASOPHILS # (AUTO) 0.06 K/uL (0.00-0.20); EOSINOPHILS # (AUTO) 0.13 K/uL (0.00-0.70); EOSINOPHILS % (AUTO) 2.2 % (0.0-8.0); HEMATOCRIT 33.6 % (36-48); IMMATURE GRANULOCYTE ABSOLUTE 0.02 K/uL (0-1); LYMPHOCYTES # (AUTO) 2.1 K/uL (1.0-4.8); LYMPHOCYTES % (AUTO) 34.9 % (21.0-51.0); MEAN CORPUSCULAR HEMOGLOBIN 29.9 pg (27.0-33.0); MEAN CORPUSCULAR HGB CONC 33.3 g/dL (32.0-36.0); MEAN CORPUSCULAR VOLUME 89.8 fL (79-99); MONOCYTES # (AUTO) 0.5 K/uL (0.1-1.0); MONOCYTES % (AUTO) 8.3 % (3.0-13.0); NEUTROPHILS # (AUTO) 3.2 K/uL (1.8-7.7); NEUTROPHILS % (AUTO) 53.3 % (40.0-77.0); PLATELET COUNT (AUTO) 248 K/uL (130-400); RED BLOOD CELL COUNT(AUTO) 3.74 MIL/uL (4.00-5.50); RED CELL DISTRIBUTION WIDTH 11.6 % (11.0-15.5)
[2024-08-21 23:54] LABS: CREATININE 0.5 mg/dL (0.5-1.0); POTASSIUM 4.1 mmol/L (3.5-5.1)
[2024-08-22] MEDS ORDERED: IBUP-2070 PO (00:14)
--- NOTE | 2024-08-22 00:24 | NUR ---
assumed pt care at this time
[2024-08-22] MEDS: 0.9%NACL 1000ML 1,000 ML IV ONE (00:44)
[2024-08-22] MEDS: PHENAZOpyridine HCL 200 MG TAB 200 MG TABLET PO ONE (00:44)
[2024-08-22] MEDS: AMOX/CLAV 875/125MG TAB PO STA (00:44)
[2024-08-22] MEDS: ketOROlac 30MG VIAL (30MG/ML) IVP ONE (00:45)
[2024-08-22] MEDS: HYDROMORPHONE HCL 2 MG PO ONE (01:58)
[2024-08-22 02:26] VITALS: BP 115/67; PULSE 57; RESP 18; TEMP 98.2; O2SAT 100
--- NOTE | 2024-08-22 11:05 | HMCIMG ---
US RENAL SONOGRAM REASON: LEFT FLANK PAIN RADIATING LEFT LOWER QUADRANT COMPARISON: None TECHNIQUE: Renal and bladder sonogram was performed FINDINGS: Right kidney is 11.1 x 4.8 x 6.0 cm. The left is 10.8 x 5.6 x 4.7 cm. There is no mass or hydronephrosis. There is a 5 mm echogenic focus midportion of the left kidney which may be a nonobstructing stone. Urinary bladder is only partially filled. Visualized portions appear unremarkable. IMPRESSION: 1. Probable 5 mm nonobstructing stone left kidney. 2. Otherwise normal bilateral renal sonogram.
== END 2024-08-22 02:28 | disposition home or self-care (01) ==
LOC: EDH 22:49
DX: N20.0 Calculus of kidney (principal); N39.0 Urinary tract infection, site not specified; E03.9 Hypothyroidism, unspecified; E11.9 Type 2 diabetes mellitus without complications; F41.9 Anxiety disorder, unspecified; F31.9 Bipolar disorder, unspecified; F43.10 Post-traumatic stress disorder, unspecified; Z79.899 Other long term (current) drug therapy
CPT/HCPCS: 99285; 76770; 80048; 85025; 87086 ×2; 87186; 81001; 36415; 96374; 96361; J1885; J7030